=== PATIENT | female | born 1985 | race Caucasian/White ===

== ENCOUNTER 2016-04-04 04:30 | Emergency (ER) | payer OTHER ==
[2016-04-04] MEDS ORDERED: SODIUM CHLORIDE 1,000 ML IV STA (05:35)
[2016-04-04] MEDS ORDERED: ONDANSETRON 4 MG/2 ML VIAL IVPB ONE (05:35)
[2016-04-04 05:55] VITALS: TEMP 98.1; BMI 41.8
[2016-04-04] MEDS ORDERED: ONDANSETRON 4 MG/2 ML VIAL ONE (06:07)
--- NOTE | 2016-04-04 06:12 | PDOC ---
[id number] 4d CHEST PAIN Time Seen by Provider: 04/04/16 04:34 History Source: Patient, Family Exam Limitations: Intoxication - History of Present Illness Initial Comments: 04/04/16 05:37 31yo Female presented to ED via EMS from home for chest pain. According to patients' 13yo daughter patient had been drinking vodka since yesterday night. Unable to get history of present illness from patient due to clinical condition. Patient however, denies drug use. LNMP: Mar 05. She denies any other complaints at this time. Timing/Duration: 4-6 hours Modifying Factors: worse with: cold therapy, eating, immobilization, medication , movement, rest, other Associated Symptoms: denies: denies symptoms, chest pain, cough, diaphoresis, fever/chills, headaches, loss of appetite, malaise, nausea/vomiting, rash, seizure, shortness of breath, syncope, weakness, other Past History - Travel Traveled outside of the country in the last 30 days: No Close contact w/someone who was outside of country & ill: No - Past Medical History Allergies/Adverse Reactions: Allergies Allergy/AdvReac Type Severity Reaction Status Date / Time No Known Allergies Allergy Verified 04/04/16 04:42 Home Medications: Ambulatory Orders Alprazolam [Xanax] 0.25 mg PO BID PRN 10/31/15 Anemia: Yes (b12) Asthma: No Cancer: No Cardiac Disorders: No CVA: No COPD: No CHF: No Dementia: No Diabetes: No GI Disorders: Yes (gallstone) Disorders: No HTN: No Hypercholesterolemia: No Liver Disease: No Psychiatric Problems: Yes (ANXIETY) Seizures: No Thyroid Disease: No - Surgical History Abdominal Surgery: No Appendectomy: No Cardiac Surgery: No Cholecystectomy: Yes Lung Surgery: No Neurologic Surgery: No Orthopedic Surgery: No - Immunization History Immunization Up to Date: Yes - Psycho/Social/Smoking Cessation Hx Anxiety: Yes Suicidal Ideation: No Smoking Status: Yes Smoking History: Never smoked Have you smoked in the past 12 months: No Number of Cigarettes Smoked Daily: 2 Cigars Per Day: 0 Information on smoking cessation initiated: No Hx Alcohol Use: No Drug/Substance Use Hx: No Substance Use Type: None Hx Substance Use Treatment: No Review of Systems - Review of Systems Constitutional: Yes: Other (Intoxication) HEENTM: No: Blurred Vision, Cataracts Respiratory: No: Cough, Orthopnea, Shortness of Breath, Stridor, Wheezing Cardiac (ROS): Yes: Chest Pain. No: Edema, Irregular Heart Rate, Palpitations, Chest Tightness ABD/GI: No: Diarrhea, Nausea, Vomiting : No: Burning, Dysuria, Frequency, Flank Pain, Hematuria Musculoskeletal: No: Back Pain, Muscle Pain Integumentary: No: Bruising, Dryness, Rash Neurological: No: Headache, Numbness, Seizure, Tingling, Tremors, Weakness, Dizziness All Other Systems: Reviewed and Negative *Physical Exam - Vital Signs Last Vital Signs Temp Pulse Resp BP Pulse Ox 98.1 F 79 20 110/63 98 04/04/16 04:42 04/04/16 04:42 04/04/16 04:42 04/04/16 04:42 04/04/16 04:42 - Physical Exam General Appearance: Yes: Intoxicated. No: Mild Distress, Moderate Distress, Severe Distress HEENT: positive: EOMI, ARLETH (Dilated pupils), Normal ENT Inspection Neck: positive: Trachea midline, Supple. negative: Stridor, Lymphadenopathy (R) , Lymphadenopathy (L) Respiratory/Chest: positive: Lungs Clear, Normal Breath Sounds Cardiovascular: positive: Regular Rhythm, Regular Rate Gastrointestinal/Abdominal: positive: Normal Bowel Sounds, Soft, Other (Large Abdomen) Lymphatic: negative: Adenopathy Musculoskeletal: positive: Normal Inspection. negative: CVA Tenderness, CVA Tenderness (R), CVA Tenderness (L), Decreased Range of Motion Extremity: positive: Normal Capillary Refill, Normal Inspection, Normal Range of Motion Integumentary: positive: Normal Color, Dry, Warm. negative: Rash, Swelling Medical Decision Making - Medical Decision Making 04/04/16 06:17 Patient refusing all treatment at this time. Patient is intoxicated. *DC/Admit/Observation/Transfer Diagnosis at time of Disposition: Alcohol intoxication Qualifiers: Complication of substance-induced condition: uncomplicated Qualified Code(s): F10.120 - Alcohol abuse with intoxication, uncomplicated - Discharge Dispostion Disposition: HOME Condition at time of disposition: Improved - Patient Instructions Printed Discharge Instructions: DI for Alcohol Abuse Additional Instructions: Drink plenty of fluids today eating bland food only and advance as tolerated. Avoid alcohol use. Follow-up with the PCP as needed.
--- NOTE | 2016-04-04 07:51 | PDOC ---
*Physical Exam - Vital Signs Last Vital Signs Temp Pulse Resp BP Pulse Ox 98.1 F 79 20 110/63 98 04/04/16 04:42 04/04/16 04:42 04/04/16 04:42 04/04/16 04:42 04/04/16 04:42 ED Treatment Course - Medications Given in the ED: ED Medications Discontinued Medications Generic Name Dose Route Start Last Admin Trade Name Randall PRN Reason Stop Dose Admin Sodium Chloride 1,000 mls @ 1,000 mls/hr 04/04/16 05:35 04/04/16 06:30 Normal Saline - IV 04/04/16 06:34 Not Given ASDIR STA Ondansetron HCl 4 mg 04/04/16 05:35 04/04/16 06:30 Zofran Injection IVPB 04/04/16 05:36 Not Given ONCE ONE Medical Decision Making - Medical Decision Making 04/04/16 07:50 Patient received from nurse practitioner Wilner. Patient here for alcohol intoxication. patient refusing lab work and fluids. Patient is arousable but requesting to sleep and be left alone. Teenage daughter at bedside also sleeping. Will reevaluate shortly 04/04/16 09:34 Patient is ambulatory and using the phone. Patient is requesting to go home. Patient states is waiting for ride from her mother. Patient to be discharged. Revitalize Selected Entries 04/04/16 09:53 Pulse Rate [ 83 Radial] Respiratory 18 Rate Blood Pressure 100/69 [Right Arm] O2 Sat by Pulse 100 Oximetry (%) *DC/Admit/Observation/Transfer Diagnosis at time of Disposition: Alcohol intoxication Qualifiers: Complication of substance-induced condition: uncomplicated Qualified Code(s): F10.120 - Alcohol abuse with intoxication, uncomplicated - Discharge Dispostion Disposition: HOME Condition at time of disposition: Improved - Patient Instructions Printed Discharge Instructions: DI for Alcohol Abuse Additional Instructions: Drink plenty of fluids today eating bland food only and advance as tolerated. Avoid alcohol use. Follow-up with the PCP as needed.
[2016-04-04 09:54] VITALS: BP 100/69; PULSE 83
--- NOTE | 2016-04-04 12:24 | EKG ---
Test Reason : Blood Pressure : / mmHG Vent. Rate : 090 BPM Atrial Rate : 090 BPM P-R Int : 174 ms QRS Dur : 104 ms QT Int : 368 ms P-R-T Axes : 007 074 032 degrees QTc Int : 450 ms NORMAL SINUS RHYTHM NORMAL ECG WHEN COMPARED WITH ECG OF 31-OCT-2015 09:15, NO SIGNIFICANT CHANGE WAS FOUND Confirmed by MER CARMICHAEL MD ([id number]) on 04/04/2016 12:23:52 PM Referred By: Confirmed By:MER CARMICHAEL MD
== END 2016-04-04 09:52 | disposition home or self-care (01) ==
LOC: JER 04:30
DX: F10.120 Alcohol abuse with intoxication, uncomplicated (principal)
CPT/HCPCS: 93005; 93010; 99283-25

== ENCOUNTER → 2016-07-15 | Emergency (ER) | payer OTHER ==
[2016-07-15 17:15] VITALS: TEMP 98; BMI 38.9
--- NOTE | 2016-07-15 17:25 | PDOC ---
History of Present Illness - General History Source: Patient Exam Limitations: No Limitations <Gamal Navarro - Last Filed: 07/15/16 18:49> <Lasha Trevizo - Last Filed: 07/15/16 19:36> - General Chief Complaint: Chest Pain Stated Complaint: LT SIDE FACE PAIN/CHEST PAIN Time Seen by Provider: 07/15/16 17:20 - History of Present Illness Initial Comments: 31 yo F with h/o anxiety, GERD, cholecystectomy and tubal ligation presented to the ED with chest pain and RLQ pain. The chest pain started few days ago in upper chest bilaterally radiates to L jaw and this morning a new chest pain started substernal, 10/10, radiates to her back, associated with nausea, resolved now. Her RLQ pain is dull, non-radiating, 10/10 at worst, associated with yellowish spotting. Her last menstrual period was on 06/27 and her periods have been regular. Denies fever, chills, vomiting, sob, urinary or bowel symptoms. (Gamal Navarro) Past History - Past Medical History Anemia: Yes (b12) Asthma: No Cancer: No Cardiac Disorders: No CVA: No COPD: No CHF: No Dementia: No Diabetes: No GI Disorders: Yes (gallstone) Disorders: No HTN: No Hypercholesterolemia: No Liver Disease: No Psychiatric Problems: Yes (ANXIETY) Seizures: No Thyroid Disease: No - Surgical History Abdominal Surgery: No Appendectomy: No Cardiac Surgery: No Cholecystectomy: Yes Lung Surgery: No Neurologic Surgery: No Orthopedic Surgery: No - Immunization History Immunization Up to Date: Yes - Psycho/Social/Smoking Cessation Hx Anxiety: Yes Suicidal Ideation: No Smoking Status: Yes Smoking History: Never smoked Have you smoked in the past 12 months: No Number of Cigarettes Smoked Daily: 2 Cigars Per Day: 0 Information on smoking cessation initiated: No Hx Alcohol Use: No Drug/Substance Use Hx: No Substance Use Type: None Hx Substance Use Treatment: No <Gamal Navarro - Last Filed: 07/15/16 18:49> <Lasha Trevizo - Last Filed: 07/15/16 19:36> - Past Medical History Allergies/Adverse Reactions: Allergies Allergy/AdvReac Type Severity Reaction Status Date / Time No Known Allergies Allergy Verified 04/04/16 04:42 Home Medications: Ambulatory Orders NK [No Known Home Medication] 07/15/16 Cardiac Specific PMH - Complaint Specific PMHX GERD: Yes Pacemaker: No <RamonGamal - Last Filed: 07/15/16 18:49> Review of Systems - Review of Systems Able to Perform ROS?: Yes Is the patient limited [place] proficient: No Constitutional: No: Chills, Fever Respiratory: No: Cough, Shortness of Breath Cardiac (ROS): Yes: Chest Pain, Lightheadedness ABD/GI: Yes: Other (RLQ pain) : No: Dysuria <Gamal Navarro - Last Filed: 07/15/16 18:49> *Physical Exam - Physical Exam General Appearance: No: Apparent Distress Respiratory/Chest: positive: Lungs Clear, Normal Breath Sounds Cardiovascular: positive: Regular Rhythm, Regular Rate, S1, S2. negative: Murmur Gastrointestinal/Abdominal: positive: Normal Bowel Sounds, Soft, Tenderness (RLQ ). negative: Distended Musculoskeletal: negative: CVA Tenderness (R), CVA Tenderness (L) Neurologic: positive: Fully Oriented, Alert <Gamal Navarro - Last Filed: 07/15/16 18:49> - Vital Signs Last Vital Signs Temp Pulse Resp BP Pulse Ox 98 F 65 16 108/65 100 07/15/16 17:12 07/15/16 18:31 07/15/16 18:31 07/15/16 18:31 07/15/16 18:31 ED Treatment Course - LABORATORY CBC & Chemistry Diagram: 07/15/16 18:25 07/15/16 18:25 <Gamal Navarro - Last Filed: 07/15/16 18:49> - LABORATORY CBC & Chemistry Diagram: 07/15/16 18:25 07/15/16 18:25 <Santhosh,Lasha - Last Filed: 07/15/16 19:36> - ADDITIONAL ORDERS Additional order review: Laboratory Results 07/15/16 18:00 Urine Color Yellow Urine Appearance Clear Urine pH 5.0 Ur Specific [place] 1.029 Urine Protein Negative Urine Glucose (UA) Negative Urine Ketones Trace H Urine Blood Negative Urine Nitrite Negative Urine Bilirubin Negative Urine Urobilinogen Negative Ur Leukocyte Esterase Negative Urine HCG, Qual Negative 07/15/16 18:25 RBC 4.35 MCV 86.6 MCHC 33.5 RDW 13.5 MPV 7.9 Neutrophils % 62.1 Lymphocytes % 27.9 Monocytes % 6.9 Eosinophils % 2.7 Basophils % 0.4 Medical Decision Making <Gamal Navarro - Last Filed: 07/15/16 18:49> <Lasha Trevizo - Last Filed: 07/15/16 19:36> - Medical Decision Making 07/15/16 18:10 ACS unlikely. Will obtain UA and test (Gamal Navarro) *DC/Admit/Observation/Transfer - Discharge Dispostion Admit: No <Gamal Navarro - Last Filed: 07/15/16 18:49> - Discharge Dispostion Admit: No <Lasha Trevizo - Last Filed: 07/15/16 19:36> Diagnosis at time of Disposition: Atypical chest pain - Discharge Dispostion Disposition: HOME Condition at time of disposition: Stable - Referrals Referrals: Allison Gomes MD [Primary Care Provider] - - Patient Instructions Printed Discharge Instructions: DI for Atypical Chest Pain Additional Instructions: You were seen in the ER for pain in the chest and lower abdomen. All lab works are normal and the pains are not likely associated with any life threatening condition. Please follow up with your primary doctor and come back to the ER if the symptoms are getting worse.
[2016-07-15 18:18] LABS: URINE APPEARANCE CLEAR; URINE BILIRUBIN NEGATIVE (NEGATIVE); URINE BLOOD NEGATIVE (NEGATIVE); URINE COLOR YELLOW; URINE GLUCOSE (UA) NEGATIVE (NEGATIVE); URINE KETONE TRACE (NEGATIVE); URINE LEUK ESTERASE NEGATIVE (NEGATIVE); URINE NITRITE NEGATIVE (NEGATIVE); URINE PROTEIN NEGATIVE (NEGATIVE); URINE UROBILINOGEN NEGATIVE E.U./dl (0.2-1.0)
[2016-07-15 18:32] VITALS: BP 108/65; PULSE 65
[2016-07-15 18:34] LABS: BASOPHIL 0.4 % (0-2.0); EOSINOPHIL 2.7 % (0-4.5); MCHC 33.5 g/dl (32.0-36.0); MEAN CELL VOLUME 86.6 fl (80-96); MEAN PLT VOLUME 7.9 fl (7.5-11.1); NEUTROPHILS 62.1 % (42.8-82.8); PLATELET COUNT 297 K/MM3 (134-434); RDW 13.5 % (11.6-15.6); WHITE BLOOD COUNT 9.4 K/mm3 (4.0-10.0)
--- NOTE | 2016-07-15 18:54 | PDOC ---
Attending Attestation - Resident Resident Name: Gamal Navarro - ED Attending Attestation I have performed the following: I have examined & evaluated the patient, The case was reviewed & discussed with the resident, I agree w/resident's findings & plan - HPI HPI: 07/15/16 18:49 31y F hx of anxiety, gerd, s/p cholecystectomy presents with chest pain. Pt states she came to the ED today due to a mid epigastric/substernal pain that started when she sitting on the bus, was squeezing in nature, and radiated to back associated w/ nausea lasting for approx 20-30 min. Pt endorses feeling sypmtoms like this frequently in the past and has been reerred to cardiology - had a holter monitor and stress test in late 2015 that was normal. The pt was also referred to GI in the past. Therew as no associated sob, cough, numbness/ tingling/weakness, fever/chills. Pt also endorsed having a mild rlq pain associated with brownish spotting, no urinary complaints. pt symptoms have resolved and pt states she feels fine currently. her sypmtoms are not associated with exertion. i doubt the pts sypmtoms are cardiac in nature. her ekg is normal here as symptoms resolved, i doubt pancreatitis consider possible esophageal spasm? no tenderness on my exam to her abdomen will ck basic labs, cmp, ua hcg to r/o if neg will dc the pt to fu with pmd - Physicial Exam PE: 07/18/16 10:17 see above - Medical Decision Making 07/18/16 10:17 see [email or web address] Heart Score/ECG Review - ECG Impressions Comment:: 07/15/16 18:49 Twelve-lead EKG was performed and reviewed by me. There is normal sinus rhythm with a normal rate. Rate of 66 The axis is normal. The intervals are normal. There is normal R wave progression There are no ST or T wave abnormalities. Impression: Normal twelve-lead EKG
[2016-07-15 19:16] LABS: ALBUMIN 3.8 g/dl (3.4-5.0); ANION GAP 9 (8-16); BILIRUBIN,TOTAL 0.6 mg/dL (0.2-1.0); CALCIUM 9.1 mg/dL (8.5-10.1); CO2 28 mmol/L (21-32); COCKROFT - GAULT 185.045; CREATININE 0.7 mg/dL (0.55-1.02); GLUCOSE,RANDOM 93 mg/dL (74-106); SGOT/AST 18 U/L (15-37); SGPT/ALT 34 U/L (12-78); TOT PROT 7.3 g/dl (6.4-8.2)
[2016-07-15 19:17] LABS: ALK PHOS 77 U/L (45-117)
--- NOTE | 2016-07-16 09:54 | EKG ---
Test Reason : Blood Pressure : / mmHG Vent. Rate : 066 BPM Atrial Rate : 066 BPM P-R Int : 144 ms QRS Dur : 108 ms QT Int : 410 ms P-R-T Axes : 001 051 041 degrees QTc Int : 429 ms NORMAL SINUS RHYTHM RCVD WHEN COMPARED WITH ECG OF 04-APR-2016 04:42, NO SIGNIFICANT CHANGE WAS FOUND Confirmed by MD SANTAMARIA MARJORY ([id number]) on 07/16/2016 9:54:43 AM Referred By: Confirmed By:LOR SANTAMARIA MD
== END | disposition home or self-care (01) ==
LOC: JER 17:05
DX: R07.89 Other chest pain (principal); K21.9 Gastro-esophageal reflux disease without esophagitis; F41.9 Anxiety disorder, unspecified
CPT/HCPCS: 36415; 80053; 81003; 84703; 85025; 93005; 93010; 99283-25

== ENCOUNTER 2016-08-22 10:37 | Emergency (ER) | payer OTHER ==
[2016-08-22 10:57] VITALS: TEMP 98; BMI 38.0
[2016-08-22] MEDS ORDERED: morphine CARPU-JECT 4 MG/1 ML DISP.SYRIN IVPUSH ONE (11:12)
[2016-08-22] MEDS ORDERED: ONDANSETRON 4 MG/2 ML VIAL IVPUSH ONE (11:12)
[2016-08-22] MEDS ORDERED: SODIUM CHLORIDE 1,000 ML IV STA (11:12)
--- NOTE | 2016-08-22 11:21 | PDOC ---
History of Present Illness - General History Source: Patient Exam Limitations: No Limitations <Sunny Hawk - Last Filed: 08/22/16 13:23> - General History Source: Patient Exam Limitations: No Limitations - History of Present Illness Initial Comments: 08/22/16 11:21 The patient is a 31 year old female with a significant past medical history of anxiety, GERD s/p cholecystectomy, presenting to the Emergency Department with right side flank pain since yesterday. The patient describes the pain as an intermittent sharp and squeezing sensation to her right side, nonradiating. She states that the pain started gradually yesterday afternoon, and admits that she felt fine yesterday morning. She denies exacerbating factors, and reports that pressing on her side or leaning to the right slightly alleviates the pain. She also reports nausea, but denies vomiting. She denies previously experiencing similar pain. The patient denies history of kidney stones. Patient denies vomiting, or diarrhea. Patient denies fever, cough, and chills. Patient denies dysuria, urinary frequency, and urgency. Patient denies headache, dizziness, and visual changes. Surgical Hx: tubal ligation <Angelique Castro - Last Filed: 08/22/16 13:40> - General Chief Complaint: Pain Stated Complaint: ABD/ SIDE PAIN Time Seen by Provider: 08/22/16 11:04 Past History - Past Medical History Anemia: Yes (b12) Asthma: No Cancer: No Cardiac Disorders: No CVA: No COPD: No CHF: No Dementia: No Diabetes: No GI Disorders: Yes (gallstone) Disorders: No HTN: No Hypercholesterolemia: No Liver Disease: No Psychiatric Problems: Yes (ANXIETY) Seizures: No Thyroid Disease: No - Surgical History Abdominal Surgery: No Appendectomy: No Cardiac Surgery: No Cholecystectomy: Yes Lung Surgery: No Neurologic Surgery: No Orthopedic Surgery: No - Reproductive History Cervical CA: No Dysfunctional Uterine Bleeding: No Ectopic : No Endometrial CA: No Therapeutic (s) & number: No Tubal Ligation: Yes - Immunization History Immunization Up to Date: Yes - Psycho/Social/Smoking Cessation Hx Anxiety: Yes Suicidal Ideation: No Smoking Status: Yes Smoking History: Current some day smoker Have you smoked in the past 12 months: No Number of Cigarettes Smoked Daily: 3 Cigars Per Day: 0 Information on smoking cessation initiated: Yes 'Breaking Loose' booklet given: 08/22/16 Hx Alcohol Use: No Drug/Substance Use Hx: Yes (occassionally) Substance Use Type: None Hx Substance Use Treatment: No <Sunny Hawk - Last Filed: 08/22/16 13:23> <Angelique Castro - Last Filed: 08/22/16 13:40> - Past Medical History Allergies/Adverse Reactions: Allergies Allergy/AdvReac Type Severity Reaction Status Date / Time No Known Allergies Allergy Verified 08/22/16 10:57 Home Medications: Ambulatory Orders Naproxen [Naprosyn -] 500 mg PO BID PRN #20 tablet 08/22/16 Ondansetron HCl [Zofran] 4 mg PO Q8H PRN #15 tablet 08/22/16 Oxycodone HCl/Acetaminophen [Percocet 5-325 mg Tablet] 1 tab PO Q6H PRN #15 tablet MDD 4 08/22/16 Tamsulosin HCl [Flomax] 0.4 mg PO DAILY #14 cap.er.24h 08/22/16 Review of Systems - Review of Systems Able to Perform ROS?: Yes Comments:: 08/22/16 11:21 CONSTITUTIONAL: No reported: Fever, Chills, Diaphoresis, Generalized Weakness, Malaise, Loss of Appetite HEENT: No reported: Rhinorrhea, Nasal Congestion, Throat Pain, Throat Swelling, Difficulty Swallowing, Mouth Swelling, Ear Pain, Eye Pain, Visual Changes CARDIOVASCULAR: No reported: Chest Pain, Syncope, Palpitations, Irregular Heart Rate, Lightheadedness, Peripheral Edema RESPIRATORY: No reported: Cough, Shortness of Breath, SOB with Exertion, Orthopnea, Wheezing , Stridor, Hemoptysis GASTROINTESTINAL: Reported: + nausea No reported: Abdominal pain, Abdominal Distension, Vomiting, Diarrhea, Constipation, Melena, Hematochezia GENITOURINARY: Reported: + right side flank pain No reported: Dysuria, Frequency, Urgency, Hesitancy, Genital Pain MUSCULOSKELETAL: No reported: Myalgia, Arthralgia, Joint Swelling, Back pain, Neck Pain SKIN: No reported: Rash, Itching, Pallor HEMATOLOGIC/IMMUNOLOGIC: No reported: Easy Bleeding, Easy Bruising, Lymphadenopathy, Frequent infections ENDOCRINE: No reported: Unexplained Weight Gain, Unexplained Weight Loss, Heat Intolerance , Cold Intolerance NEUROLOGIC: No reported: Headache, Focal Weakness, Paresthesias, Vertigo, Lightheadedness, Unsteady Gait, Seizure, Mental Status Changes, Incontinence PSYCHIATRIC: No reported: Anxiety, Depression <Angelique Castro - Last Filed: 08/22/16 13:40> *Physical Exam - Vital Signs Last Vital Signs Temp Pulse Resp BP Pulse Ox 98 F 98 H 16 104/60 98 08/22/16 10:51 08/22/16 10:51 08/22/16 10:51 08/22/16 10:51 08/22/16 10:51 <Sunny Hawk - Last Filed: 08/22/16 13:23> - Vital Signs Last Vital Signs Temp Pulse Resp BP Pulse Ox 98 F 98 H 16 104/60 98 08/22/16 10:51 08/22/16 10:51 08/22/16 10:51 08/22/16 10:51 08/22/16 10:51 - Physical Exam Comments: 08/22/16 11:21 GENERAL: The patient is awake, alert, and fully oriented, Nontoxic - in no acute distress. HEAD: Normocephalic, atraumatic. EYES: extraocular movements intact, sclera anicteric, conjunctiva clear. ENT: Normal voice, Moist mucous membranes. NECK: Normal range of motion, No JVD LUNGS: Breath sounds equal, clear to auscultation bilaterally. No wheezes, no rhonchi, no rales. HEART: Regular rate and rhythm, normal S1 and S2 without murmur, rub or gallop. ABDOMEN: Right CVA tenderness. Soft, normoactive bowel sounds. No guarding, no rebound. No masses. EXTREMITIES: Normal range of motion, no edema. No clubbing or cyanosis. No cords , erythema, or tenderness. NEUROLOGICAL: No facial asymmetry, Normal speech, normal gait. PSYCH: Normal mood, normal affect. SKIN: Warm, Dry, normal turgor. <Angelique Castro - Last Filed: 08/22/16 13:40> ED Treatment Course - LABORATORY CBC & Chemistry Diagram: 08/22/16 11:22 08/22/16 11:22 - RADIOLOGY Radiology Studies Ordered: Category Date Time Status SPIRAL- RENAL-STONE CT [CT] Stat CT Scan 08/22/16 11:12 Ordered <Sunny Hawk - Last Filed: 08/22/16 13:23> - LABORATORY CBC & Chemistry Diagram: 08/22/16 11:22 08/22/16 11:22 - RADIOLOGY Radiograph Interpretation: 08/22/16 13:[address] As reviewed by Dr. Rich Hannah IMPRESSION: Faint proximal ureteral calculus with mild fullness of the upper collecting system. <Angelique Castro - Last Filed: 08/22/16 13:40> Medical Decision Making - Medical Decision Making 08/22/16 11:18 A portion of this note was documented by scribe services under my direction. I have reviewed the details of the note, within reason, and agree with the documentation with the following case summary and management plan written by me. Patient treated in the ED. Nursing notes are reviewed and incorporated into the medical decision-making. Vital signs reviewed. Peripheral IV access obtained by the nurse, laboratory studies are drawn and sent, reviewed and interpreted by myself. Vital Signs Temp Pulse Resp BP Pulse Ox 98 F 98 H 16 104/60 98 08/22/16 10:51 08/22/16 10:51 08/22/16 10:51 08/22/16 10:51 08/22/16 10:51 31 year old female with PMH of cholecystectomy, obesity p/w R flank pain since yesterday afternoon. Reports intermittent R flank pain that's sharp with no radiation. Has nausea but no vomiting. Denies hematuria, dysuria, fevers, chills , abdominal pain. Differential includes pyelonephritis, renal colic. Need labs, UA, spiral CT, pain control and reassess. 08/22/16 13:17 CT reviewed. Demonstrated and proximal right ureteral calculus with mild fullness of the right collecting system. CBC, BMP 08/22/16 11:22 08/22/16 11:22 CMP Sodium 138 mmol/L (136-145) 08/22/16 11:22 Potassium 4.4 mmol/L (3.5-5.1) 08/22/16 11:22 Chloride 102 mmol/L (98-107) 08/22/16 11:22 Carbon Dioxide 27 mmol/L (21-32) 08/22/16 11:22 Anion Gap 9 (8-16) 08/22/16 11:22 BUN 12 mg/dL (7-18) 08/22/16 11:22 Creatinine 0.7 mg/dL (0.55-1.02) 08/22/16 11:22 Creat Clearance w eGFR > 60 (>60) 08/22/16 11:22 Random Glucose 94 mg/dL (74-106) 08/22/16 11:22 Calcium 9.2 mg/dL (8.5-10.1) 08/22/16 11:22 Total Bilirubin 0.6 mg/dL (0.2-1.0) 08/22/16 11:22 AST 11 U/L (15-37) L D 08/22/16 11:22 ALT 22 U/L (12-78) D 08/22/16 11:22 Alkaline Phosphatase 79 U/L (45-117) 08/22/16 11:22 Total Protein 7.0 g/dl (6.4-8.2) 08/22/16 11:22 Albumin 3.7 g/dl (3.4-5.0) 08/22/16 11:22 Lipase 117 U/L (73-393) 08/22/16 11:22 Urine Test Results Urine Color Straw 08/22/16 11:20 Urine Appearance Clear 08/22/16 11:20 Urine pH 7.0 (5.0-8.0) D 08/22/16 11:20 Urine Protein Negative (NEGATIVE) 08/22/16 11:20 Urine Glucose (UA) Negative (NEGATIVE) 08/22/16 11:20 Urine Ketones Negative (NEGATIVE) 08/22/16 11:20 Urine Blood Negative (NEGATIVE) 08/22/16 11:20 Urine Nitrite Negative (NEGATIVE) 08/22/16 11:20 Urine Bilirubin Negative (NEGATIVE) 08/22/16 11:20 Ur Leukocyte Esterase Negative (NEGATIVE) 08/22/16 11:20 Labs reviewed and imaging reviewed. Patient's pain is likely secondary to renal colic. Patient's pain improved with medications. Pain instructions were given. Patient's tolerating by mouth. Return precautions given. We'll refer to urologist. Discharge diagnosis: Renal colic I discussed the physical exam findings, ancillary test results and final diagnoses with the patient. I answered all of the patient's questions. The patient was satisfied with the care received and felt comfortable with the discharge plan and treatment plan. The patient will call their primary care physician within 24 hours to arrange follow-up and will return to the Emergency Department with any new, persistant or worsening symptoms. <Sunny Hawk - Last Filed: 08/22/16 13:23> *DC/Admit/Observation/Transfer - Discharge Dispostion Admit: No <Sunny Hawk - Last Filed: 08/22/16 13:23> - Attestations Scribe Attestion: 08/22/16 11:22 Documentation prepared by Angelique Castro, acting as medical underwriter for Sunny Hawk MD. <Angelique Castro - Last Filed: 08/22/16 13:40> Diagnosis at time of Disposition: Renal colic - Discharge Dispostion Disposition: HOME Condition at time of disposition: Improved - Prescriptions Prescriptions: Tamsulosin HCl [Flomax] 0.4 mg PO DAILY #14 cap.er.24h Naproxen [Naprosyn -] 500 mg PO BID PRN #20 tablet PRN Reason: Pain Oxycodone HCl/Acetaminophen [Percocet 5-325 mg Tablet] 1 tab PO Q6H PRN #15 tablet MDD 4 PRN Reason: Pain Level 6-10 Ondansetron HCl [Zofran] 4 mg PO Q8H PRN #15 tablet PRN Reason: Nausea - Referrals Referrals: Jean Clayton MD [Staff Physician] - - Patient Instructions Printed Discharge Instructions: DI for Kidney Stones Additional Instructions: Take 500 mg of naproxen every 12 hours needed for pain. For additional relief, take one tablet Percocet every 6 hours needed. Do not drink or drive on this medication as this will cause dizziness. Please take Flomax daily as prescribed to help assist with your kidney stones. For nausea, take a tablet of Zofran every 8 hours as needed. Please make an appointment with urologist. It may take several days to potentially 2 weeks to pediatric kidney stone. - Post Discharge Activity Work/School Note: Back to Work
[2016-08-22] MEDS ORDERED: ONDANSETRON 4 MG/2 ML VIAL ONE (11:28)
[2016-08-22] MEDS ORDERED: morphine CARPU-JECT 4 MG/1 ML DISP.SYRIN ONE (11:28)
[2016-08-22 11:30] LABS: BASOPHIL 0.8 % (0-2.0); EOSINOPHIL 2.7 % (0-4.5); MCH 29.1 pg (25.7-33.7); MCHC 33.7 g/dl (32.0-36.0); MEAN CELL VOLUME 86.5 fl (80-96); MEAN PLT VOLUME 7.9 fl (7.5-11.1); NEUTROPHILS 59.8 % (42.8-82.8); PLATELET COUNT 273 K/MM3 (134-434); RDW 13.7 % (11.6-15.6); WHITE BLOOD COUNT 8.5 K/mm3 (4.0-10.0)
[2016-08-22 11:38] LABS: URINE APPEARANCE CLEAR; URINE BILIRUBIN NEGATIVE (NEGATIVE); URINE BLOOD NEGATIVE (NEGATIVE); URINE COLOR STRAW; URINE GLUCOSE (UA) NEGATIVE (NEGATIVE); URINE KETONE NEGATIVE (NEGATIVE); URINE LEUK ESTERASE NEGATIVE (NEGATIVE); URINE NITRITE NEGATIVE (NEGATIVE); URINE PROTEIN NEGATIVE (NEGATIVE); URINE UROBILINOGEN NEGATIVE E.U./dl (0.2-1.0)
[2016-08-22 12:01] LABS: ALBUMIN 3.7 g/dl (3.4-5.0); ALK PHOS 79 U/L (45-117); ANION GAP 9 (8-16); BILIRUBIN,TOTAL 0.6 mg/dL (0.2-1.0); CALCIUM 9.2 mg/dL (8.5-10.1); CO2 27 mmol/L (21-32); COCKROFT - GAULT 186.8045; CREATININE 0.7 mg/dL (0.55-1.02); GLUCOSE,RANDOM 94 mg/dL (74-106); SGOT/AST 11 U/L (15-37); SGPT/ALT 22 U/L (12-78)
[2016-08-22] MEDS ORDERED: KETOROLAC TROMETHAMINE 30 MG/1 ML VIAL IVPUSH ONE (13:10)
[2016-08-22] MEDS ORDERED: TAMSULOSIN HCL 0.4 MG CAP.ER.24H (FP) PO ONE (13:16)
[2016-08-22] MEDS ORDERED: KETOROLAC TROMETHAMINE 30 MG/1 ML VIAL ONE (13:21)
[2016-08-22] MEDS ORDERED: TAMSULOSIN HCL 0.4 MG CAP.ER.24H (FP) ONE (13:21)
[2016-08-22 13:39] VITALS: BP 98/63; PULSE 68
== END 2016-08-22 13:37 | disposition home or self-care (01) ==
LOC: JER 10:37
PROC: 3E0337Z Introduction of Electrolytic and Water Balance Substance into Peripheral Vein, Percutaneous Approach (ICD-10-PCS; principal; 2016-08-22)
PROC: 3E033NZ Introduction of Analgesics, Hypnotics, Sedatives into Peripheral Vein, Percutaneous Approach (ICD-10-PCS; 2016-08-22)
PROC: 3E0333Z Introduction of Anti-inflammatory into Peripheral Vein, Percutaneous Approach (ICD-10-PCS; 2016-08-22)
PROC: 3E033GC Introduction of Other Therapeutic Substance into Peripheral Vein, Percutaneous Approach (ICD-10-PCS; 2016-08-22)
DX: N23 Unspecified renal colic (principal)
CPT/HCPCS: 36415; 74176; 80053; 81003; 83690; 84703; 85025; 87086; 96361; 96374; 96375; 99283-25

== ENCOUNTER 2016-11-23 00:30 | Emergency (ER) | payer SELFPAY ==
[2016-11-23 00:39] VITALS: BP 142/72; PULSE 68; TEMP 98.4; BMI 39.1
--- NOTE | 2016-11-23 03:20 | PDOC ---
History of Present Illness - General Chief Complaint: Rectal Bleed Stated Complaint: RECTAL BLEEDING,ABD PAIN Time Seen by Provider: 11/23/16 02:48 History Source: Patient Exam Limitations: No Limitations - History of Present Illness Travel History: No Initial Comments: 11/23/16 03:15 31yo Female patient w/ PmHx: GERD, Renal colic, , Cholecystecomy presents to ED c/o rectal bleeding, right flank pain, which began around 11pm tonight. Patient denies n/v, CP, Diff breathing, rash, fever, or any other complaints at this time. Associated diarrhea. LNMP: Tubal Ligation (2009). Timing/Duration: reports: intermittent Quality: reports: moderate, sharpness Abdominal Pain Onset Location: reports: periumbilical Pain Radiation: reports: no radiation Activities at Onset: reports: no specific activity Treatment Prior to Arrive: worse with: analgesics, antacids, cold pack, heat, laxative, enema, other Aggravating Factors: worse with: None, Defecation, Eating, Emotional upset, Exertion, [place], Movement, Voiding, Change in position Alleviating Factors: worse with: None, Belching, Shallow Breathing, Defecation, Eating, Holding Breath, Passing Gas, Change in Position, Rest, Voiding, Vomiting Past History - Travel Traveled outside of the country in the last 30 days: No Close contact w/someone who was outside of country & ill: No - Past Medical History Allergies/Adverse Reactions: Allergies Allergy/AdvReac Type Severity Reaction Status Date / Time No Known Allergies Allergy Verified 11/23/16 00:39 Home Medications: Ambulatory Orders Naproxen [Naprosyn -] 500 mg PO BID PRN #20 tablet 08/22/16 Ondansetron HCl [Zofran] 4 mg PO Q8H PRN #15 tablet 08/22/16 Oxycodone HCl/Acetaminophen [Percocet 5-325 mg Tablet] 1 tab PO Q6H PRN #15 tablet MDD 4 08/22/16 Tamsulosin HCl [Flomax] 0.4 mg PO DAILY #14 cap.er.24h 08/22/16 Anemia: Yes (b12) Asthma: No Cancer: No Cardiac Disorders: No CVA: No COPD: No CHF: No Dementia: No Diabetes: No GI Disorders: Yes (gallstone) Disorders: No HTN: No Hypercholesterolemia: No Liver Disease: No Psychiatric Problems: Yes (ANXIETY) Seizures: No Thyroid Disease: No - Surgical History Abdominal Surgery: No Appendectomy: No Cardiac Surgery: No Cholecystectomy: Yes Lung Surgery: No Neurologic Surgery: No Orthopedic Surgery: No - Reproductive History Cervical CA: No Dysfunctional Uterine Bleeding: No Ectopic : No Endometrial CA: No Therapeutic (s) & number: No Tubal Ligation: Yes - Immunization History Immunization Up to Date: Yes - Psycho/Social/Smoking Cessation Hx Anxiety: Yes Suicidal Ideation: No Smoking Status: Yes Smoking History: Current some day smoker Have you smoked in the past 12 months: No Number of Cigarettes Smoked Daily: 3 Cigars Per Day: 0 Information on smoking cessation initiated: No 'Breaking Loose' booklet given: 08/22/16 Hx Alcohol Use: No Drug/Substance Use Hx: Yes (occassionally) Substance Use Type: None Hx Substance Use Treatment: No Abd/GI Specific PMHX - Complaint Specific PMHX Colitis: No Diverticulitis: No Gall Bladder Disease: No GERD: Yes Hepatitis: No Irritable Bowel Synd (IBS): No Pancreatitis: No GI Ulcer Disease: No Review of Systems - Review of Systems Able to Perform ROS?: Yes Is the patient limited Kazakh proficient: No ABD/GI: Yes: Diarrhea, Rectal Bleeding, Abdominal cramping. No: Blood Streaked Bowels, Constipated, Nausea, Poor Appetite, Poor Fluid Intake, Vomiting, Indigestion, Tarry Stools : Yes: Flank Pain. No: Burning, Dysuria, Hematuria Musculoskeletal: No: Back Pain Neurological: No: Headache All Other Systems: Reviewed and Negative *Physical Exam - Vital Signs Last Vital Signs Temp Pulse Resp BP Pulse Ox 98.4 F 68 18 142/72 100 11/23/16 00:36 11/23/16 00:36 11/23/16 00:36 11/23/16 00:36 11/23/16 00:36 - Physical Exam General Appearance: Yes: Nourished, Appropriately Dressed. No: Apparent Distress, Mild Distress, Moderate Distress, Severe Distress Neck: positive: Trachea midline, Normal Thyroid, Supple. negative: Decreased range of motion, Stridor, Lymphadenopathy (R), Lymphadenopathy (L), Tender lateral, Tender midline Respiratory/Chest: positive: Lungs Clear, Normal Breath Sounds. negative: Chest Tender, Respiratory Distress, Accessory Muscle Use, Labored Respiration, Rapid RR Cardiovascular: positive: Regular Rhythm, Regular Rate Gastrointestinal/Abdominal: positive: Soft, Increased Bowel Sounds. negative: Tender, Protuberent, Distended, Guarding, Rebound, Tenderness Musculoskeletal: positive: Normal Inspection. negative: CVA Tenderness, CVA Tenderness (R), CVA Tenderness (L), Decreased Range of Motion, Vertebral Tenderness Extremity: positive: Normal Capillary Refill, Normal Inspection, Normal Range of Motion. negative: Pedal Edema, Swelling, Calf Tenderness, Erythema, Inflammation Integumentary: positive: Normal Color, Dry, Warm Neurologic: positive: actuarial intern II-XII NML intact, Fully Oriented, Alert, Normal Mood/ Affect, Normal Response, Motor Strength 07/26 ED Treatment Course - LABORATORY CBC & Chemistry Diagram: 11/23/16 03:55 11/23/16 03:55 *DC/Admit/Observation/Transfer Diagnosis at time of Disposition: Bleeding hemorrhoids Abdominal pain Qualifiers: Abdominal location: periumbilical Qualified Code(s): R10.33 - Periumbilical pain - Discharge Dispostion Disposition: HOME Condition at time of disposition: Stable Admit: No - Patient Instructions Printed Discharge Instructions: DI for Rectal Bleeding, DI for Hemorrhoids Additional Instructions: FOLLOW UP WITH DR. SANDRA THIS WEEK. CALL TO SCHEDULE APPOINTMENT. INCREASE FIBER, TRY OVER THE COUNTER MIRALEX AND COLACE. DRINK PLENTY FLUIDS. Print Language: ROMANSH - Post Discharge Activity Work/School Note: Back to Work
[2016-11-23 04:06] LABS: BASOPHIL 0.3 % (0-2.0); EOSINOPHIL 3.3 % (0-4.5); MCH 29.1 pg (25.7-33.7); MCHC 33.3 g/dl (32.0-36.0); MEAN CELL VOLUME 87.4 fl (80-96); MEAN PLT VOLUME 7.8 fl (7.5-11.1); PLATELET COUNT 287 K/MM3 (134-434); RDW 14.6 % (11.6-15.6); WHITE BLOOD COUNT 10.3 K/mm3 (4.0-10.0)
[2016-11-23 04:07] LABS: STOOL FOR OCCULT BLOOD NEGATIVE (NEGATIVE)
[2016-11-23] MEDS ORDERED: morphine CARPU-JECT 2 MG/1 ML DISP.SYRIN IM ONE (04:26)
[2016-11-23 04:29] LABS: ALBUMIN 3.5 g/dl (3.4-5.0); ALK PHOS 79 U/L (45-117); AMYLASE 42 U/L (25-115); ANION GAP 8 (8-16); BILIRUBIN,TOTAL 0.5 mg/dL (0.2-1.0); CALCIUM 8.8 mg/dL (8.5-10.1); CO2 26 mmol/L (21-32); CREATININE 0.6 mg/dL (0.55-1.02); GLUCOSE,RANDOM 94 mg/dL (74-106); SGOT/AST 15 U/L (15-37); SGPT/ALT 28 U/L (12-78); TOT PROT 6.9 g/dl (6.4-8.2)
[2016-11-23 04:42] LABS: URINE APPEARANCE CLEAR; URINE BILIRUBIN NEGATIVE (NEGATIVE); URINE BLOOD TRACE-INTA (NEGATIVE); URINE COLOR LT. YELLOW; URINE GLUCOSE (UA) NEGATIVE (NEGATIVE); URINE KETONE NEGATIVE (NEGATIVE); URINE LEUK ESTERASE NEGATIVE (NEGATIVE); URINE NITRITE NEGATIVE (NEGATIVE); URINE PROTEIN NEGATIVE (NEGATIVE); URINE UROBILINOGEN 0.2 mg/dL (0.2-1.0)
== END 2016-11-23 06:44 | disposition home or self-care (01) ==
LOC: JER 00:30
PROC: 3E023NZ Introduction of Analgesics, Hypnotics, Sedatives into Muscle, Percutaneous Approach (ICD-10-PCS; principal; 2016-11-23)
DX: K64.8 Other hemorrhoids (principal); D64.9 Anemia, unspecified
CPT/HCPCS: 36415; 74176-TC; 80053; 81003; 82150; 82272; 83690; 84703; 85025; 99282-25

== ENCOUNTER 2017-04-18 14:16 | Emergency (ER) | payer OTHER ==
[2017-04-18 14:36] VITALS: BP 162/82; PULSE 82; TEMP 98.3; BMI 45.1
--- NOTE | 2017-04-18 15:32 | PDOC ---
History of Present Illness - General Chief Complaint: Cold Symptoms Stated Complaint: COLD Time Seen by Provider: 04/18/17 15:13 History Source: Patient Exam Limitations: No Limitations - History of Present Illness Initial Comments: CHIEF COMPLAINT: 32 y/o afebrile female with no significant PMH c/o dry cough, body aches, fever, chills and runny nose x 3 days. HISTORY OF PRESENT ILLNESS: The patient has been taking tylenol and motrin for her symptoms. She did not get the flu shot this year. Vital signs on arrival are within normal limits. REVIEW OF SYSTEMS: GENERAL/CONSTITUTIONAL: + fever/chills. +body aches No weakness. No weight change. HEAD, EYES, EARS, NOSE AND THROAT: +runny nose. No ear pain or discharge. No sore throat. CARDIOVASCULAR: No chest pain or shortness of breath. RESPIRATORY: +dry cough. No wheezing or hemoptysis. GASTROINTESTINAL: +abdominal discomfort. No nausea, vomiting,diarrhea. GENITOURINARY: No dysuria, frequency, or change in urination. MUSCULOSKELETAL: No joint or muscle swelling or pain. No neck or back pain. SKIN: No rash or easy bruising. NEUROLOGIC: No headache, vertigo, loss of consciousness, or loss of sensation. PHYSICAL EXAM: GENERAL: The patient is awake, alert, and fully oriented, in no acute distress. SHe is non toxic but ill appearing. HEAD: Normal with no signs of trauma. ENT: Pupils equal, round and reactive to light, extraocular movements intact, sclera anicteric, conjunctiva clear. Nasal congestion. Runny nose. LUNGS: Clear to auscultation bilaterally. Normal excursion. No respiratory distress or use of accessory muscles. CV: RRR, S1/S2, no MRG. Cap refill < 2 sec. ABDOMEN: Soft, non-distended, non-tender even to deep palpation, no hepatomegaly or splenomegaly, no masses. EXTREMITIES: Normal range of motion, no edema. NEUROLOGICAL: Normal speech, normal gait. CN II-XII grossly intact. PSYCH: Normal mood, normal affect. SKIN: Warm, dry, normal turgor, no rashes or lesions noted. Past History - Past Medical History Allergies/Adverse Reactions: Allergies Allergy/AdvReac Type Severity Reaction Status Date / Time No Known Allergies Allergy Verified 11/23/16 00:39 Home Medications: Ambulatory Orders Acetaminophen [Tylenol] 650 mg PO ASDIR 04/18/17 Ibuprofen [Motrin -] 400 mg PO QID 04/18/17 Anemia: Yes (b12) Asthma: No Cancer: No Cardiac Disorders: No CVA: No COPD: No CHF: No Dementia: No Diabetes: No GI Disorders: Yes (gallstone) Disorders: No HTN: No Hypercholesterolemia: No Liver Disease: No Psychiatric Problems: Yes (ANXIETY) Seizures: No Thyroid Disease: No - Surgical History Abdominal Surgery: No Appendectomy: No Cardiac Surgery: No Cholecystectomy: Yes Lung Surgery: No Neurologic Surgery: No Orthopedic Surgery: No - Reproductive History Cervical CA: No Dysfunctional Uterine Bleeding: No Ectopic : No Endometrial CA: No Therapeutic (s) & number: No Tubal Ligation: Yes - Immunization History Immunization Up to Date: Yes - Suicide/Smoking/Psychosocial Hx Smoking Status: Yes Smoking History: Current some day smoker Have you smoked in the past 12 months: No Number of Cigarettes Smoked Daily: 3 Cigars Per Day: 0 Information on smoking cessation initiated: Yes 'Breaking Loose' booklet given: 08/22/16 Hx Alcohol Use: No Drug/Substance Use Hx: Yes (occassionally) Substance Use Type: None Hx Substance Use Treatment: No *Physical Exam - Vital Signs Last Vital Signs Temp Pulse Resp BP Pulse Ox 98.3 F 82 16 162/82 99 04/18/17 14:32 04/18/17 14:32 04/18/17 14:32 04/18/17 14:32 04/18/17 14:32 Medical Decision Making - Medical Decision Making A/P: 32 y/o female who most likely has the flu. Outside window for tamiflu. Encouraged her to continue with tylenol and motrin as she is doing, plenty of fluids and rest. She is also using albuterol inhaler every 4 hours which I suggested she continue if needed. Pt instructed to return to the ER with any worsening or concerning symptoms. The patient verbalizes understanding of all instructions, has no further questions and is awaiting discharge. *DC/Admit/Observation/Transfer Diagnosis at time of Disposition: Influenza - Discharge Dispostion Disposition: HOME Condition at time of disposition: Good - Referrals - Patient Instructions Printed Discharge Instructions: DI for Influenza -- Adult Additional Instructions: Discharge Instructions: -You have the flu -Continue taking tylenol and motrin for fever -Drink plenty of fluids -Get lots of rest -Return to the ER with any worsening or concerning symptoms - Post Discharge Activity
== END 2017-04-18 15:44 | disposition home or self-care (01) ==
LOC: JERFT 14:16
DX: J11.1 Influenza due to unidentified influenza virus with other respiratory manifestations (principal); F41.9 Anxiety disorder, unspecified
CPT/HCPCS: 99281-25

== ENCOUNTER 2017-07-02 08:44 | Emergency (ER) | payer OTHER ==
[2017-07-02 09:00] VITALS: BP 125/73; PULSE 71; TEMP 98; BMI 45.7
[2017-07-02] MEDS ORDERED: PANTOPRAZOLE 40 MG TABLET (FP) PO ONE (10:01)
[2017-07-02] MEDS ORDERED: KETOROLAC TROMETHAMINE 60 MG/2 ML VIAL IM ONE (10:01)
[2017-07-02] MEDS ORDERED: KETOROLAC TROMETHAMINE 60 MG/2 ML VIAL ONE (10:13)
[2017-07-02] MEDS ORDERED: PANTOPRAZOLE 40 MG TABLET (FP) ONE (10:17)
[2017-07-02 10:39] LABS: URINE APPEARANCE CLEAR; URINE BILIRUBIN NEGATIVE (<2.0 mg/dL); URINE BLOOD NEGATIVE (NEGATIVE); URINE COLOR STRAW; URINE GLUCOSE (UA) NEGATIVE (NEGATIVE); URINE KETONE NEGATIVE (NEGATIVE); URINE LEUK ESTERASE NEGATIVE (NEGATIVE); URINE NITRITE NEGATIVE (NEGATIVE); URINE PROTEIN NEGATIVE (NEGATIVE); URINE UROBILINOGEN NEGATIVE mg/dL (0.2-1.0)
--- NOTE | 2017-07-02 11:27 | PDOC ---
History of Present Illness - General Chief Complaint: Chest Pain Stated Complaint: CHEST PRESSURE Time Seen by Provider: 07/02/17 09:38 History Source: Patient Exam Limitations: No Limitations - History of Present Illness Initial Comments: 07/02/17 11:25 Patient is a 32-year-old female with history of gallbladder removal and reflux esophagitis. Patient presents today with midsternal reproducible chest pain. Patient reports history of the same was seen by GI started on medication (Name unknown) reports she felt better and stopped the medication. Has an appointment on July [address] Ruiz and could not obtain an earlier appointment. Pain to chest wall when palpating worse when she lays down and after eating has been monitoring her diet. Has not attempted to take any medication at this time describes pain as burning and intermittent stabbing nonradiating. No fever, no nausea vomiting or diarrhea. Past Medical History: Denies. Allergies: No known allergies Medications: None Family History: Non-contributory Social History: Denies smoking, alcohol use, or IVDU Review of Systems GENERAL/CONSTITUTIONAL: No fever or chills. No weakness. No weight change. HEAD, EYES, EARS, NOSE AND THROAT: No change in vision. No ear pain or discharge. No sore throat. CARDIOVASCULAR: No chest pain or shortness of breath. Midsternal chest pain RESPIRATORY: No cough, wheezing, or hemoptysis. GASTROINTESTINAL: No nausea, vomiting, diarrhea or constipation. No rectal bleeding. + Reflux GENITOURINARY: No dysuria, frequency, or change in urination. MUSCULOSKELETAL: No joint or muscle swelling or pain. No neck or back pain. SKIN : No rash or easy bruising. NEUROLOGIC: No headache, vertigo, loss of consciousness, or loss of sensation. PSYCHIATRIC: No depression or anxiety. ENDOCRINE: No increased thirst. No abnormal weight change. HEMATOLOGIC/LYMPHATIC: No anemia, easy bleeding, or history of blood clots. ALLERGIC/IMMUNOLOGIC: No hives or skin allergy. No latex allergy. Physical Exam: GENERAL: The patient is awake, alert, and fully oriented, in no acute distress. HEAD: Normal with no signs of trauma. EYES: Pupils equal, round and reactive to light, extraocular movements intact, sclera anicteric, conjunctiva clear. ENT: Ears normal, nares patent, oropharynx clear without exudates. Moist mucous membranes. No uvula deviation NECK: Normal range of motion, supple without lymphadenopathy, JVD, or masses. LUNGS: Breath sounds equal, clear to auscultation bilaterally. No wheezes, and no crackles. Chest pain on palpation to the sternal area. HEART: Regular rate and rhythm, normal S1 and S2 without murmur, rub or gallop. ABDOMEN: Soft, nontender, normoactive bowel sounds. No guarding, no rebound. No masses. No bruising or abrasions RECTAL : Guaiac negative, normal rectal tone. MUSCULOSKELETAL: Normal range of motion, no edema. No clubbing or cyanosis. No cords, erythema, or tenderness. No CVA Tenderness with fist. NEUROLOGICAL: Cranial nerves II through XII grossly intact. Normal speech, normal gait. PSYCH: Normal mood, normal affect. SKIN: Warm, Dry, normal turgor, no rashes or lesions noted. 07/02/17 11:39 Past History - Past Medical History Allergies/Adverse Reactions: Allergies Allergy/AdvReac Type Severity Reaction Status Date / Time No Known Allergies Allergy Verified 07/02/17 08:56 Home Medications: Ambulatory Orders Pantoprazole Sodium [Protonix -] 40 mg PO DAILY #14 tablet.ec 07/02/17 Anemia: Yes (b12) Asthma: No Cancer: No Cardiac Disorders: No CVA: No COPD: No CHF: No DVT: No Dementia: No Diabetes: No GI Disorders: Yes (gallstone) Disorders: No HTN: No Hypercholesterolemia: No Liver Disease: No Psychiatric Problems: Yes (ANXIETY) Seizures: No Thyroid Disease: No - Surgical History Abdominal Surgery: No Appendectomy: No Cardiac Surgery: No Cholecystectomy: Yes Lung Surgery: No Neurologic Surgery: No Orthopedic Surgery: No - Reproductive History Cervical CA: No Dysfunctional Uterine Bleeding: No Ectopic : No Endometrial CA: No Therapeutic (s) & number: No Tubal Ligation: Yes - Immunization History Immunization Up to Date: Yes - Suicide/Smoking/Psychosocial Hx Smoking Status: Yes Smoking History: Current some day smoker Have you smoked in the past 12 months: No Number of Cigarettes Smoked Daily: 3 Cigars Per Day: 0 Information on smoking cessation initiated: No 'Breaking Loose' booklet given: 08/22/16 Hx Alcohol Use: No Drug/Substance Use Hx: Yes (occassionally) Substance Use Type: None Hx Substance Use Treatment: No Abd/GI Specific PMHX - Complaint Specific PMHX Colitis: No Diverticulitis: No Gall Bladder Disease: No GERD: Yes Hepatitis: No Irritable Bowel Synd (IBS): No Pancreatitis: No GI Ulcer Disease: No *Physical Exam - Vital Signs Last Vital Signs Temp Pulse Resp BP Pulse Ox 98.0 F 71 18 125/73 100 07/02/17 08:56 07/02/17 08:56 07/02/17 08:56 07/02/17 08:56 07/02/17 08:56 ED Treatment Course - ADDITIONAL ORDERS Additional order review: Laboratory Results 07/02/17 10:19 Urine Color Straw Urine Appearance Clear Urine pH 5.0 Ur Specific [place] 1.013 Urine Protein Negative Urine Glucose (UA) Negative Urine Ketones Negative Urine Blood Negative Urine Nitrite Negative Urine Bilirubin Negative Urine Urobilinogen Negative Ur Leukocyte Esterase Negative - Medications Given in the ED: ED Medications Discontinued Medications Generic Name Dose Route Start Last Admin Trade Name Freq PRN Reason Stop Dose Admin Ketorolac Tromethamine 60 mg 07/02/17 10:01 07/02/17 10:19 Toradol Injection - IM 07/02/17 10:02 60 mg ONCE ONE Administration Pantoprazole Sodium 40 mg 07/02/17 10:01 07/02/17 10:19 Protonix - PO 07/02/17 10:02 40 mg ONCE ONE Administration Medical Decision Making - Medical Decision Making 07/02/17 11:43 A/P: Patient here for reproducible chest pain, EKG was performed in triage normal sinus rhythm with sinus arrhythmia otherwise unremarkable. Ventricular rate is 69. Within R axis of 55. During examination patient reports pain worsen when she lays down I will give Protonix for reflux and Toradol for musculoskeletal pain. Because patient is feeling internal pain she has been rubbing her chest over the area of the sternum which may be causing the musculoskeletal pain. After Protonix and Toradol patient reports relief of symptoms. I have called Dr. Moss and have obtained an appointment on the . We'll discharge patient on a 14 day course of Protonix, strict follow-up with gastroenterology *DC/Admit/Observation/Transfer Diagnosis at time of Disposition: GERD with esophagitis - Discharge Dispostion Disposition: HOME Condition at time of disposition: Stable Admit: No - Prescriptions Prescriptions: Pantoprazole Sodium [Protonix -] 40 mg PO DAILY #14 tablet.ec - Referrals Referrals: Din,Bridgett, MD [Primary Care Provider] - Chuy Ruiz MD [Staff Physician] - (07/04/17 at 11:45 am. ) - Patient Instructions Additional Instructions: No peppermint, no mint, no caffeine, no chocolate. Follow-up with Dr. Ruiz as indicated Increase fluid intake No fried foods, no cystic foods, no acidic foods No milk Take medication as prescribed for 14 days - Post Discharge Activity Forms/Work/School Notes: Back to Work
--- NOTE | 2017-07-02 23:41 | EKG ---
Test Reason : Blood Pressure : / mmHG Vent. Rate : 069 BPM Atrial Rate : 069 BPM P-R Int : 166 ms QRS Dur : 096 ms QT Int : 386 ms P-R-T Axes : 044 055 043 degrees QTc Int : 413 ms NORMAL SINUS RHYTHM WITH SINUS ARRHYTHMIA CANNOT RULE OUT ANTERIOR INFARCT , AGE UNDETERMINED ABNORMAL ECG WHEN COMPARED WITH ECG OF 15-JUL-2016 17:22, NO SIGNIFICANT CHANGE WAS FOUND Confirmed by NERI THOMAS, ANDIE ([id number]) on 07/02/2017 11:41:24 PM Referred By: Confirmed By:ANDIE HE MD
== END 2017-07-02 11:38 | disposition home or self-care (01) ==
LOC: JERFT 08:44 → JER 08:44 → JERFT 11:38
PROC: 3E0233Z Introduction of Anti-inflammatory into Muscle, Percutaneous Approach (ICD-10-PCS; principal; 2017-07-02)
DX: K21.0 Gastro-esophageal reflux disease with esophagitis (principal); F17.210 Nicotine dependence, cigarettes, uncomplicated; F41.9 Anxiety disorder, unspecified
CPT/HCPCS: 81003; 87086; 93005; 93010; 96372; 99281-25

== ENCOUNTER 2017-10-20 12:46 | Emergency (ER) | payer OTHER ==
[2017-10-20 12:56] VITALS: BP 129/74; PULSE 80; TEMP 98.1; BMI 46.0
--- NOTE | 2017-10-20 13:10 | PDOC ---
History of Present Illness - General Chief Complaint: Pain Stated Complaint: NECK/BACK PAIN - History of Present Illness Initial Comments: 32-year-old female presents for evaluation of left-sided neck pain with radicular symptoms down the left arm for the last 2 days. Without precipitating traumatic event. No loss of bowel or bladder function 10/20/17 13:08 Past History - Past Medical History Allergies/Adverse Reactions: Allergies Allergy/AdvReac Type Severity Reaction Status Date / Time No Known Allergies Allergy Verified 07/02/17 08:56 Home Medications: Ambulatory Orders Pantoprazole Sodium [Protonix -] 40 mg PO DAILY #14 tablet.ec 07/02/17 Cyclobenzaprine HCl [Flexeril 10 mg] 10 mg PO HS PRN #10 tablet 10/20/17 Methylprednisolone [Medrol Dose Rajan] 4 mg PO ASDIR #21 tablet 10/20/17 Anemia: Yes (b12) Asthma: No Cancer: No Cardiac Disorders: No CVA: No COPD: No CHF: No DVT: No Dementia: No Diabetes: No GI Disorders: Yes (gallstone) Disorders: No HTN: No Hypercholesterolemia: No Liver Disease: No Psychiatric Problems: Yes (ANXIETY) Seizures: No Thyroid Disease: No - Surgical History Abdominal Surgery: No Appendectomy: No Cardiac Surgery: No Cholecystectomy: Yes GI Surgery: Yes (Cholecystectomy,) Lung Surgery: No Neurologic Surgery: No Orthopedic Surgery: No - Reproductive History Cervical CA: No Dysfunctional Uterine Bleeding: No Ectopic : No Endometrial CA: No Therapeutic (s) & number: No Tubal Ligation: Yes - Immunization History Immunization Up to Date: Yes - Suicide/Smoking/Psychosocial Hx Smoking Status: Yes Smoking History: Former smoker Have you smoked in the past 12 months: No Number of Cigarettes Smoked Daily: 0 Cigars Per Day: 0 Information on smoking cessation initiated: No 'Breaking Loose' booklet given: 08/22/16 Hx Alcohol Use: No Drug/Substance Use Hx: No Substance Use Type: Alcohol Hx Substance Use Treatment: No Review of Systems - Review of Systems Musculoskeletal: Yes: Neck Pain All Other Systems: Reviewed and Negative *Physical Exam - Vital Signs Last Vital Signs Temp Pulse Resp BP Pulse Ox 98.1 F 80 20 129/74 97 10/20/17 12:51 10/20/17 12:51 10/20/17 12:51 10/20/17 12:51 10/20/17 12:51 - Physical Exam Comments: Cervical spine skin color and temperature are normal range of motion is decreased. She has mild to moderate left-sided trapezium spasm along with mild paracervical musculature spasm on the left. Mildly positive Spurling maneuver. She has 5 out of 5 strength in bilateral upper extremities. There are no gross sensorimotor deficits. She's neurovascularly intact. 10/20/17 13:08 Medical Decision Making - Medical Decision Making Cervical radiculopathy I will treat her with a Medrol Dosepak and a muscle relaxer. Her past surgical history is significant for bilateral tubal ligation no chance of . I will have her follow-up with spine surgery. 10/20/17 13:09 *DC/Admit/Observation/Transfer Diagnosis at time of Disposition: Cervical radicular pain - Discharge Dispostion Disposition: HOME Condition at time of disposition: Stable Decision to Admit order: No - Prescriptions Prescriptions: Cyclobenzaprine HCl [Flexeril 10 mg] 10 mg PO HS PRN #10 tablet PRN Reason: Muscle Spasms Methylprednisolone [Medrol Dose Rajan] 4 mg PO ASDIR #21 tablet - Referrals Referrals: Nolberto Welch MD [Staff Physician] - - Patient Instructions Printed Discharge Instructions: DI for Cervical Radiculopathy Additional Instructions: Return to the emergency room should symptoms worsen or go unresolved. Please take the steroid pack as directed. The muscle relaxer will make you sleepy would be one tablet before bedtime. Follow-up with spine surgery in 1-2 days for further evaluation and treatment options. Again return to the emergency room should symptoms worsen or go unresolved. - Post Discharge Activity
== END 2017-10-20 14:01 | disposition home or self-care (01) ==
LOC: JERFT 12:46
DX: M54.12 Radiculopathy, cervical region (principal); D51.9 Vitamin B12 deficiency anemia, unspecified; F41.9 Anxiety disorder, unspecified
CPT/HCPCS: 99281-25

== ENCOUNTER 2018-05-07 08:47 | Emergency (ER) | payer OTHER ==
[2018-05-07 09:09] VITALS: PULSE 68; TEMP 98.2; BMI 45.7
--- NOTE | 2018-05-07 09:33 | PDOC ---
History of Present Illness - General Chief Complaint: Pain Stated Complaint: LOW ABD PAIN Time Seen by Provider: 05/07/18 09:11 History Source: Patient Exam Limitations: No Limitations - History of Present Illness Travel History: No Initial Comments: 05/07/18 09:31 33y F , hx of kidney stones, gall stnoes sp cholecystecomty, ovarian cysts presents with complaint presents with 2 days of pain in the LLQ radiating down to the groin that is 8/10 and has been getting worse. Pain is a dull squeezing pain, that originaly was intermittent, lasting for minutes, associated with nausea without vomiting, constipation,d iarrhea, hematuria, dysuria. She does endorse some vaginal spotting. LMP approx 2 weeks ago, but has been intermittently spotting since. Taking tylenol without significant improvement. Endorses subjective fever at night. Family hx: noncontributory Soc: does not smoke PMD Dr. Valencia Past History - Past Medical History Allergies/Adverse Reactions: Allergies Allergy/AdvReac Type Severity Reaction Status Date / Time No Known Allergies Allergy Verified 05/07/18 09:06 Home Medications: Ambulatory Orders NK [No Known Home Medication] 05/07/18 Anemia: Yes (b12) Asthma: No Cancer: No Cardiac Disorders: No CVA: No COPD: No CHF: No DVT: No Dementia: No Diabetes: No GI Disorders: Yes (gallstone) Disorders: No HTN: No Hypercholesterolemia: No Liver Disease: No Psychiatric Problems: Yes (ANXIETY) Seizures: No Thyroid Disease: No - Surgical History Abdominal Surgery: No Appendectomy: No Cardiac Surgery: No Cholecystectomy: Yes GI Surgery: Yes (Cholecystectomy,) Lung Surgery: No Neurologic Surgery: No Orthopedic Surgery: No - Reproductive History Is Patient Now?: No Cervical CA: No Dysfunctional Uterine Bleeding: No Ectopic : No Endometrial CA: No Therapeutic (s) & number: No Tubal Ligation: Yes - Immunization History Immunization Up to Date: Yes - Suicide/Smoking/Psychosocial Hx Smoking Status: Yes Smoking History: Never smoked Have you smoked in the past 12 months: No Number of Cigarettes Smoked Daily: 0 Cigars Per Day: 0 Information on smoking cessation initiated: No 'Breaking Loose' booklet given: 08/22/16 Hx Alcohol Use: No Drug/Substance Use Hx: No Substance Use Type: Alcohol Hx Substance Use Treatment: No Abd/GI Specific PMHX - Complaint Specific PMHX Colitis: No Diverticulitis: No Gall Bladder Disease: No GERD: Yes Hepatitis: No Irritable Bowel Synd (IBS): No Pancreatitis: No GI Ulcer Disease: No Review of Systems - Review of Systems Able to Perform ROS?: Yes Comments:: 05/07/18 09:58 Constitutional - no reported Fever, Chills, HEENT: no reported vision changes, sore throat Respiratory: no reported cough, sob, hemoptysis Cardiac: no reported chest pain, palpitations, light headedness, leg swelling Abd/GI: + abd pain, nausea, no reported vomiting, blood per rectum, melena, diarrhea : +vag spotting no reported dysuria, frequency, discharge Musculskelatal - no reported back pain, joint swelling skin - no reported bruising, erythema, rash neurological: no reported headache, numbness, focal weakness, tingling, ataxia, hematologic: no reported easy bruising, easy bleeding *Physical Exam - Vital Signs Last Vital Signs Temp Pulse Resp BP Pulse Ox 98.2 F 68 16 130/67 100 05/07/18 09:06 05/07/18 09:06 05/07/18 09:06 05/07/18 09:06 05/07/18 09:06 - Physical Exam Comments: 05/07/18 10:00 GENERAL: The patient is awake, alert, and fully oriented, Nontoxic - in no acute distress. HEAD: Normocephalic, atraumatic. EYES: extraocular movements intact, sclera anicteric, conjunctiva clear. ENT: Normal voice, Moist mucous membranes. NECK: Normal range of motion, supple LUNGS: Breath sounds equal, clear to auscultation bilaterally. No wheezes, no rhonchi, no rales. HEART: Regular rate and rhythm, normal S1 and S2 without murmur, rub or gallop. ABDOMEN: Soft,mild RLQ ttp EXTREMITIES: Normal range of motion, no edema. No clubbing or cyanosis. No cords, erythema, or tenderness. NEUROLOGICAL: No facial assymetry, Normal speech, PSYCH: Normal mood, normal affect. SKIN: Warm, Dry, normal turgor, PELVIC: vag spotting from cervix, no lesions, rashes, no other dicharge Moderate Sedation - Procedure Monitoring Vital Signs: Procedure Monitoring Vital Signs Temperature 98.2 F 05/07/18 09:06 Pulse Rate 68 05/07/18 09:06 Respiratory Rate 16 05/07/18 09:06 Blood Pressure 130/67 05/07/18 09:06 O2 Sat by Pulse Oximetry (%) 100 05/07/18 09:06 ED Treatment Course - LABORATORY CBC & Chemistry Diagram: 05/07/18 09:50 05/07/18 09:50 Medical Decision Making - Medical Decision Making 05/07/18 10:00 ddx includes: kidney stones, uti, ovarian cysts, torsion, appendicitis will start off with cbc, cmp, ua tylenol, zofran for symptomatic releif will screen for GC will likely obtain 05/07/18 12:26 labs negative will obtain US 05/07/18 15:54 The patient's ultrasound was negative the patient still having moderate right lower quadrant pain such CT was obtained. CT is negative for acute pathology with a normal appendix. We'll discharge the patient with outpatient management Return precautions were discussed I discussed the physical exam findings, ancillary test results and final diagnoses with the patient. I answered all of the patient's questions. The patient was satisfied with the care received and felt comfortable with the discharge plan and treatment plan. The patient will call their primary care physician within 24 hours to arrange follow-up and will return to the Emergency Department with any new, persistent or worsening symptoms. *DC/Admit/Observation/Transfer Diagnosis at time of Disposition: Abdominal pain Qualifiers: Abdominal location: right lower quadrant Qualified Code(s): R10.31 - Right lower quadrant pain - Discharge Dispostion Disposition: HOME Condition at time of disposition: Improved Decision to Admit order: No - Referrals Referrals: Hope Quispe NP [Primary Care Provider] - - Patient Instructions Printed Discharge Instructions: DI for Abdominal Pain-Adult Additional Instructions: Return to the emergency department immediately with ANY new, persistent or worsening symptoms including worsening abdominal pain, fevers, inability to tolerate oral intake, chest pain, shortness of breath or any other concerns. Stay well hydrated. Your CAT scan and ultrasounds are included, please review thiese with your doctor. You MUST call and follow up with your doctor in 3-4 days. Your emergency department visit is not complete without a followup with your doctor for reevaluation. Please make sure your doctor reviews the results of your emergency evaluation. Print Language: DANISH - Post Discharge Activity
[2018-05-07] MEDS ORDERED: ACETAMINOPHEN 325 MG TABLET (FP) PO ONE (09:49)
[2018-05-07] MEDS ORDERED: ONDANSETRON 4 MG/2 ML VIAL IVPB ONE (09:49)
[2018-05-07 09:50] LABS: URINE APPEARANCE CLEAR; URINE BILIRUBIN NEGATIVE (<2.0 mg/dL); URINE COLOR YELLOW; URINE GLUCOSE (UA) NEGATIVE (NEGATIVE); URINE KETONE NEGATIVE (NEGATIVE); URINE LEUK ESTERASE NEGATIVE (NEGATIVE); URINE NITRITE NEGATIVE (NEGATIVE); URINE PROTEIN NEGATIVE (NEGATIVE); URINE UROBILINOGEN NEGATIVE mg/dL (0.2-1.0)
[2018-05-07] MEDS ORDERED: ONDANSETRON 4 MG/2 ML VIAL ONE (09:55)
[2018-05-07] MEDS ORDERED: ACETAMINOPHEN 325 MG TABLET (FP) ONE (09:55)
[2018-05-07 10:04] LABS: BASO % 0.7 % (0-2.0); EOS % 2.9 % (0-4.5); HEMATOCRIT 34.3 % (32.4-45.2); HEMOGLOBIN 11.6 GM/dL (10.7-15.3); LYMPH % 22.3 % (8-40); MCH 28.6 pg (25.7-33.7); MCHC 33.8 g/dl (32.0-36.0); MEAN CELL VOLUME 84.5 fl (80-96); MEAN PLT VOLUME 7.7 fl (7.5-11.1); MONO % 7.6 % (3.8-10.2); NEUT % 66.5 % (42.8-82.8); PLATELET COUNT 286 K/MM3 (134-434); RBC 4.05 M/mm3 (3.60-5.2); RDW 13.9 % (11.6-15.6); WHITE BLOOD COUNT 8.3 K/mm3 (4.0-10.0)
[2018-05-07 10:48] LABS: ALBUMIN 3.4 g/dl (3.4-5.0); ALK PHOS 85 U/L (45-117); ANION GAP 5 MMOL/L (8-16); BILIRUBIN,TOTAL 0.6 mg/dL (0.2-1); BLOOD UREA NITROGEN 8 mg/dL (7-18); CALCIUM 8.4 mg/dL (8.5-10.1); CHLORIDE 107 mmol/L (98-107); CO2 28 mmol/L (21-32); CREATININE 0.6 mg/dL (0.55-1.3); GLUCOSE,RANDOM 92 mg/dL (74-106); POTASSIUM 4.9 mmol/L (3.5-5.1); SGOT/AST 28 U/L (15-37); SGPT/ALT 28 U/L (13-61); SODIUM 140 mmol/L (136-145); TOT PROT 6.7 g/dl (6.4-8.2)
[2018-05-07] MEDS ORDERED: morphine CARPU-JECT 4 MG/1 ML DISP.SYRIN IVPUSH ONE (12:26)
[2018-05-07] MEDS ORDERED: MORPHINE SULFATE 2 MG/ML VIAL ONE (12:44)
[2018-05-07] MEDS ORDERED: morphine CARPU-JECT 2 MG/1 ML DISP.SYRIN IVPUSH ONE (12:44)
[2018-05-07 13:07] VITALS: BP 111/69
[2018-05-07] MEDS ORDERED: SODIUM CHLORIDE 1,000 ML IV ONE (15:12)
== END 2018-05-07 16:22 | disposition home or self-care (01) ==
LOC: JER 08:47
PROC: 3E033NZ Introduction of Analgesics, Hypnotics, Sedatives into Peripheral Vein, Percutaneous Approach (ICD-10-PCS; principal; 2018-05-07)
PROC: 3E033GC Introduction of Other Therapeutic Substance into Peripheral Vein, Percutaneous Approach (ICD-10-PCS; 2018-05-07)
PROC: 3E033GC Introduction of Other Therapeutic Substance into Peripheral Vein, Percutaneous Approach (ICD-10-PCS; 2018-05-07)
DX: R10.31 Right lower quadrant pain (principal); D50.9 Iron deficiency anemia, unspecified; Z87.442 Personal history of urinary calculi; Z90.49 Acquired absence of other specified parts of digestive tract; N83.201 Unspecified ovarian cyst, right side; N83.202 Unspecified ovarian cyst, left side
CPT/HCPCS: 36415; 74177-TC; 76830-TC; 80053; 81003; 84703; 85025; 87491; 87591; 99283-25; J7030

== ENCOUNTER 2018-10-09 16:40 | Emergency (ER) | payer OTHER ==
--- NOTE | 2018-10-09 16:54 | PDOC ---
Rapid Medical Evaluation Time Seen by Provider: 10/09/18 16:51 Medical Evaluation: Allergies Allergy/AdvReac Type Severity Reaction Status Date / Time No Known Allergies Allergy Verified 05/07/18 09:06 10/09/18 16:52 I have performed a brief in-person evaluation of this patient. The patient presents with a chief complaint of: CP since last night, worse today and worsens w/ movement. Now feels dizzy. S/p cholecystectomy remotely, "occasionally smokes" cigarettes Pertinent physical exam findings:Well nohelia and stable w/ clear chest/lungs I have ordered the following:labs The patient will proceed to the ED for further evaluation. Discharge Disposition - Diagnosis Epigastric abdominal pain - Referrals - Patient Instructions - Post Discharge Activity
[2018-10-09 16:55] VITALS: BP 144/67; PULSE 76; TEMP 98.1; BMI 42.5
--- NOTE | 2018-10-09 18:08 | PDOC ---
History of Present Illness - General Chief Complaint: Chest Pain Stated Complaint: CHEST PAIN/NAUSEA Time Seen by Provider: 10/09/18 16:51 - History of Present Illness Initial Comments: 10/09/18 18:05 CHIEF COMPLAINT: Chest pain HISTORY OF PRESENT ILLNESS: 33 y F with hx of acid reflux presents to ED with chest pain since last night. Patient reports that she felt like couldn't breathe last night when she was lying down, and that she feels weak today. Patient describes the pain as a "pinch that comes and goes." Patient states she came to the ED today because she "got weak and dizzy" and "movement makes it irritate me more." Patient states that she normally eats rice, beans, meat, avocado, coffee. Coffee in the morning. Patient states this pain is worse than her acid reflux pain. No recent travel or sick contacts. PAST MEDICAL HISTORY: acid reflux FAMILY HISTORY: Denies SOCIAL HISTORY: Denies tobacco, alcohol, illicit drug use. SURGICAL HISTORY: cholecystectomy, ALLERGIES: No known drug allergies REVIEW OF SYSTEMS General/Constitutional: Weakness x 1 day. Denies fever or chills. HEENT: Denies change in vision. Denies ear pain or discharge. Denies sore throat. Cardiovascular: Chest x 1 day. Respiratory: Denies cough, wheezing, or hemoptysis. Gastrointestinal: Denies nausea, vomiting, diarrhea or constipation. Denies rectal bleeding. Genitourinary: Denies dysuria, frequency, or change in urination. Musculoskeletal: Denies joint or muscle swelling or pain. Denies neck or back pain. Skin and breasts: Denies rash or easy bruising. Neurologic: Denies headache, vertigo, loss of consciousness, or loss of sensation. PHYSICAL EXAM General Appearance: Well-appearing, appropriately dressed. No apparent distress , no intoxication. HEENT: EOMI, PERRLA, normal ENT inspection, normal voice, TMs normal, pharynx normal. No conjunctival pallor. No photophobia, scleral icterus. Neck: Supple. Trachea midline. No tenderness, rigidity, carotid bruit, stridor , lymphadenopathy, or thyromegaly. Respiratory/Chest: Lungs CTAB. No shortness of breath, chest tenderness, respiratory distress, accessory muscle use. No crackles, rales, rhonchi, stridor , wheezing, dullness Cardiovascular: RRR. S1, S2. No JVD, murmur, bradycardia, tachycardia. Vascular Pulses: Dorsalis-Pedis (R): 2+, Dorsalis-Pedis (L): 2+ Gastrointestinal/Abdominal: Normal bowel sounds. Abdomen soft, non-distended. No tenderness or rebound tenderness. No organomegaly, pulsatile mass, guarding , hernia, hepatomegaly, splenomegaly. Lymphatic: No adenopathy, tenderness. Musculoskeletal/Extremities: Normal inspection. FROM of all extremities, normal capillary refill. Pelvis Stable. No CVA tenderness. No tenderness to extremities, pedal edema, swelling, erythema or deformity. Integumentary: Appropriate color, dry, warm. 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 Fully oriented, alert. Appropriate mood/affect. Motor strength 5/5. No appreciable EOM palsy, facial droop or sensory deficit. Past History - Past Medical History Allergies/Adverse Reactions: Allergies Allergy/AdvReac Type Severity Reaction Status Date / Time No Known Allergies Allergy Verified 05/07/18 09:06 Home Medications: Ambulatory Orders NK [No Known Home Medication] 05/07/18 Anemia: Yes (b12) Asthma: No Cancer: No Cardiac Disorders: No CVA: No COPD: No CHF: No DVT: No Dementia: No Diabetes: No GI Disorders: Yes (gallstone) Disorders: No HTN: No Hypercholesterolemia: No Liver Disease: No Psychiatric Problems: Yes (ANXIETY) Seizures: No Thyroid Disease: No - Surgical History Abdominal Surgery: No Appendectomy: No Cardiac Surgery: No Cholecystectomy: Yes GI Surgery: Yes (Cholecystectomy,) Lung Surgery: No Neurologic Surgery: No Orthopedic Surgery: No - Reproductive History Cervical CA: No Dysfunctional Uterine Bleeding: No Ectopic : No Endometrial CA: No Therapeutic (s) & number: No Tubal Ligation: Yes - Immunization History Immunization Up to Date: Yes - Suicide/Smoking/Psychosocial Hx Smoking Status: Yes Smoking History: Current some day smoker Have you smoked in the past 12 months: No Number of Cigarettes Smoked Daily: 0 Cigars Per Day: 0 Information on smoking cessation initiated: No 'Breaking Loose' booklet given: 08/22/16 Hx Alcohol Use: No Drug/Substance Use Hx: No Substance Use Type: Alcohol Hx Substance Use Treatment: No Cardiac Specific PMH - Complaint Specific PMHX GERD: Yes Pacemaker: No *Physical Exam - Vital Signs Last Vital Signs Temp Pulse Resp BP Pulse Ox 98.1 F 76 18 144/67 100 10/09/18 16:52 10/09/18 16:52 10/09/18 16:52 10/09/18 16:52 10/09/18 16:52 ED Treatment Course - RADIOLOGY Radiology Studies Ordered: Category Date Time Status CHEST PA & LAT [RAD] Stat Radiology 10/09/18 19:21 Ordered Medical Decision Making - Medical Decision Making 10/09/18 21:49 33 y F with hx of acid reflux presents to ED with chest pain since last night. -ekg -labs -urine ekg done in triage, unremarkable. paitent called multiple times for lab draw and unable to be found. *DC/Admit/Observation/Transfer Diagnosis at time of Disposition: Epigastric abdominal pain - Referrals Referrals: Bridgett Valencia MD [Primary Care Provider] - - Patient Instructions - Post Discharge Activity
--- NOTE | 2018-10-09 19:31 | PDOC ---
*Physical Exam - Vital Signs Last Vital Signs Temp Pulse Resp BP Pulse Ox 98.1 F 76 18 144/67 100 10/09/18 16:52 10/09/18 16:52 10/09/18 16:52 10/09/18 16:52 10/09/18 16:52 Medical Decision Making - Medical Decision Making 10/09/18 19:31 Pt seen by the Advanced Practice Provider under my direct supervision Ancillary studies reviewed I agree with plan as outlined by the Advanced Practice Provider ZORAIDA Martinez *DC/Admit/Observation/Transfer Diagnosis at time of Disposition: Epigastric abdominal pain - Referrals Referrals: Bridgett Valencia MD [Primary Care Provider] - - Patient Instructions - Post Discharge Activity
--- NOTE | 2018-10-11 00:08 | EKG ---
Test Reason : Blood Pressure : / mmHG Vent. Rate : 073 BPM Atrial Rate : 073 BPM P-R Int : 152 ms QRS Dur : 106 ms QT Int : 406 ms P-R-T Axes : 035 065 051 degrees QTc Int : 447 ms NORMAL SINUS RHYTHM INCOMPLETE RIGHT BUNDLE BRANCH BLOCK BORDERLINE ECG WHEN COMPARED WITH ECG OF 02-JUL-2017 08:45, NO SIGNIFICANT CHANGE WAS FOUND Confirmed by AHSAN MYERS MD ([id number]) on 10/11/2018 12:08:14 AM Referred By: Confirmed By:AHSAN MYERS MD
== END 2018-10-09 21:30 | disposition left against medical advice (07) ==
LOC: JER 16:40
DX: R10.13 Epigastric pain (principal)
CPT/HCPCS: 93005; 93010; 99282-25

== ENCOUNTER 2018-10-12 02:16 | Emergency (ER) | payer OTHER ==
[2018-10-12 02:36] VITALS: PULSE 76; TEMP 98.8; BMI 42.5
[2018-10-12] MEDS ORDERED: ONDANSETRON 4 MG/2 ML VIAL IVPUSH ONE (03:35)
[2018-10-12] MEDS ORDERED: ACETAMINOPHEN 1000 MG/100 ML VIAL (NON FORMULARY) IVPB ONE (03:38)
--- NOTE | 2018-10-12 03:41 | PDOC ---
History of Present Illness <Deirdre Torrez - Last Filed: 10/12/18 05:14> - General History Source: Patient Exam Limitations: No Limitations - History of Present Illness Initial Comments: 33 yo F PMH cholecystectomy 2-3 years ago, p/w sunburn, muscle pain and weakness. Said she was by the pool for about 4 hours yesterday, and applied sunscreen. However, she noticed the sunburns as soon as she got home, also developed the muscle pain, 10/10, "feels like it hurts inside me", subjective weakness, chills, and nausea without vomiting. Tried Tylenol and aloe at home, but did not help. Says she has not had symptoms like this before. Denies CP, SOB, constipation/diarrhea, fevers, ESTRELLA, dizziness, lightheadedness. 10/12/18 03:36 <Rachel Tidwell - Last Filed: 10/12/18 05:16> - General Chief Complaint: Sunburn Stated Complaint: SUNBURN Time Seen by Provider: 10/12/18 03:15 Past History <Deirdre Torrez - Last Filed: 10/12/18 05:14> - Past Medical History Anemia: Yes (b12) Asthma: No Cancer: No Cardiac Disorders: No CVA: No COPD: No CHF: No DVT: No Dementia: No Diabetes: No GI Disorders: Yes (gallstone) Disorders: No HTN: No Hypercholesterolemia: No Liver Disease: No Psychiatric Problems: Yes (ANXIETY) Seizures: No Thyroid Disease: No - Surgical History Abdominal Surgery: No Appendectomy: No Cardiac Surgery: No Cholecystectomy: Yes GI Surgery: Yes (Cholecystectomy,) Lung Surgery: No Neurologic Surgery: No Orthopedic Surgery: No - Reproductive History Cervical CA: No Dysfunctional Uterine Bleeding: No Ectopic : No Endometrial CA: No Therapeutic (s) & number: No Tubal Ligation: Yes - Immunization History Immunization Up to Date: Yes - Suicide/Smoking/Psychosocial Hx Smoking Status: Yes Smoking History: Never smoked Have you smoked in the past 12 months: No Number of Cigarettes Smoked Daily: 0 Cigars Per Day: 0 Information on smoking cessation initiated: No 'Breaking Loose' booklet given: 08/22/16 Hx Alcohol Use: No Drug/Substance Use Hx: No Substance Use Type: Alcohol Hx Substance Use Treatment: No <Rachel Tidwell - Last Filed: 10/12/18 05:16> - Past Medical History Allergies/Adverse Reactions: Allergies Allergy/AdvReac Type Severity Reaction Status Date / Time No Known Allergies Allergy Verified 10/12/18 02:37 Home Medications: Ambulatory Orders NK [No Known Home Medication] 05/07/18 Review of Systems - Review of Systems Constitutional: Yes: Chills. No: Fever HEENTM: No: Eye Pain, Blurred Vision, Double Vision, Nose Pain, Tinnitus, Hearing Loss, Difficulty Swallowing Respiratory: No: Cough, Orthopnea, Shortness of Breath Cardiac (ROS): No: Chest Pain, Edema, Irregular Heart Rate, Lightheadedness, Palpitations ABD/GI: Yes: Nausea. No: Constipated, Diarrhea, Vomiting Musculoskeletal: Yes: Muscle Pain, Muscle Weakness Neurological: No: Headache, Numbness, Paresthesia, Pre-Existing Deficit, Seizure , Tingling <Rachel Tidwell - Last Filed: 10/12/18 05:16> *Physical Exam - Vital Signs Last Vital Signs Temp Pulse Resp BP Pulse Ox 98.8 F 76 18 159/89 100 10/12/18 02:16 10/12/18 02:16 10/12/18 02:16 10/12/18 02:16 10/12/18 02:16 <Deirdre Torrez - Last Filed: 10/12/18 05:14> - Vital Signs Last Vital Signs Temp Pulse Resp BP Pulse Ox 98.8 F 76 18 159/89 100 10/12/18 02:16 10/12/18 02:16 10/12/18 02:16 10/12/18 02:16 10/12/18 02:16 - Physical Exam General Appearance: Yes: Nourished, Appropriately Dressed, Moderate Distress HEENT: positive: EOMI, ARLETH, Normal ENT Inspection, Normal Voice, Symmetrical, Pharynx Normal Neck: positive: Trachea midline, Normal Thyroid, Supple. negative: Tender Respiratory/Chest: positive: Lungs Clear, Normal Breath Sounds, Respiratory Distress. negative: Accessory Muscle Use Cardiovascular: positive: Regular Rhythm, Regular Rate Gastrointestinal/Abdominal: positive: Normal Bowel Sounds, Flat, Soft Musculoskeletal: negative: Normal Inspection (pain on movement of extremities), CVA Tenderness Extremity: positive: Normal Capillary Refill, Normal Inspection, Normal Range of Motion Integumentary: positive: Erythema (both shoulders, both scapular skin regions, chest. Mild ttp) Neurologic: positive: cruise staff member II-XII NML intact, Fully Oriented, Alert, Normal Mood/ Affect, Normal Response, Motor Strength 5/5 (limited by effort and pain, but 5/5 ). negative: Sensory Deficit <Rachel Tidwell - Last Filed: 10/12/18 05:16> ED Treatment Course - LABORATORY CBC & Chemistry Diagram: 10/12/18 04:13 10/12/18 04:13 - ADDITIONAL ORDERS Additional order review: Laboratory Results 10/12/18 10/12/18 04:13 04:13 Sodium 140 Potassium 4.5 Chloride 106 Carbon Dioxide 29 Anion Gap 6 L BUN 9.0 Creatinine 0.7 Est GFR (CKD-EPI)AfAm 132.87 Est GFR (CKD-EPI)NonAf 114.64 Random Glucose 109 H Calcium 8.9 Total Bilirubin 0.5 AST 20 ALT 23 Alkaline Phosphatase 87 Creatine Kinase 113 Total Protein 7.1 Albumin 3.7 10/12/18 04:13 RBC 4.26 MCV 84.7 MCHC 33.1 RDW 14.7 MPV 8.3 Neutrophils % 62.5 Lymphocytes % 27.5 D Monocytes % 6.5 Eosinophils % 2.5 Basophils % 1.0 - Medications Given in the ED: ED Medications Discontinued Medications Generic Name Dose Route Start Last Admin Trade Name Randall PRN Reason Stop Dose Admin Acetaminophen 1,000 mg 10/12/18 03:38 10/12/18 04:15 Ofirmev Injection - IVPB 10/12/18 03:39 1,000 mg ONCE ONE Administration Ketorolac Tromethamine 30 mg 10/12/18 04:35 10/12/18 04:51 Toradol Injection - IVPUSH 10/12/18 04:36 30 mg ONCE ONE Administration Ondansetron HCl 4 mg 10/12/18 03:35 10/12/18 04:15 Zofran Injection IVPUSH 10/12/18 03:36 4 mg NOW ONE Administration Silver Sulfadiazine 1 applic 10/12/18 03:45 10/12/18 04:23 Silvadene - TP 10/12/18 03:46 1 applic ONCE ONE Administration <Deirdre Torrez - Last Filed: 10/12/18 05:14> - LABORATORY CBC & Chemistry Diagram: 10/12/18 04:13 10/12/18 04:13 <Rachel Tidwell - Last Filed: 10/12/18 05:16> Medical Decision Making - Medical Decision Making Will get CPK, CBC, CMP. Give IV Ofirmev, Zofran, 1L LR to rehydrate. Also get silvedine for topical pain management. 10/12/18 03:43 WBC 10.7 10/12/18 04:27 Nausea resolved. Patient still in pain. Giving Toradol, applying silvadine. 10/12/18 04:40 CK 113, wnl. Pain improved. 10/12/18 05:15 <Rachel Tidwell - Last Filed: 10/12/18 05:16> *DC/Admit/Observation/Transfer - Discharge Dispostion Decision to Admit order: No <Deirdre Torrez - Last Filed: 10/12/18 05:14> <Rachel Tidwell - Last Filed: 10/12/18 05:16> Diagnosis at time of Disposition: Sunburn - Discharge Dispostion Disposition: HOME Condition at time of disposition: Improved - Referrals Referrals: Bridgett Valencia MD [Primary Care Provider] - - Patient Instructions Printed Discharge Instructions: How to Avoid Sunburn, DI for Sunburn - Post Discharge Activity Forms/Work/School Notes: Back to Work
[2018-10-12] MEDS ORDERED: SILVER SULFADIAZINE 1% TOP CREAM 50 GM JAR TP ONE ×2 (03:45→04:18)
[2018-10-12] MEDS ORDERED: LACTATED RINGERS SOLUTION 1,000 ML/1,000 ML INFUS.BAG IV SCH (03:45)
[2018-10-12] MEDS ORDERED: ACETAMINOPHEN INJECTION 100 ML IVPB ONE (03:48)
[2018-10-12] MEDS ORDERED: ONDANSETRON 4 MG/2 ML VIAL ONE (03:48)
--- NOTE | 2018-10-12 03:48 | PDOC ---
Attending Attestation - Resident Resident Name: Rachel Tidwell - ED Attending Attestation I have performed the following: I have examined & evaluated the patient, The case was reviewed & discussed with the resident, I agree w/resident's findings & plan - HPI HPI: 10/12/18 03:46 Pt comes with sunburn to her shoulders and her chest and anterior thighs. She was at the pool today. Now with muscle pain and pain of the skin. She is well hydrated and able to eat. - Physicial Exam PE: 10/12/18 03:47 Agree with resident exam. Pt has nava/red skin on her shoulders and her neck area; no blisters. - Medical Decision Making 10/12/18 03:47 Silvadene cream to the sunburned skin. Basic labs and IVF hydration 10/12/18 05:15 Labs normal; pt hydrated and she is stable to go home. Analgesics OTC for sunburn
[2018-10-12 04:21] LABS: MEAN CELL VOLUME 84.7 fl (80-96); MEAN PLT VOLUME 8.3 fl (7.5-11.1); MONO % 6.5 % (3.8-10.2); RDW 14.7 % (11.6-15.6)
[2018-10-12 04:25] LABS: EOS % 2.5 % (0-4.5); HEMATOCRIT 36.1 % (32.4-45.2); LYMPH % 27.5 % (8-40); MCH 28.1 pg (25.7-33.7); MCHC 33.1 g/dl (32.0-36.0); NEUT % 62.5 % (42.8-82.8); PLATELET COUNT 313 K/MM3 (134-434); RBC 4.26 M/mm3 (3.60-5.2); WHITE BLOOD COUNT 10.7 K/mm3 (4.0-10.0)
[2018-10-12] MEDS ORDERED: KETOROLAC TROMETHAMINE 30 MG/1 ML VIAL IVPUSH ONE (04:35)
[2018-10-12] MEDS ORDERED: KETOROLAC TROMETHAMINE 30 MG/1 ML VIAL ONE (04:47)
[2018-10-12 04:55] LABS: ALBUMIN 3.7 g/dl (3.4-5.0); BILIRUBIN,TOTAL 0.5 mg/dL (0.2-1); CALCIUM 8.9 mg/dL (8.5-10.1); CREATININE 0.7 mg/dL (0.55-1.3); POTASSIUM 4.5 mmol/L (3.5-5.1); TOT PROT 7.1 g/dl (6.4-8.2)
[2018-10-12 05:40] VITALS: BP 116/65
== END 2018-10-12 05:41 | disposition home or self-care (01) ==
LOC: JER 02:16
PROC: 3E033NZ Introduction of Analgesics, Hypnotics, Sedatives into Peripheral Vein, Percutaneous Approach (ICD-10-PCS; principal; 2018-10-12)
PROC: 3E0333Z Introduction of Anti-inflammatory into Peripheral Vein, Percutaneous Approach (ICD-10-PCS; 2018-10-12)
PROC: 3E0337Z Introduction of Electrolytic and Water Balance Substance into Peripheral Vein, Percutaneous Approach (ICD-10-PCS; 2018-10-12)
PROC: 3E033GC Introduction of Other Therapeutic Substance into Peripheral Vein, Percutaneous Approach (ICD-10-PCS; 2018-10-12)
DX: L55.9 Sunburn, unspecified (principal); F41.9 Anxiety disorder, unspecified
CPT/HCPCS: 36415; 80053; 82550; 85025; 96361; 96365; 96375; 99282-25; J0131

== ENCOUNTER 2019-03-07 18:06 | Emergency (ER) | payer OTHER ==
[2019-03-07 18:12] VITALS: BP 171/74; PULSE 76; TEMP 98; BMI 43.5
--- NOTE | 2019-03-07 20:50 | PDOC ---
Attending Attestation - Resident Resident Name: Karena Marie - ED Attending Attestation I have performed the following: I have examined & evaluated the patient, The case was reviewed & discussed with the resident, I agree w/resident's findings & plan - HPI HPI: 03/07/19 21:12 Pt comes with mid sternal chest pain that came on while she was at home eating rice and beans. She states that immediately afterward she had nape of neck pain that radiated up her head. She got nervous and came in. States that she took nothing for the pain and that she is feeling better at this time. BP was elevated on arrival. Currently with an appropriate sized cuff, she has a BP of 129/79. Pt feels much better at this time. - Physicial Exam PE: 03/07/19 21:22 Agree with resident exam. Pt has normal vitals afebrile She has no abd pain at this time No flank pain Pt has normal heart and lungs. Extremities no edema - Medical Decision Making 03/07/19 21:25 Pt will have basic labs and she will be treated with pepcid and zofran Awaiting EKG and CXR 03/07/19 22:41 All labs are normal Pt awaiting CXR 03/07/19 23:14 CXR normal; pt will be discharged home. She is feeling better Heart Score/ECG Review - ECG Intrepretation Rhythm: Regular Rhythm - [place]: Normal - P and [place] Wave(s) Present: No WPW: No - QRS Poor R Wave Progression: No Q Wave Present: No - ST and T Early Repolarization: No Non Specific ST-T Wave changes: No Flattened T Waves: No Prolonged Q-T Interval: No - ECG Impressions Normal ECG: Yes Non-specific ST Elevation: No Ischemic Changes: No Bradycardia: No Torsades norm Pointes: No
--- NOTE | 2019-03-07 21:07 | PDOC ---
History of Present Illness - General Chief Complaint: Pain Stated Complaint: CHEST PAIN & HEADACHE Time Seen by Provider: 03/07/19 20:32 - History of Present Illness Initial Comments: Bethel Rae is a 34yo woman with no reported medical problems who presents to the ED with one day of epigastric/chest discomfort and now with headache. She reports that yesterday evening, she started to feel that she had food "stuck " in the epigastrium along with the sensation of food coming back up. She started to have a temporal headache as well. Ms Rae took 650mg acetaminophen and was able to go to sleep, but she woke up overnight with pain in the mid chest behind her sternum. The pain continued when she woke up today. She also started to have a worsening headache, that has since spread around to the back of her head and upper neck. Ms Rae denies any difficulty breathing, sweating, vomiting, lightheadedness , fever/chills, weakness, numbness, photophobia, phonophobia, changes in vision or hearing, neck stiffness, recent fall/trauma, personal or family cardiac history, personal or family h/o DM, recent cough/URI or any other recent symptoms. She endorses a previous cholecystectomy. Past History - Past Medical History Allergies/Adverse Reactions: Allergies Allergy/AdvReac Type Severity Reaction Status Date / Time No Known Allergies Allergy Verified 03/07/19 18:12 Home Medications: Ambulatory Orders Silver Sulfadiazine [Ssd] 1 applic TP DAILY #505 cream..g. 10/12/18 Anemia: Yes (b12) Asthma: No Cancer: No Cardiac Disorders: No CVA: No COPD: No CHF: No DVT: No Dementia: No Diabetes: No GI Disorders: Yes (gallstone) Disorders: No HTN: No Hypercholesterolemia: No Liver Disease: No Psychiatric Problems: Yes (ANXIETY) Seizures: No Thyroid Disease: No - Surgical History Abdominal Surgery: No Appendectomy: No Cardiac Surgery: No Cholecystectomy: Yes GI Surgery: Yes (Cholecystectomy,) Lung Surgery: No Neurologic Surgery: No Orthopedic Surgery: No - Reproductive History Cervical CA: No Dysfunctional Uterine Bleeding: No Ectopic : No Endometrial CA: No Therapeutic (s) & number: No Tubal Ligation: Yes - Immunization History Immunization Up to Date: Yes - Psycho Social/Smoking Cessation Hx Smoking Status: Yes Smoking History: Current some day smoker Have you smoked in the past 12 months: No Number of Cigarettes Smoked Daily: 0 Cigars Per Day: 0 Information on smoking cessation initiated: No 'Breaking Loose' booklet given: 08/22/16 Hx Alcohol Use: No Drug/Substance Use Hx: No Substance Use Type: Alcohol Hx Substance Use Treatment: No Review of Systems - Review of Systems Comments:: General: No fevers, no chills, no weight or appetite change, no malaise HEENT: No changes in vision, no changes in hearing, no congestion, no sore throat CV: + chest pain, no palpitations, no LE edema Pulm: No SOB, no cough, no wheezing GI: No nausea or vomiting, no change in bowel habits, no melena. +Epigastric pain : No frequency, no urgency, no dysuria Musc: No back pain, no joint swelling, no recent injury Skin: No rash, no lesions, no erythema Endo: No excessive thirst, no heat/cold intolerance Heme: No unusual bruising or bleeding, no swollen glands Neuro: No syncope, no numbness/tingling, no focal weakness Vasc: No claudication Psych: No recent change in mood, no SI or HI *Physical Exam - Vital Signs Last Vital Signs Temp Pulse Resp BP Pulse Ox 98 F 76 18 171/74 H 98 03/07/19 18:10 03/07/19 18:10 03/07/19 18:10 03/07/19 18:10 03/07/19 18:10 - Physical Exam General: Comfortable, obese woman, appears stated age, no acute distress HEENT: PERRL, EOMI, MMM, voice normal, normal neck ROM. No midline neck tenderness Cards: RRR, no murmur appreciated. Low sternal discomfort with palpation Pulm: Comfortable on room air, clear to auscultation bilaterally Abd: Soft, nondistended. Epigastric TTP. Ext: Atraumatic. No LE edema. ROM intact. WWP Skin: Normal color, no rashes or lesions Neuro: A&Ox3, CN grossly intact, normal speech, motor/sensory grossly intact and symmetric Psych: Mood appropriate to situation ED Treatment Course - LABORATORY CBC & Chemistry Diagram: 03/07/19 21:40 03/07/19 21:40 Medical Decision Making - Medical Decision Making 03/07/19 21:00 Bethel Rae is a 34yo woman with no reported medical problems who presents to the ED with one day of epigastric/chest discomfort, worsened with laying flat , and now with headache. She denies any associated fever, lightheadedness, difficulty breathing, or neurological symptoms. - Most likely GERD/gastritis but HTN on arrival, obese. Will send one trop to evaluate for ACS. No red flag symptoms w/ ESTRELLA including fever, neck stiffness, or neurological changes - Pt reported feeling food was stuck but has been eating/drinking today without difficulty, no vomiting reported - CBC, CMP, trop, EKG, CXR - IVF, acetaminophen, reglan, benadryl, maalox - Reassess 03/07/19 22:16 - Pt feeling improved, ESTRELLA resolved but epigastric discomfort still present though decreased - CBC and chemistry unremarkable. - Trop pending, will follow 03/07/19 22:53 - Trop negative - EKG w/ NSR, HR 67, normal axis, normal intervals, no ST or t-wave changes. - Taken for CXR - Pt requesting to be discharged, now feels better. Given negative workup, will most likely D/C home with GI follow up if no abnormalities are seen on xray. 03/07/19 23:08 - CXR reviewed. No focal abnormalities appreciated. Unchanged from prior - D/c home Discussed with Dr Shan Marie PGY2 Discharge - Discharge Information Problems reviewed: Yes Clinical Impression/Diagnosis: Epigastric abdominal pain GERD (gastroesophageal reflux disease) Qualifiers: Esophagitis presence: esophagitis presence not specified Qualified Code(s): K21.9 - Gastro-esophageal reflux disease without esophagitis Condition: Stable Disposition: HOME - Admission No - Follow up/Referral Referrals: Felix Kumar MD [Staff Physician] - - Patient Discharge Instructions Patient Printed Discharge Instructions: DI for Gastroesophageal Reflux Disease (GERD) Additional Instructions: Discharge Instructions: You were seen in the emergency department for upper abdominal/chest pain and headache. Your blood tests, chest xray and EKG did not show any concerning findings. Your pain is most likely due to acid reflux (heartburn) and your headache is most likely a tension headache. Home Care: - Make sure you are drinking plenty of fluids. Stay well hydrated - Take an acid medication such as Pepcid or Xantac every day. It may help if you take this 30 minutes before dinner every day. - You may take Maalox or Mylanta as needed for continued stomach pain or heartburn - Avoid spicy foods, greasy foods, caffeine, alcohol, or anything that seems to irritate your stomach - Sleep with your head slightly elevated - Take acetaminophen (Tylenol) 650-1000mg every 6-8 hours as needed for headaches. - Avoid medications such as ibuprofen (Advil, Motrin) or naproxen (Aleve) as these can irritate your stomach. - Follow up with a GI specialist as you may need additional testing to see if you have chronic acid reflux. You have been given contact information for Dr Kuamr. Call to schedule an appointment within the next 1-2 weeks. - Seek immediate care for any worsening symptoms, persistent vomiting, inability to eat, difficulty breathing, chest pain with exercise, or any other medical emergency. - Post Discharge Activity
[2019-03-07] MEDS ORDERED: METOCLOPRAMIDE HCL INJECTION 10 MG/2 ML VIAL IVPUSH ONE (21:08)
[2019-03-07] MEDS ORDERED: MAG HYDROX/AL HYDROX/SIMETH -MYLANTA- ORAL SUSPENSION PO ONE (21:08)
[2019-03-07] MEDS ORDERED: ACETAMINOPHEN 1000 MG/100 ML VIAL (NON FORMULARY) IVPB ONE (21:08)
[2019-03-07] MEDS ORDERED: SODIUM CHLORIDE 0.9% 500 ML INFUS.BAG IV ONE (21:08)
[2019-03-07] MEDS ORDERED: METOCLOPRAMIDE HCL INJECTION 10 MG/2 ML VIAL ONE (21:28)
[2019-03-07] MEDS ORDERED: ACETAMINOPHEN INJECTION 100 ML IVPB ONE (21:28)
[2019-03-07 21:46] LABS: BASO % 0.9 % (0-2.0); EOS % 1.8 % (0-4.5); HEMATOCRIT 35.6 % (32.4-45.2); HEMOGLOBIN 11.7 GM/dL (10.7-15.3); LYMPH % 27.8 % (8-40); MCH 28.1 pg (25.7-33.7); MEAN CELL VOLUME 85.2 fl (80-96); MEAN PLT VOLUME 7.8 fl (7.5-11.1); MONO % 6.2 % (3.8-10.2); NEUT % 63.3 % (42.8-82.8); PLATELET COUNT 321 K/MM3 (134-434); RBC 4.18 M/mm3 (3.60-5.2); RDW 14.2 % (11.6-15.6); WHITE BLOOD COUNT 10.8 K/mm3 (4.0-10.0)
[2019-03-07] MEDS ORDERED: MAG HYDROX/AL HYDROX/SIMETH 30 ML UNIT-DOSE CUP ONE (22:02)
[2019-03-07 22:14] LABS: ALBUMIN 3.3 g/dl (3.4-5.0); BILIRUBIN,TOTAL 0.3 mg/dL (0.2-1); BLOOD UREA NITROGEN 12.1 mg/dL (7-18); CALCIUM 8.8 mg/dL (8.5-10.1); CREATININE 0.9 mg/dL (0.55-1.3); POTASSIUM 4.2 mmol/L (3.5-5.1); TOT PROT 6.6 g/dl (6.4-8.2)
--- NOTE | 2019-03-09 09:48 | EKG ---
Test Reason : Blood Pressure : / mmHG Vent. Rate : 067 BPM Atrial Rate : 067 BPM P-R Int : 166 ms QRS Dur : 092 ms QT Int : 398 ms P-R-T Axes : 036 059 044 degrees QTc Int : 420 ms NORMAL SINUS RHYTHM NORMAL ECG WHEN COMPARED WITH ECG OF 09-OCT-2018 16:37, NO SIGNIFICANT CHANGE WAS FOUND Confirmed by MD Silver Daniel ([id number]) on 03/09/2019 9:48:09 AM Referred By: Confirmed By:Dawood Sivler MD
== END 2019-03-07 23:29 | disposition home or self-care (01) ==
LOC: JER 18:06
DX: K21.9 Gastro-esophageal reflux disease without esophagitis (principal); R10.13 Epigastric pain; F17.210 Nicotine dependence, cigarettes, uncomplicated
CPT/HCPCS: 36415; 71046-TC-FY; 80053; 82550; 84484; 85025; 93005; 93010; 99283-25; J0131

== ENCOUNTER 2019-03-24 14:46 | Emergency (ER) | payer OTHER ==
[2019-03-24 15:02] VITALS: BMI 47.0
--- NOTE | 2019-03-24 15:03 | PDOC ---
Rapid Medical Evaluation Time Seen by Provider: 03/24/19 14:50 Medical Evaluation: Allergies Allergy/AdvReac Type Severity Reaction Status Date / Time No Known Allergies Allergy Verified 03/07/19 18:12 03/24/19 15:02 Pt c/o: shakiness since awakening this am, states was out on DARBY but drank plenty of water, no other complaints Pt on brief exam: nsr, vss Plan: ekg
--- NOTE | 2019-03-24 16:20 | PDOC ---
History of Present Illness - General History Source: Patient Exam Limitations: No Limitations <Sagrario Walker - Last Filed: 03/25/19 19:41> <Kwan Loyola - Last Filed: 03/27/19 17:37> - General Chief Complaint: Chest Pain Stated Complaint: CHEST PAIN Time Seen by Provider: 03/24/19 14:50 Past History - Travel Traveled outside of the country in the last 30 days: No Close contact w/someone who was outside of country & ill: No - Past Medical History Anemia: Yes (b12) Asthma: No Cancer: No Cardiac Disorders: No CVA: No COPD: No CHF: No DVT: No Dementia: No Diabetes: No GI Disorders: Yes (gallstone) Disorders: No HTN: No Hypercholesterolemia: No Liver Disease: No Psychiatric Problems: Yes (ANXIETY) Seizures: No Thyroid Disease: No - Surgical History Abdominal Surgery: No Appendectomy: No Cardiac Surgery: No Cholecystectomy: Yes GI Surgery: Yes (Cholecystectomy,) Lung Surgery: No Neurologic Surgery: No Orthopedic Surgery: No - Reproductive History Cervical CA: No Dysfunctional Uterine Bleeding: No Ectopic : No Endometrial CA: No Therapeutic (s) & number: No Tubal Ligation: Yes - Immunization History Immunization Up to Date: Yes - Psycho Social/Smoking Cessation Hx Smoking Status: Yes Smoking History: Current some day smoker Have you smoked in the past 12 months: Yes Number of Cigarettes Smoked Daily: 0 Cigars Per Day: 0 Information on smoking cessation initiated: No 'Breaking Loose' booklet given: 08/22/16 Hx Alcohol Use: No Drug/Substance Use Hx: No Substance Use Type: Alcohol Hx Substance Use Treatment: No <Sagrario Walker - Last Filed: 03/25/19 19:41> <Kwan Loyola - Last Filed: 03/27/19 17:37> - Past Medical History Allergies/Adverse Reactions: Allergies Allergy/AdvReac Type Severity Reaction Status Date / Time No Known Allergies Allergy Verified 03/07/19 18:12 Home Medications: Ambulatory Orders Silver Sulfadiazine [Ssd] 1 applic TP DAILY #505 cream..g. 10/12/18 Famotidine [Pepcid -] 20 mg PO BID #14 tablet 03/24/19 Pantoprazole Sodium [Protonix -] 20 mg PO BID #14 tablet.ec 03/24/19 Sucralfate Oral Suspension [Carafate *Oral Susp*] 1 gm PO QID #200 ml 03/24/19 Review of Systems - Review of Systems Able to Perform ROS?: Yes Comments:: 03/24/19 19:42 CONSTITUTIONAL: Absent: fever, chills, diaphoresis, generalized weakness, malaise, loss of appetite HEENT: Absent: rhinorrhea, nasal congestion, throat pain, throat swelling, difficulty swallowing, mouth swelling, ear pain, eye pain, visual Changes CARDIOVASCULAR: Present: Chest pain. Absent: loss of consciousness, palpitations, irregular heart rate, peripheral edema RESPIRATORY: Absent: cough, shortness of breath, dyspnea with exertion, orthopnea, wheezing, stridor, hemoptysis GASTROINTESTINAL: Present: Abdominal pain. Absent: abdominal distension, nausea, vomiting, diarrhea, constipation, melena, hematochezia GENITOURINARY: Absent: dysuria, frequency, urgency, hesitancy, hematuria, flank pain, genital pain MUSCULOSKELETAL: Absent: myalgia, arthralgia, joint swelling SKIN: Absent: rash, itching, pallor NEUROLOGIC: Absent: headache, focal weakness or paresthesias, dizziness, unsteady gait, seizure, mental status changes, bladder or bowel incontinence PSYCHIATRIC: Absent: anxiety, depression, suicidal or homicidal ideation, hallucinations. Is the patient limited [place] proficient: No <Sagrario Walker - Last Filed: 03/25/19 19:41> *Physical Exam - Vital Signs Last Vital Signs Temp Pulse Resp BP Pulse Ox 98.4 F 94 H 18 134/85 99 03/24/19 14:59 03/24/19 14:59 03/24/19 14:59 03/24/19 14:59 03/24/19 14:59 - Physical Exam 03/24/19 19:55 GENERAL: Well developed, well nourished. Awake and alert. No acute distress. HEENT: Normocephalic, atraumatic. PERRLA, EOMI. No conjunctival pallor. Sclera are non- icteric. Moist mucous membranes. Oropharynx is clear. NECK: Supple. Full ROM. CARDIOVASCULAR: Regular rate and rhythm. No murmurs, rubs, or gallops. Distal pulses are 2+ and symmetric. PULMONARY: No evidence of respiratory distress. Lungs clear to auscultation bilaterally. No wheezing, rales or rhonchi. ABDOMINAL: TTP of the epigastric region and LUQ. Soft. Non-distended. No rebound or guarding. No organomegaly. Normoactive bowel sounds. MUSCULOSKELETAL Normal range of motion at all joints. No bony deformities or tenderness. No CVA tenderness. EXTREMITIES: No cyanosis. No clubbing. No edema. No calf tenderness. SKIN: Warm and dry. Normal capillary refill. No rashes. No jaundice. NEUROLOGICAL: Alert, awake, appropriate. Cranial nerves 2-12 intact. No deficits to light touch and temperature in face, upper extremities and lower extremities. No motor deficits in the in face, upper extremities and lower extremities. Normoreflexic in the upper and lower extremities. Normal speech. Toes are down- going bilaterally. Gait is normal without ataxia. PSYCHIATRIC: Cooperative. Good eye contact. Appropriate mood and affect. <Sagrario Walker - Last Filed: 03/25/19 19:41> - Vital Signs Last Vital Signs Temp Pulse Resp BP Pulse Ox 97.9 F 75 16 134/80 99 03/24/19 22:47 03/24/19 22:47 03/24/19 22:47 03/24/19 22:47 03/24/19 15:30 <Kwan Loyola - Last Filed: 03/27/19 17:37> ED Treatment Course - LABORATORY CBC & Chemistry Diagram: 03/24/19 17:09 03/24/19 17:09 <Sagrario Walker - Last Filed: 03/25/19 19:41> - LABORATORY CBC & Chemistry Diagram: 03/24/19 17:09 03/24/19 17:09 - ADDITIONAL ORDERS Additional order review: 03/24/19 17:09 Urine Culture - Final Urine - Urine Clean Catch Strep Agalactiae Group B 03/24/19 17:09 RBC 4.37 MCV 85.5 MCHC 32.3 RDW 14.9 MPV 7.8 Neutrophils % 71.8 Lymphocytes % 21.3 D Monocytes % 5.4 Eosinophils % 0.9 Basophils % 0.6 - Medications Given in the ED: ED Medications Discontinued Medications Generic Name Dose Route Start Last Admin Trade Name Freq PRN Reason Stop Dose Admin Acetaminophen 1,000 mg 03/24/19 18:29 03/24/19 19:26 Ofirmev Injection - IVPB 03/24/19 18:30 1,000 mg ONCE ONE Administration Al Hydroxide/Mg Hydroxide 30 ml 03/24/19 16:29 03/24/19 16:33 Mylanta Oral Suspension - PO 03/24/19 16:30 30 ml ONCE ONE Administration Famotidine/Sodium Chloride 20 mg in 50 mls @ 100 mls/hr 03/24/19 16:29 16:34 Pepcid 20 Mg Premixed Ivpb - IVPB 03/24/19 16:58 100 mls/hr ONCE ONE Administration Sodium Chloride 1,000 mls @ 1,000 mls/hr 03/24/19 16:29 03/24/19 16:33 Normal Saline - IV 03/24/19 17:28 1,000 mls/hr ASDIR STA Administration Lidocaine HCl 20 ml 03/24/19 20:44 03/24/19 21:14 Xylocaine 2% Viscous Oral - MM 03/24/19 20:45 20 ml ONCE ONE Administration Ondansetron HCl 4 mg 03/24/19 16:29 03/24/19 16:34 Zofran Injection IVPUSH 03/24/19 16:30 4 mg ONCE ONE Administration Pantoprazole Sodium 40 mg 03/24/19 20:44 03/24/19 21:14 Protonix - PO 03/24/19 20:45 40 mg ONCE ONE Administration <Kwan Loyola - Last Filed: 03/27/19 17:37> Medical Decision Making - Medical Decision Making 03/24/19 23:02 Patient is 34-year-old female with past medical history of gastritis, GERD, cholecystectomy, presents to the ER today for chest pain and stomach pain. She states that she has had this pain on and off for about 2 weeks. She states that it got worse after she drank last night. She states she drank a large quantity of alcohol, and cannot say exactly how much alcohol she drank last night. She states when she woke up this morning the pain was excruciating so she came to the ER for evaluation. She states that the pain is coming up to her chest and she is concerned about her heart. She states that it hurts more to eat or drink water. She does see a GI specialist for her reflux. Denies fevers, chills, vomiting, nausea, urinary symptoms, constipation and diarrhea. A/P: Alcoholic gastritis On exam patient with exquisite tenderness to the epigastric region. Patient with history of cholecystectomy. Given degree of pain, CT AP was ordered. Basic labs are unremarkable. No evidence of pancreatitis or elevated bilirubin on exam. GI cocktail given with relief of symptoms. No vomiting in the ER. CT is negative for acute pathology Likely worsening of her gastritis due to alcohol intake Discharge home with GI follow-up I discussed the physical exam findings, ancillary test results and final diagnoses with the patient. I answered all of the patient's questions. The patient was satisfied with the care received and felt comfortable with the discharge plan and treatment plan. The Patient agrees to follow up with the primary care physician/specialist within 24-72 hours. Return precautions were given. <Sagrario Walker - Last Filed: 03/25/19 19:41> - Medical Decision Making 03/27/19 17:34 I reviewed the case of the mid-level practitioner and was available for consultation while in the emergency department <Kwan Loyola - Last Filed: 03/27/19 17:37> Discharge - Discharge Information Problems reviewed: Yes - Admission No <Sagrario Walker - Last Filed: 03/25/19 19:41> <Kwan Loyola - Last Filed: 03/27/19 17:37> - Discharge Information Clinical Impression/Diagnosis: Gastritis Qualifiers: Gastritis type: unspecified gastritis Chronicity: acute Gastritis bleeding: without bleeding Qualified Code(s): K29.00 - Acute gastritis without bleeding Condition: Stable Disposition: HOME - Additional Discharge Information Prescriptions: Famotidine [Pepcid -] 20 mg PO BID #14 tablet Pantoprazole Sodium [Protonix -] 20 mg PO BID #14 tablet.ec Sucralfate Oral Suspension [Carafate *Oral Susp*] 1 gm PO QID #200 ml - Follow up/Referral Referrals: Bridgett Valencia MD [Primary Care Provider] - - Patient Discharge Instructions Patient Printed Discharge Instructions: DI for Gastritis Additional Instructions: You were evaluated for your chest pain today. It is most likely due to your reflux. Please take the Pepcid and the pantoprazole twice a day for 1 week Take the carofate as directed. Please follow-up with your GI doctor tomorrow Eat a bland diet including plain rice, applesauce, toast and chicken noodle soup. Avoid spicy and fatty foods. Return to ER for worsening pain, vomiting, lightheadedness or if you have any changes in your symptoms. - Post Discharge Activity Work/Back to School Note: Back to Work
[2019-03-24] MEDS ORDERED: FAMOTIDINE 20 MG/50 ML IVPB 20 MG/50 ML MG IVPB ONE ×2 (16:29→16:35)
[2019-03-24] MEDS ORDERED: MAG HYDROX/AL HYDROX/SIMETH 30 ML UNIT-DOSE CUP PO ONE (16:29)
[2019-03-24] MEDS ORDERED: SODIUM CHLORIDE 1,000 ML IV STA (16:29)
[2019-03-24] MEDS ORDERED: ONDANSETRON 4 MG/2 ML VIAL IVPUSH ONE (16:29)
[2019-03-24] MEDS ORDERED: ONDANSETRON 4 MG/2 ML VIAL ONE (16:35)
[2019-03-24] MEDS ORDERED: MAG HYDROX/AL HYDROX/SIMETH 30 ML UNIT-DOSE CUP ONE (16:35)
[2019-03-24 17:30] LABS: BASO % 0.6 % (0-2.0); EOS % 0.9 % (0-4.5); HEMATOCRIT 37.4 % (32.4-45.2); HEMOGLOBIN 12.1 GM/dL (10.7-15.3); LYMPH % 21.3 % (8-40); MCH 27.6 pg (25.7-33.7); MCHC 32.3 g/dl (32.0-36.0); MEAN CELL VOLUME 85.5 fl (80-96); MEAN PLT VOLUME 7.8 fl (7.5-11.1); MONO % 5.4 % (3.8-10.2); NEUT % 71.8 % (42.8-82.8); PLATELET COUNT 377 K/MM3 (134-434); RBC 4.37 M/mm3 (3.60-5.2); RDW 14.9 % (11.6-15.6)
[2019-03-24 17:34] LABS: EPI CELLS 1.2 /HPF (0-5/HPF); HYALINE CASTS 1 /lpf (0-8); URINE APPEARANCE CLEAR; URINE BACTERIA 33.4 /hpf (NEGATIVE); URINE BILIRUBIN NEGATIVE (NEGATIVE); URINE COLOR YELLOW; URINE GLUCOSE (UA) NEGATIVE (NEGATIVE); URINE KETONE 2+ (NEGATIVE); URINE LEUK ESTERASE NEGATIVE (NEGATIVE); URINE NITRITE NEGATIVE (NEGATIVE); URINE PROTEIN NEGATIVE (NEGATIVE); URINE RBC 31 /hpf (0-4); URINE UROBILINOGEN 0.2 mg/dL (0.2-1.0); URINE WBC 1 /hpf (0-5)
[2019-03-24 18:00] LABS: ALBUMIN 3.9 g/dl (3.4-5.0); ALK PHOS 92 U/L (45-117); ANION GAP 8 MMOL/L (8-16); BILIRUBIN,TOTAL 0.6 mg/dL (0.2-1); CALCIUM 9.1 mg/dL (8.5-10.1); CHLORIDE 108 mmol/L (98-107); CO2 25 mmol/L (21-32); CREATININE 0.7 mg/dL (0.55-1.3); GLUCOSE,RANDOM 75 mg/dL (74-106); POTASSIUM 4.3 mmol/L (3.5-5.1); SGOT/AST 22 U/L (15-37); SGPT/ALT 28 U/L (13-61); SODIUM 141 mmol/L (136-145); TOT PROT 7.6 g/dl (6.4-8.2)
[2019-03-24] MEDS ORDERED: ACETAMINOPHEN 1000 MG/100 ML VIAL (NON FORMULARY) IVPB ONE (18:29)
[2019-03-24] MEDS ORDERED: ACETAMINOPHEN INJECTION 100 ML IVPB ONE (19:31)
[2019-03-24] MEDS ORDERED: LIDOCAINE VISCOUS 2% ORAL/TOP 20 ML UNIT-DOSE CUP MM ONE (20:44)
[2019-03-24] MEDS ORDERED: PANTOPRAZOLE 40 MG TABLET (FP) PO ONE (20:44)
[2019-03-24] MEDS ORDERED: PANTOPRAZOLE 40 MG TABLET (FP) ONE (21:40)
[2019-03-24] MEDS ORDERED: LIDOCAINE VISCOUS 2% ORAL/TOP 20 ML UNIT-DOSE CUP ONE (21:40)
[2019-03-24 22:48] VITALS: BP 134/80; PULSE 75; TEMP 97.9
--- NOTE | 2019-03-25 11:52 | EKG ---
Test Reason : Blood Pressure : / mmHG Vent. Rate : 090 BPM Atrial Rate : 090 BPM P-R Int : 140 ms QRS Dur : 098 ms QT Int : 376 ms P-R-T Axes : 047 051 045 degrees QTc Int : 459 ms NORMAL SINUS RHYTHM CANNOT RULE OUT ANTERIOR INFARCT , AGE UNDETERMINED ABNORMAL ECG WHEN COMPARED WITH ECG OF 07-MAR-2019 21:48, NO SIGNIFICANT CHANGE WAS FOUND Confirmed by AMOL THOMAS, MER ([id number]) on 03/25/2019 11:52:28 AM Referred By: Confirmed By:MER CARMICHAEL MD
== END 2019-03-24 22:48 | disposition home or self-care (01) ==
LOC: JER 14:46
PROC: 3E033NZ Introduction of Analgesics, Hypnotics, Sedatives into Peripheral Vein, Percutaneous Approach (ICD-10-PCS; principal; 2019-03-24)
PROC: 3E033GC Introduction of Other Therapeutic Substance into Peripheral Vein, Percutaneous Approach (ICD-10-PCS; 2019-03-24)
DX: K29.00 Acute gastritis without bleeding (principal); F17.210 Nicotine dependence, cigarettes, uncomplicated; F41.9 Anxiety disorder, unspecified
CPT/HCPCS: 36415; 74176-TC; 80053; 81003; 82550; 82553; 83690; 84484; 85025; 87077; 87086; 93005; 93010; 99282-25; J0131; J7030

== ENCOUNTER 2019-05-22 19:21 | Emergency (ER) | payer OTHER ==
[2019-05-22 19:33] VITALS: BP 130/87; PULSE 87; TEMP 98.2; BMI 45.6
[2019-05-22] MEDS ORDERED: SODIUM CHLORIDE 1,000 ML IV ONE (19:57)
[2019-05-22] MEDS ORDERED: FAMOTIDINE 20 MG/50 ML IVPB 20 MG/50 ML MG IVPB ONE ×2 (19:57→19:59)
[2019-05-22 20:33] LABS: BASO % 0.1 % (0-2.0); EOS % 1.6 % (0-4.5); HEMATOCRIT 38.9 % (32.4-45.2); HEMOGLOBIN 12.7 GM/dl (10.7-15.3); MCHC 32.7 g/dl (32.0-36.0); MEAN CELL VOLUME 85.7 fl (80-96); MEAN PLT VOLUME 7.9 fl (7.5-11.1); MONO % 3.3 % (3.8-10.2); PLATELET COUNT 375 K/MM3 (134-434); RBC 4.54 M/mm3 (3.60-5.2); RDW 13.4 % (11.6-15.6)
[2019-05-22 20:52] LABS: ALBUMIN 3.9 g/dl (3.4-5.0); BILIRUBIN,TOTAL 0.9 mg/dl (0.2-1); CALCIUM 8.7 mg/dl (8.5-10); CREATININE 0.7 mg/dl (0.55-1.3); TOT PROT 7.5 g/dl (6.4-8.2)
--- NOTE | 2019-05-22 20:57 | PDOC ---
Documentation entered by Tian Brooks SCRIBE, acting as scribe for Leesa Michael MD. Leesa Michael MD: This documentation has been prepared by the Cecilia parikh Angel, SCRIBE, under my direction and personally reviewed by me in its entirety. I confirm that the documentation accurately reflects all work, treatment, procedures, and medical decision making performed by me. History of Present Illness - General Chief Complaint: Nausea/Vomiting Stated Complaint: ABD PAIN/N/V/D Time Seen by Provider: 05/22/19 19:23 History Source: Patient Exam Limitations: No Limitations - History of Present Illness Travel History: No Initial Comments: 05/22/19 20:03 The patient is a 34 year old female with no significant past medical history who presents to the ED with mild epigastric abdominal pain, nausea and diarrhea since earlier today. Patient reports three episodes of diarrhea today with the last episode occurring an hour ago. Patient states she has chills but no fever. Patient states she has not taken any medication for her symptoms. Patient denies any fever, chest pain or SOB. 05/22/19 20:06 Assessment and plan: This is a 34-year-old female with multiple ED visits approximately 5-6 times a year for similar type complaints. Patient comes in today for epigastric pain nausea and diarrhea. On my exam patient had a normal of the exam with the exception of some mild tenderness in the epigastric area. Patient otherwise appears well-hydrated and in no acute distress. Work-up initiated including CBC, comp and lipase of note patient has had her gallbladder removed Patient given Pepcid and IV fluids. 05/22/19 20:08 05/22/19 21:32 Reevaluation. Patient sleeping comfortably patient still complaining of some mild epigastric discomfort otherwise feels better. Patient has had no vomiting or diarrhea here in the emergency room is able to tolerate p.o.'s Patient's blood work was unremarkable including a normal CBC and chemistries Patient discharged we will follow-up with her primary care doctor Past History - Past Medical History Allergies/Adverse Reactions: Allergies Allergy/AdvReac Type Severity Reaction Status Date / Time No Known Allergies Allergy Verified 03/07/19 18:12 Home Medications: Ambulatory Orders NK [No Known Home Medication] 05/22/19 Anemia: Yes (b12) Asthma: No Cancer: No Cardiac Disorders: No CVA: No COPD: No CHF: No DVT: No Dementia: No Diabetes: No GI Disorders: Yes (GERD) Disorders: No HTN: No Hypercholesterolemia: No Liver Disease: No Psychiatric Problems: Yes (ANXIETY) Seizures: No Thyroid Disease: No - Surgical History Abdominal Surgery: No Appendectomy: No Cardiac Surgery: No Cholecystectomy: Yes GI Surgery: Yes (Cholecystectomy,) Lung Surgery: No Neurologic Surgery: No Orthopedic Surgery: No - Reproductive History Cervical CA: No Dysfunctional Uterine Bleeding: No Ectopic : No Endometrial CA: No Therapeutic (s) & number: No Tubal Ligation: Yes - Immunization History Immunization Up to Date: Yes - Psycho Social/Smoking Cessation Hx Smoking Status: Yes Smoking History: Never smoked Have you smoked in the past 12 months: Yes Number of Cigarettes Smoked Daily: 0 Cigars Per Day: 0 'Breaking Loose' booklet given: 08/22/16 Hx Alcohol Use: No Drug/Substance Use Hx: No Substance Use Type: Alcohol Hx Substance Use Treatment: No Abd/GI Specific PMHX - Complaint Specific PMHX Colitis: No Diverticulitis: No Gall Bladder Disease: No GERD: Yes Hepatitis: No Irritable Bowel Synd (IBS): No Pancreatitis: No GI Ulcer Disease: No Review of Systems - Review of Systems Able to Perform ROS?: Yes Comments:: 05/22/19 20:04 GENERAL/CONSTITUTIONAL: + Chills. No fever. No weakness. HEAD, EYES, EARS, NOSE AND THROAT: No change in vision. No ear pain or discharge. No sore throat. CARDIOVASCULAR: No chest pain or shortness of breath. RESPIRATORY: No cough, wheezing, or hemoptysis. GASTROINTESTINAL: + Diarrhea. No nausea, vomiting, constipation. GENITOURINARY: No dysuria, frequency, or change in urination. MUSCULOSKELETAL: No joint or muscle swelling or pain. No neck or back pain. SKIN: No rash NEUROLOGIC: No headache, vertigo, loss of consciousness, or change in strength/ sensation. ENDOCRINE: No increased thirst. No abnormal weight change. HEMATOLOGIC/LYMPHATIC: No anemia, easy bleeding, or history of blood clots. ALLERGIC/IMMUNOLOGIC: No hives or skin allergy. *Physical Exam - Vital Signs Last Vital Signs Temp Pulse Resp BP Pulse Ox 98.2 F 87 16 130/87 100 05/22/19 19:26 05/22/19 19:26 05/22/19 19:26 05/22/19 19:26 05/22/19 19:26 - Physical Exam 05/22/19 20:04 GENERAL: Awake, alert, and fully oriented, in no acute distress HEAD: No signs of trauma EYES: PERRLA, EOMI, sclera anicteric, conjunctiva clear ENT: Auricles normal inspection, hearing grossly normal, nares patent, oropharynx clear without exudates. Moist mucosa NECK: Normal ROM, supple, no lymphadenopathy, JVD, or masses LUNGS: Breath sounds equal, clear to auscultation bilaterally. No wheezes, and no crackles HEART: Regular rate and rhythm, normal S1 and S2, no murmurs, rubs or gallops ABDOMEN: +Mild epigastric tenderness. Soft, nontender, normoactive bowel sounds. No guarding, no rebound. No masses EXTREMITIES: Normal range of motion, no edema. No clubbing or cyanosis. No cords, erythema, or tenderness NEUROLOGICAL: Cranial nerves II through XII grossly intact. Normal speech, normal gait SKIN: Warm, Dry, normal turgor, no rashes or lesions noted. ED Treatment Course - LABORATORY CBC & Chemistry Diagram: 05/22/19 20:19 05/22/19 19:58 Discharge - Discharge Information Problems reviewed: Yes Clinical Impression/Diagnosis: GERD (gastroesophageal reflux disease) Qualifiers: Esophagitis presence: esophagitis presence not specified Qualified Code(s): K21.9 - Gastro-esophageal reflux disease without esophagitis Gastritis Qualifiers: Gastritis type: unspecified gastritis Chronicity: unspecified Gastritis bleeding: without bleeding Qualified Code(s): K29.70 - Gastritis, unspecified, without bleeding Condition: Stable Disposition: HOME - Admission No - Follow up/Referral Referrals: Bridgett Valencia MD [Primary Care Provider] - - Patient Discharge Instructions Additional Instructions: Purchase some [id number] antacid such as Pepcid or Zantac and take as directed on the box as needed for discomfort. Avoid spicy and acidic foods. Tylenol as needed for body aches Return to the emergency department immediately with ANY new, persistent or worsening symptoms. Continue any medications as previously prescribed by your physician. You should follow up with your primary doctor as soon as possible regarding today's emergency department visit. . Please make sure your doctor reviews the results of your emergency evaluation. Thank you for coming to the Emergency Department today for your care. It was a pleasure to see you today. Please note that your evaluation is INCOMPLETE until you follow-up with your doctor. - Post Discharge Activity
== END 2019-05-22 21:37 | disposition home or self-care (01) ==
LOC: FER 19:21
PROC: 3E033GC Introduction of Other Therapeutic Substance into Peripheral Vein, Percutaneous Approach (ICD-10-PCS; principal; 2019-05-22)
DX: R11.2 Nausea with vomiting, unspecified (principal); F41.9 Anxiety disorder, unspecified; K21.9 Gastro-esophageal reflux disease without esophagitis
CPT/HCPCS: 36415; 80053; 83690; 85025; 99284-25; J7030

== ENCOUNTER 2019-12-12 19:56 | Emergency (ER) | payer OTHER ==
[2019-12-12 20:06] VITALS: BP 134/99; PULSE 104; TEMP 98.4; BMI 40.2
--- OUTSIDE RECORDS SUMMARY | 2019-12-12 20:09 | XMS ---
:1985 Author Organization [facility] Care Team Providers Name Role Phone ED STAFF PHYSICIAN Unavailable Unavailable ED STAFF PHYSICIANZAYRA Unavailable Unavailable ED STAFF PHYSICIAN, STAFF Unavailable Unavailable ED STAFF PHYSICIAN, LESLI Unavailable Unavailable ED STAFF PHYSICIAN Unavailable Unavailable Re-disclosure Warning The records that you are about to access may contain information from federally- assisted alcohol or drug abuse programs. If such information is present, then the following federally mandated warning applies: This information has been disclosed to you from records protected by federal confidentiality rules (42 CFR part 2). The federal rules prohibit you from making any further disclosure of this information unless further disclosure is expressly permitted by the written consent of the person to whom it pertains or as otherwise permitted by 42 CFR part 2. A general authorization for the release of medical or other information is NOT sufficient for this purpose. The Federal rules restrict any use of the information to criminally investigate or prosecute any alcohol or drug abuse patient.The records that you are about to access may contain highly sensitive health information, the redisclosure of which is protected by Article 27-F of the [facility] Public Health law. If you continue you may haveaccess to information: Regarding HIV / AIDS; Provided by facilities licensed or operated by the [facility] Office of Mental Health; or Provided by the [facility] Office for People With Developmental Disabilities. If such information is present, then the following [facility] mandated warning applies: This information has been disclosed to you from confidential records which are protected by state law. State law prohibits you from making any further disclosure of this information without the specific written consent of the person to whom it pertains, or as otherwise permitted by law. Any unauthorized further disclosure in violation of state law may result in a fine or residential sentence or both. A general authorization for the release of medical or other information is NOT sufficient authorization for further disclosure. Encounters Encounter Providers Location Date Indications Data Source(s ) Emergency Attender: ED STAFF H 04/22/2019 [facility] PHYSICIANAttender: 09:55:00 PM EST edical Center STAFF ED STAFF - 04/23/2019 PHYSICIANAdmitter: 03:14:00 AM EST ED STAFF PHYSICIAN Patient discharged. Emergency Attender: LESLI ED STAFF H 02/23/2019 09:55:00 AM [facility] PHYSICIANAttender: ZAYRA ED EST - 02/23/2019 [facility] [place] STAFF PHYSICIANAttender: STAFF 11:32:00 AM EST ED STAFF PHYSICIANAdmitter: [facility] ED STAFF PHYSICIAN Patient discharged. Emergency Admitter: ED STAFF H 01/10/2019 06:38:00 AM [facility] Medical PHYSICIAN EDT - 01/10/2019 12:47:00 Center PM EDT Patient discharged. Emergency H 01/01/2019 12:05:00 PM EDT - [address] [place] [address] 02:10:00 PM EDT Patient discharged. Emergency H 11/08/2018 03:23:00 AM EDT - [address] [place] [address] 06:44:00 AM EDT Patient discharged. Medications Medication Brand Start Product Dose Route Administrative Pharmacy [facility] Indications Reaction Description Data Name Date Form Instructions Instructions Source(s) Ibuprofen ibupro 1 complet [facility] 400 MG Oral fen ed [facility] Tablet 400 mg Medical ibuprofen Tablet [place] 400 mg , Tablet, Ordere Ordered By: d By: Emilia Rodrigez MDDirection , s: 1 tablet MDDire oral every ctions six hours : 1 PRN pain tablet oral every six hours PRN pain Naproxen naprox 1 complet [facility] 500 MG Oral en 500 ed Karthik s Tablet mg Medical naproxen Tablet Center 500 mg , Tablet, Ordere Ordered By: d By: gaurav Paul MDDirection Benjam s: 1 tablet in, oral twice MDDire a day ctions : 1 tablet oral twice a day Acetaminoph acetam 2 complet Chris nt en 325 MG inophe ed Reynaldo Oral Tablet n 325 Medical acetaminoph mg Center en 325 mg Tablet Tablet, , Ordered By: Kellie hicks By: Roscoe Song pelon s: 2 tablet Bhargav oral every a, six hours PADire PRN pain ctions : 2 tablet oral every six hours PRN pain 12 HR dextro 1 complet Mucus DM Saint Dextrometho methor ed Karthik s rphan burks-g Medical Hydrobromid uaifen Center e 30 MG / esin Guaifenesin (Mucus 600 MG DM) Extended 600 Release mg-30 Oral Tablet mg dextrometho Tablet rphan-guaif Extend enesin ed (Mucus DM) Releas 600 mg-30 e 12 mg Tablet hr, Extended Ordere Release 12 d By: hr, Ordered Margar By: pelon Song, yolanda, PADirection PADire s: 1 tablet ctions oral twice : 1 a day PRN tablet cough oral twice a day PRN cough Betamethaso clotri 1 complet Chris nt ne 0.5 mazole ed Reynaldo MG/ML / -betam Medical Clotrimazol ethaso Center e 10 MG/ML ne 1 Topical %-0.05 Cream % clotrimazol Cream, e-betametha Kellie sone 1 d By: %-0.05 % Samant Cream, jose Ordered By: Agatha Brary FNPDir Penethan la FNPDreynaio s: 1 ns: 1 applic application ation topical topica twice a day l twice a day Azithromyci AZITHr 1 complet Chris nt n 500 MG omycin ed Reynaldo Oral Tablet 500 mg Medica l AZITHromyci Tablet Center n 500 mg , Tablet, Ordere Ordered By: d By: pelon Marin Bhargav s: 1 tablet a, oral daily PADire ctions : 1 tablet oral daily Clindamycin clinda 1 complet Chris nt 300 MG Oral mycin ed Reynaldo Capsule HCl Medical clindamycin 300 mg Center HCl 300 mg Capsul Capsule, e, Ordered By: Kellie hicks By: AshaJohnlaisha FNPDirectio jose ns: 1 Penar, capsule FNPDir oral three ection times a day s: 1 capsul e oral three times a day Insurance Providers Payer name Policy type Policy ID Covered Covered constitution party's Policy P marleni / Coverage constitution party ID relationship to [facility] ormation type thompson MICHEAL [id number] SP [id number] 300 HEALTH NON CAP MICHEAL [id number] SP [id number] 300 HEALTH NON CAP MICHEAL CARE W [id number] 01 [id number] [place] [id number] SP [id number] MVP/HHP O [id number] 01 [id number] MVP/HHP O [id number] 01 [id number] 800 [facility] [place] [id number] [place] [id number] O Problems, Conditions, and Diagnoses Code Display Name Description Problem Type Effective Data Sour ce(s) Dates Z53.21 Procedure and PROC/TRTMT NOT CRD Diagnosis 04/22/2019 [facility] treatment not OUT D/T PT LV BEF 09:55:00 PM Med ical Center carried out due to SEEN BY [facility] EST patient leaving PROV prior to being seen by health care provider R10.9 Unspecified UNSPECIFIED Diagnosis 04/22/2019 [facility] abdominal pain ABDOMINAL PAIN 09:55:00 PM Medic al Center EST L02.411 Cutaneous abscess CUTANEOUS ABSCESS Diagnosis 02/23/2019 [facility] of right axilla OF RIGHT AXILLA 09:55:00 AM Med ical Center EST R21 Rash and other RASH AND OTHER Diagnosis 02/23/2019 [facility] nonspecific skin NONSPECIFIC SKIN 09:55:00 AM edical Center eruption ERUPTION EST N64.52 Nipple discharge NIPPLE DISCHARGE Diagnosis 02/23/2019 [facility] 09:55:00 AM Medical Cente r EST F17.210 Nicotine NICOTINE Diagnosis 01/10/2019 [facility] dependence, DEPENDENCE, 06:38:[address] cigarettes, CIGARETTES, EDT uncomplicated UNCOMPLICATED R52 Pain, unspecified PAIN, UNSPECIFIED Diagnosis 01/10/2019 [facility] 06:38:00 AM Medical Cente r EDT M79.18 MYALGIA, OTHER MYALGIA, OTHER Diagnosis 01/10/2019 [facility] SITE SITE 06:38:00 AM Medical Cente r EDT M54.2 Cervicalgia CERVICALGIA Diagnosis 01/10/2019 [facility] 06:38:00 AM Medical Cente r EDT Z72.0 Tobacco use TOBACCO USE Diagnosis 01/01/2019 [facility] 12:05:00 PM Medical Cente r EDT J20.9 Acute bronchitis, ACUTE BRONCHITIS, Diagnosis 01/01/2019 [facility] unspecified UNSPECIFIED 12:05:[address] EDT R05 Cough COUGH Diagnosis 01/01/2019 [facility] 12:05:00 PM Medical Cente r EDT M79.601 Pain in right arm PAIN IN RIGHT ARM Diagnosis 11/08/2018 [facility] 03:23:00 AM Medical Cente r EDT M79.602 Pain in left arm PAIN IN LEFT ARM Diagnosis 11/08/2018 [facility] 03:23:00 AM Medical [place] [facility] EDT Z00.00 Encounter for ENCNTR FOR GENERAL Diagnosis 11/08/2018 [facility] general adult ADULT MEDICAL EXAM 03:23:00 AM [facility] medical W/O ABNORMAL EDT examination FINDINGS without abnormal findings Results ID Date Data Source [id number] 08/05/2019 12:00:00 AM EDT [facility] Name Value Range Interpretation Code Description Data Keara rce(s) Supporting Document(s ) 2019-nCoV [facility] RNA XXX CHERY+probe- Imp This lab was [facility] and reported by [employer] ID Date Data Source HematologySpeci.[id number] 01/10/2019 08:45:00 AM EDT [facility] 0-0400 Name Value Range Interpretation Description Data Sup porting Code Source(s) Document(s ) C reactive < 3.0 Above high normal <content Saint protein styleCode="Bold" [facility] [Mass/volume] in >C-Reactive [facility] Serum or Plasma Protein Center </content>7.59 MG/L H<content styleCode="Itali cs"> (< 3.0 MG/L)</content> Erythrocyte < 20 Above high normal <content Saint sedimentation styleCode="Bold" [facility] rate by >Erythrocyte [facility] method Rate (ESR) </content>35 MM/hr H<content styleCode="Itali cs"> (< 20 MM/hr)</content> ID Date Data Source Urinalysis.[id number] 01/10/2019 08:30:00 AM EDT [facility] 0 Name Value Range Interpretation Description Data Sup porting Code Source(s) Document(s ) UNK CLEAR <content Saint styleCode="Epifanio Reynaldo d">Urine Medical Clarity Center </content>SHANNON R <content styleCode="Pelon lics"> (CLEAR )</content> Color of Urine YELLOW <content Saint styleCode="Epifanio Reynaldo d">Color, Medical Urine Center </content>YELL OW <content styleCode="Pelon lics"> (YELLOW )</content> Glucose NEGATIVE <content Saint [Mass/volume] styleCode="Epifanio Angeless in Urine by d">Urine Medical Test strip Glucose Center </content>NEGA TIVE MG/DL<content styleCode="Pelon lics"> (NEGATIVE MG/DL)</conten t> Specific 1.015-1.02 <content Saint gravity of 5 styleCode="Epifanio Jacobs Urine by Test d">Urine Medical strip Specific Center [place] </content>1.01 5 <content styleCode="Pelon lics"> (1.015-1.025 )</content> Ketones NEGATIVE <content Saint [Mass/volume] styleCode="Epifanio Angeless in Urine by d">Urine Medical Test strip Ketone Center </content>NEGA TIVE MG/DL<content styleCode="Pelon lics"> (NEGATIVE MG/DL)</conten t> Hemoglobin NEGATIVE <content Saint [Presence] in styleCode="Epifanio Angeless Urine by Test d">Urine Blood Medical strip </content>NEGA Center TIVE <content styleCode="Pelon lics"> (NEGATIVE )</content> UNK NEGATIVE <content Saint styleCode="Epifanio Angeless d">Urine Medical Bilirubin Center </content>NEGA TIVE <content styleCode="Pelon lics"> (NEGATIVE )</content> Urobilinogen 0.2-1.0 <content Saint [Units/volume] styleCode="Epifanio Angeless in Urine by d">Urine Medical Test strip Urobilinogen Center </content>0.2 MG/DL<content styleCode="Pelon lics"> (0.2-1.0 MG/DL)</conten t> pH of Urine by 4.5-8.0 <content Saint Test strip styleCode="Epifanio Angeless d">Urine pH Medical </content>7.0 Center <content styleCode="Pelon lics"> (4.5-8.0 )</content> Nitrite NEGATIVE <content Saint [Presence] in styleCode="Epifanio Jacobs Urine by Test d">Urine Medical strip Nitrite Center </content>NEGA TIVE <content styleCode="Pelon lics"> (NEGATIVE )</content> Protein NEGATIVE <content Saint [Mass/volume] styleCode="Epifanio Jacobs in Urine by d">Urine Medical Test strip Protein Center </content>NEGA TIVE MG/DL<content styleCode="Pelon lics"> (NEGATIVE MG/DL)</conten t> Leukocyte NEGATIVE <content Saint esterase styleCode="Epifanio Jacobs [Presence] in d">Urine Medical Urine by Test Leukocyte Center strip </content>NEGA TIVE <content styleCode="Pelon lics"> (NEGATIVE )</content> ID Date Data Source Liver 01/10/2019 08:30:00 AM EDT [facility] Profile.[id number] Name Value Range Interpretation Description Data Sup porting Code Source(s) Document(s ) Aspartate 14-36 <content Saint aminotransferase styleCode="Bold"> [facility] [Enzymatic Aspartate Medical activity/volume] Aminotransferase Center in Serum or Plasma (AST) </content>22 IU/L<content styleCode="Italic s"> (14-36 IU/L)</content> Alanine 7-30 <content [facility] aminotransferase styleCode="Bold"> [facility]y hs [Enzymatic Alanine Medical activity/volume] Aminotransferase Center in Serum or Plasma (ALT) </content>21 IU/L<content styleCode="Italic s"> (7-30 IU/L)</content> Bilirubin.total 0.2-1.3 <content Saint [Mass/volume] in styleCode="Bold"> [facility] hs Serum or Plasma Bilirubin Total Medical </content>0.4 Center MG/DL<content styleCode="Italic s"> (0.2-1.3 MG/DL)</content> Alkaline 38-126 <content [facility] phosphatase styleCode="Bold"> Reynaldo [Enzymatic Alkaline Medical activity/volume] Phosphatase (ALP) Cente r in Serum or Plasma </content>75 IU/L<content styleCode="Italic s"> (38-126 IU/L)</content> UNK 0.0-0.3 <content Saint styleCode="Bold"> Reynaldo Bilirubin, Direct Medical </content>< 0.2 Center MG/DL<content styleCode="Italic s"> (0.0-0.3 MG/DL)</content> Albumin 3.5-5.0 <content Saint [Mass/volume] in styleCode="Bold"> [facility] hs Serum or Plasma Albumin Medical </content>4.2 Center G/DL<content styleCode="Italic s"> (3.5-5.0 G/DL)</content> ID Date Data Source HematologyRou.[id number] 01/10/2019 08:30:00 AM EDT [facility] 0400 Name Value Range Interpretation Description Data Sup porting Code Source(s) Document(s ) Leukocytes 4.4-11.0 <content Saint [#/volume] in styleCode="Bold Reynaldo Blood by ">White Blood Medical Automated count Cell Count Center </content>10.94 KCUMM<content styleCode="Ital ics"> (4.4-11.0 KCUMM)</content > Erythrocyte mean 80.0-100 <content Saint corpuscular .0 styleCode="Bold Reynaldo volume [Entitic ">Mean Medical volume] by Corpuscular Center Automated count Volume </content>86.6 FL<content styleCode="Ital ics"> (80.0-100.0 FL)</content> Erythrocyte mean 26.0-34. <content Saint corpuscular 0 styleCode="Bold Reynaldo hemoglobin ">Mean Medical [Entitic mass] Corposcular Center by Automated Hemoglobin count </content>27.8 PG<content styleCode="Ital ics"> (26.0-34.0 PG)</content> Erythrocytes 4.0-5.1 <content Saint [#/volume] in styleCode="Bold Reynaldo Blood by ">Red Blood Medical Automated count Cell Count Center </content>4.25 MCUMM<content styleCode="Ital ics"> (4.0-5.1 MCUMM)</content > Hemoglobin 12.3-16. Below low normal <content Saint [Mass/volume] in 0 styleCode="Bold Reynaldo Blood ">Hemoglobin Medical </content>11.8 Center G/DL L<content styleCode="Ital ics"> (12.3-16.0 G/DL)</content> Hematocrit 36.0-46. <content Saint [Volume 0 styleCode="Bold Reynaldo Fraction] of ">Hematocrit Medical Blood by </content>36.8 Center Automated count %<content styleCode="Ital ics"> (36.0-46.0 %)</content> Platelet mean 8.0-11.0 <content Saint volume [Entitic styleCode="Bold Reynaldo volume] in Blood ">Mean Platelet Medical by Automated Volume Center count </content>9.8 FL<content styleCode="Ital ics"> (8.0-11.0 FL)</content> Erythrocyte mean 32.0-37. <content Saint corpuscular 0 styleCode="Bold Reynaldo hemoglobin ">Mean Corpus. Medical concentration Hgb Center [Mass/volume] by Concentration Automated count (MCHC) </content>32.1 G/DL<content styleCode="Ital ics"> (32.0-37.0 G/DL)</content> Erythrocyte 11.5-14. <content Saint distribution 5 styleCode="Bold Reynaldo width [Ratio] by ">Red Cell Medical Automated count Distribution Center Width </content>13.6 %<content styleCode="Ital ics"> (11.5-14.5 %)</content> Platelets 130-400 <content Saint [#/volume] in styleCode="Bold Reynaldo Blood by ">Platelet Medical Automated count Count Center </content>340 KCUMM<content styleCode="Ital ics"> (130-400 KCUMM)</content > UNK 0.0 <content Saint styleCode="Bold Reynaldo ">Nucleated Red Medical Blood Cell Center Count </content>0.00 KCUMM<content styleCode="Ital ics"> (0.0 KCUMM)</content > UNK 0 <content Saint styleCode="Bold Reynaldo ">Nucleated Red Medical Blood Cell Center </content>0.0 /100<content styleCode="Ital ics"> (0 /100)</content> ID Date Data Source GFR(Creatinine).[id number] 01/10/2019 08:30:00 AM EDT [facility] 0-0400 Name Value Range Interpretation Code Description Data Keara rce(s) Supporting Document(s ) UNK > 60 <content Reynaldo styleCode="Bold"> Medical Cent er EGFR </content>123 GFR<content styleCode="Italic s"> (> 60 GFR)</content> ID Date Data Source CHMROUTINECCDA.[id number] 01/10/2019 08:30:00 AM EDT [facility] -0400 Name Value Range Interpretation Description Data Sup porting Code Source(s) Document(s ) Cannabinoids <content Saint [Presence] in styleCode="Epifanio Angeless Urine by Screen d">Cannabinoid Medical method >50 s Center ng/mL </content>NEGA TIVE NG/ML (Reference Range: not available)<br/ > Lipase 23-300 <content Saint [Enzymatic styleCode="Epifanio Reynaldo activity/volume d">Lipase Medical ] in Serum or </content>53 Center Plasma IU/L<content styleCode="Pelon lics"> (23-300 IU/L)</content > ID Date Data Source CardiacMarkers.[id number] 01/10/2019 08:30:00 AM EDT [facility] -0400 Name Value Range Interpretation Description Data Sup porting Code Source(s) Document(s ) Creatine 30-135 <content Saint kinase styleCode="Bold Reynaldo [Enzymatic ">CK Medical activity/vol </content>96 Center ume] in IU/L<content Serum or styleCode="Ital Plasma ics"> (30-135 IU/L)</content> Troponin < 0.034 <content Saint I.cardiac styleCode="Bold Reynaldo [Mass/volume ">Troponin I Medical ] in Serum </content>< Center or Plasma 0.012 NG/ML<content styleCode="Ital ics"> (< 0.034 NG/ML)</content > ID Date Data Source [facility].[id number] 01/10/2019 08:30:00 AM EDT [facility] Center Name Value Range Interpretation Description Data Sup porting Code Source(s) Document(s ) Sodium 137-145 <content Saint [Moles/volume] in styleCode="Bold"> [facility] Serum or Plasma Sodium Medical </content>141 Center MEQ/L<content styleCode="Italic s"> (137-145 MEQ/L)</content> Carbon dioxide, 22-30 <content Saint total styleCode="Bold"> Reynaldo [Moles/volume] in Carbon Dioxide Medical Serum or Plasma </content>25 Center MEQ/L<content styleCode="Italic s"> (22-30 MEQ/L)</content> Chloride 98-107 Above high <content Saint [Moles/volume] in normal styleCode="Bold"> [facility] Serum or Plasma Chloride Medical </content>108 Center MEQ/L H<content styleCode="Italic s"> (98-107 MEQ/L)</content> Potassium 3.5-5.3 <content Saint [Moles/volume] in styleCode="Bold"> [facility] Serum or Plasma Potassium Medical </content>4.4 Center MEQ/L<content styleCode="Italic s"> (3.5-5.3 MEQ/L)</content> UNK 7-17 <content Saint styleCode="Bold"> Reynaldo BUN </content>7 Medical MG/DL<content Center styleCode="Italic s"> (7-17 MG/DL)</content> Calcium 8.4-10. <content Saint [Mass/volume] in 2 styleCode="Bold"> [facility] hs Serum or Plasma Calcium Medical </content>9.5 Center MG/DL<content styleCode="Italic s"> (8.4-10.2 MG/DL)</content> UNK > 60 <content Saint styleCode="Bold"> Reynaldo EGFR Medical </content>123 Center GFR<content styleCode="Italic s"> (> 60 GFR)</content> Creatinine 0.5-1.3 <content Saint [Mass/volume] in styleCode="Bold"> [facility] hs Serum or Plasma Creatinine Medical </content>0.6 Center MG/DL<content styleCode="Italic s"> (0.5-1.3 MG/DL)</content> Glucose 74-106 Above high <content Saint [Mass/volume] in normal styleCode="Bold"> [facility] hs Serum or Plasma Glucose Medical </content>114 Center MG/DL H<content styleCode="Italic s"> (74-106 MG/DL)</content> Aspartate 14-36 <content Saint aminotransferase styleCode="Bold"> Jeffy hs [Enzymatic Aspartate Medical activity/volume] Aminotransferase Center in Serum or Plasma (AST) </content>22 IU/L<content styleCode="Italic s"> (14-36 IU/L)</content> Albumin 3.5-5.0 <content Saint [Mass/volume] in styleCode="Bold"> [facility]y hs Serum or Plasma Albumin Medical </content>4.2 Center G/DL<content styleCode="Italic s"> (3.5-5.0 G/DL)</content> Alanine 7-30 <content Saint aminotransferase styleCode="Bold"> [facility]y hs [Enzymatic Alanine Medical activity/volume] Aminotransferase Center in Serum or Plasma (ALT) </content>21 IU/L<content styleCode="Italic s"> (7-30 IU/L)</content> Alkaline 38-126 <content Saint phosphatase styleCode="Bold"> Reynaldo [Enzymatic Alkaline Medical activity/volume] Phosphatase (ALP) Cente r in Serum or Plasma </content>75 IU/L<content styleCode="Italic s"> (38-126 IU/L)</content> Bilirubin.total 0.2-1.3 <content Saint [Mass/volume] in styleCode="Bold"> [facility] hs Serum or Plasma Bilirubin Total Medical </content>0.4 Center MG/DL<content styleCode="Italic s"> (0.2-1.3 MG/DL)</content> ID Date Data Source Urinalysis.[id number] 11/08/2018 04:16:00 AM EDT [facility] 0 Name Value Range Interpretation Description Data Sup porting Code Source(s) Document(s ) Color of Urine YELLOW <content Saint styleCode="Epifanio Reynaldo d">Color, Medical Urine Center </content>YELL OW <content styleCode="Pelon lics"> (YELLOW )</content> UNK CLEAR <content Saint styleCode="[facility] d">Urine Medical Clarity Center </content>SHANNON R <content styleCode="Pelon lics"> (CLEAR )</content> Specific 1.015-1.02 Below low normal <content Saint gravity of 5 styleCode="Epifanio [facility] Urine by Test d">Urine Medical strip Specific Center [place] </content>1.01 0 L<content styleCode="Pelon lics"> (1.015-1.025 )</content> Glucose NEGATIVE <content Saint [Mass/volume] styleCode="Epifanio Angeless in Urine by d">Urine Medical Test strip Glucose Center </content>NEGA TIVE MG/DL<content styleCode="Pelon lics"> (NEGATIVE MG/DL)</conten t> Ketones NEGATIVE <content Saint [Mass/volume] styleCode="Epifanio Reynaldo in Urine by d">Urine Medical Test strip Ketone Center </content>NEGA TIVE MG/DL<content styleCode="Pelon lics"> (NEGATIVE MG/DL)</conten t> UNK NEGATIVE <content Saint styleCode="Epifanio Reynaldo d">Urine Medical Bilirubin Center </content>NEGA TIVE <content styleCode="Pelon lics"> (NEGATIVE )</content> pH of Urine by 4.5-8.0 <content Saint Test strip styleCode="Epifanio Angeless d">Urine pH Medical </content>7.0 Center <content styleCode="Pelon lics"> (4.5-8.0 )</content> Protein NEGATIVE <content Saint [Mass/volume] styleCode="Epifanio Angeless in Urine by d">Urine Medical Test strip Protein Center </content>NEGA TIVE MG/DL<content styleCode="Pelon lics"> (NEGATIVE MG/DL)</conten t> Urobilinogen 0.2-1.0 <content Saint [Units/volume] styleCode="Epifanio Angeless in Urine by d">Urine Medical Test strip Urobilinogen Center </content>0.2 MG/DL<content styleCode="Pelon lics"> (0.2-1.0 MG/DL)</conten t> Hemoglobin NEGATIVE <content Saint [Presence] in styleCode="Epifanio Jacobs Urine by Test d">Urine Blood Medical strip </content>NEGA Center TIVE <content styleCode="Pelon lics"> (NEGATIVE )</content> Nitrite NEGATIVE <content Saint [Presence] in styleCode="Epifanio Jacobs Urine by Test d">Urine Medical strip Nitrite Center </content>NEGA TIVE <content styleCode="Pelon lics"> (NEGATIVE )</content> Leukocyte NEGATIVE <content Saint esterase styleCode="Epifanio Jacobs [Presence] in d">Urine Medical Urine by Test Leukocyte Center strip </content>NEGA TIVE <content styleCode="Pelon lics"> (NEGATIVE )</content> ID Date Data Source HematologyRou.[id number] 11/08/2018 03:59:00 AM EDT [facility] 0400 Name Value Range Interpretation Description Data Sup porting Code Source(s) Document(s ) Hemoglobin 12.3-16. Below low normal <content Saint [Mass/volume] in 0 styleCode="Bold [facility] Blood ">Hemoglobin Medical </content>11.4 Center G/DL L<content styleCode="Ital ics"> (12.3-16.0 G/DL)</content> Erythrocytes 4.0-5.1 <content [facility] [#/volume] in styleCode="Bold Reynaldo Blood by ">Red Blood Medical Automated count Cell Count Center </content>4.11 MCUMM<content styleCode="Ital ics"> (4.0-5.1 MCUMM)</content > Leukocytes 4.4-11.0 <content Saint [#/volume] in styleCode="Bold Reynaldo Blood by ">White Blood Medical Automated count Cell Count Center </content>9.81 KCUMM<content styleCode="Ital ics"> (4.4-11.0 KCUMM)</content > Hematocrit 36.0-46. Below low normal <content Saint [Volume 0 styleCode="Bold Reynaldo Fraction] of ">Hematocrit Medical Blood by </content>35.2 Center Automated count % L<content styleCode="Ital ics"> (36.0-46.0 %)</content> Erythrocyte mean 26.0-34. <content [facility] corpuscular 0 styleCode="Bold Reynaldo hemoglobin ">Mean Medical [Entitic mass] Corposcular Center by Automated Hemoglobin count </content>27.7 PG<content styleCode="Ital ics"> (26.0-34.0 PG)</content> Erythrocyte mean 80.0-100 <content [facility] corpuscular .0 styleCode="Bold Reynaldo volume [Entitic ">Mean Medical volume] by Corpuscular Center Automated count Volume </content>85.6 FL<content styleCode="Ital ics"> (80.0-100.0 FL)</content> Erythrocyte 11.5-14. <content [facility] distribution 5 styleCode="Bold Reynaldo width [Ratio] by ">Red Cell Medical Automated count Distribution Center Width </content>13.9 %<content styleCode="Ital ics"> (11.5-14.5 %)</content> Erythrocyte mean 32.0-37. <content [facility] corpuscular 0 styleCode="Bold Reynaldo hemoglobin ">Mean Corpus. Medical concentration Hgb Center [Mass/volume] by Concentration Automated count (MCHC) </content>32.4 G/DL<content styleCode="Ital ics"> (32.0-37.0 G/DL)</content> Platelets 130-400 <content Saint [#/volume] in styleCode="Bold Reynaldo Blood by ">Platelet Medical Automated count Count Center </content>330 KCUMM<content styleCode="Ital ics"> (130-400 KCUMM)</content > UNK 0.0 <content Saint styleCode="Bold Reynaldo ">Nucleated Red Medical Blood Cell Center Count </content>0.00 KCUMM<content styleCode="Ital ics"> (0.0 KCUMM)</content > UNK 0 <content Saint styleCode="Bold Reynaldo ">Nucleated Red Medical Blood Cell Center </content>0.0 /100<content styleCode="Ital ics"> (0 /100)</content> Platelet mean 8.0-11.0 <content Saint volume [Entitic styleCode="Bold [facility] volume] in Blood ">Mean Platelet Medical by Automated Volume Center count </content>9.1 FL<content styleCode="Ital ics"> (8.0-11.0 FL)</content> ID Date Data Source GFR(Creatinine).[id number] 11/08/2018 03:59:00 AM EDT [facility] 0-0400 Name Value Range Interpretation Code Description Data Keara rce(s) Supporting Document(s ) UNK > 60 <content [facility] styleCode="Bold"> Medical Cent er EGFR </content>103 GFR<content styleCode="Italic s"> (> 60 GFR)</content> ID Date Data Source Coagulation 11/08/2018 03:59:00 AM [facility] ical Center Rout.[id number] EDT Name Value Range Interpretation Code Description Data Keara rce(s) Supporting Document(s ) UNK < 500 <content [facility] styleCode="Bold"> Medical Cent er D-Dimer </content>207 ngFEU<content styleCode="Italic s"> (< 500 ngFEU)</content> ID Date Data Source CardiacMarkers.[id number] 11/08/2018 03:59:00 AM EDT [facility] -0400 Name Value Range Interpretation Description Data Sup porting Code Source(s) Document(s ) Troponin < 0.034 <content [facility] I.cardiac styleCode="Shelby Reynaldo [Mass/volume ">Troponin I Medical ] in Serum </content>< Center or Plasma 0.012 NG/ML<content styleCode="Ital ics"> (< 0.034 NG/ML)</content > ID Date Data Source BMP.[id number] 11/08/2018 03:59:00 AM EDT [facility] Name Value Range Interpretation Description Data Sup porting Code Source(s) Document(s ) Sodium 137-145 <content [facility] [Moles/volume] styleCode="Epifanio Reynaldo in Serum or d">Sodium Medical Plasma </content>139 Center MEQ/L<content styleCode="Pelon lics"> (137-145 MEQ/L)</conten t> Potassium 3.5-5.3 <content [facility] [Moles/volume] styleCode="Epifanio Reynaldo in Serum or d">Potassium Medical Plasma </content>4.0 Center MEQ/L<content styleCode="Pelon lics"> (3.5-5.3 MEQ/L)</conten t> Chloride 98-107 <content [facility] [Moles/volume] styleCode="Epifanio Reynaldo in Serum or d">Chloride Medical Plasma </content>106 Center MEQ/L<content styleCode="Pelon lics"> (98-107 MEQ/L)</conten t> Creatinine 0.5-1.3 <content [facility] [Mass/volume] styleCode="Epifanio Reynaldo in Serum or d">Creatinine Medical Plasma </content>0.7 Center MG/DL<content styleCode="Pelon lics"> (0.5-1.3 MG/DL)</conten t> Glucose 74-106 Above high normal <content [facility] [Mass/volume] styleCode="Epifanio Reynaldo in Serum or d">Glucose Medical Plasma </content>110 Center MG/DL H<content styleCode="Pelon lics"> (74-106 MG/DL)</conten t> Calcium 8.4-10.2 <content [facility] [Mass/volume] styleCode="Epifanio Angeless in Serum or d">Calcium Medical Plasma </content>9.2 Center MG/DL<content styleCode="Pelon lics"> (8.4-10.2 MG/DL)</conten t> Carbon 22-30 <content [facility] dioxide, total styleCode="Epifanio Reynaldo [Moles/volume] d">Carbon Medical in Serum or Dioxide Center Plasma </content>26 MEQ/L<content styleCode="Pelon lics"> (22-30 MEQ/L)</conten t> UNK 7-17 <content Saint styleCode="Epifanio Angeless d">BUN Medical </content>9 Center MG/DL<content styleCode="Pelon lics"> (7-17 MG/DL)</conten t> UNK > 60 <content Saint styleCode="Epifanio Angeless d">EGFR Medical </content>103 Center GFR<content styleCode="Pelon lics"> (> 60 GFR)</content> Procedure Social History Code Duration Value Status Description Data Source(s ) Smoking 04/22/2019 Occasional Smoker completed Occasional Smoker [facility] 10:11:00 PM EST Medical C enter Smoking 02/23/2019 Occasional Smoker completed Occasional Smoker [facility] 10:28:00 AM EST Medical C enter Smoking 02/23/2019 Occasional Smoker completed Occasional Smoker [facility] 10:05:00 AM EST Medical C enter Smoking 01/10/2019 Daily Smoker completed Daily Smoker [facility] 08:12:00 AM EDT Medical C enter Smoking 01/10/2019 Daily Smoker completed Daily Smoker [facility] 06:48:00 AM EDT Medical C enter Smoking 01/10/2019 Daily Smoker completed Daily Smoker [facility] 06:44:00 AM EDT Medical C enter Smoking 01/01/2019 Daily Smoker completed Daily Smoker [facility] 12:31:00 PM EDT Medical C enter Smoking 01/01/2019 Daily Smoker completed Daily Smoker [facility] 12:24:00 PM EDT Medical C enter Smoking 01/01/2019 Daily Smoker completed Daily Smoker [facility] 12:12:00 PM EDT Medical C enter Smoking 11/08/2018 Daily Smoker completed Daily Smoker [facility] 03:45:00 AM EDT Medical C enter Smoking 11/08/2018 Daily Smoker completed Daily Smoker [facility] 03:45:00 AM EDT Medical C enter Vital Signs ID Date Data Source UNK Name Value Range Interpretation Code Description Data Source(s) Body temperature 36.915884 36.902427 [facility] Respiratory rate 16 /min 16 /min [facility] Oxygen saturation 98 % 98 % [facility] Arterial blood [facility] by Pulse oximetry Heart rate 61 /min 61 /min [facility] Diastolic blood 78 mm[Hg] 78 mm[Hg] [facility] pressure [facility] Systolic blood 135 mm[Hg] 135 mm[Hg] [facility] Body weight 108.505699 108.211811 kg [facility] Measured kg Medical Center Body temperature 36.317367 36.973348 [facility] Respiratory rate 16 /min 16 /min [facility] Oxygen saturation 98 % 98 % [facility] blood [facility] by Pulse oximetry Heart rate 63 /min 63 /min [facility] Body height 157.125559 157.135217 cm [facility] Diastolic blood 77 mm[Hg] 77 mm[Hg] [facility] pressure Medical Center Systolic blood 140 mm[Hg] 140 mm[Hg] Psychiatric Center Body mass index 43.8 kg/m2 43.8 kg/m2 [facility] (BMI) [Ratio] Medical [facility] ter Body temperature 36.020084 36.430696 [facility] Respiratory rate 16 /min 16 /min [facility] Oxygen saturation 98 % 98 % [facility] by Pulse oximetry Heart rate 74 /min 74 /min [facility] Diastolic blood 74 mm[Hg] 74 mm[Hg] [facility] pressure [facility] Systolic blood 113 mm[Hg] 113 mm[Hg] Psychiatric Center Body temperature 36.647332 36.560651 [facility] Respiratory rate 18 /min 18 /min [facility] Oxygen saturation 98 % 98 % [facility] by Pulse oximetry Heart rate 76 /min 76 /min [facility] Diastolic blood 78 mm[Hg] 78 mm[Hg] [facility] Systolic blood 122 mm[Hg] 122 mm[Hg] [facility] Body temperature 37.578204 37.868747 [facility] Respiratory rate 18 /min 18 /min [facility] Oxygen saturation 97 % 97 % [facility] Arterial blood Medical Center by Pulse oximetry Heart rate 88 /min 88 /min [facility] Diastolic blood 68 mm[Hg] 68 mm[Hg] [facility] Systolic blood 118 mm[Hg] 118 mm[Hg] [facility] Body temperature 36.133198 36.587486 [facility] Respiratory rate 17 /min 17 /min [facility] Oxygen saturation 98 % 98 % [facility] Arterial blood [facility] by Pulse oximetry Heart rate 89 /min 89 /min [facility] Diastolic blood 104 mm[Hg] 104 mm[Hg] [facility] Systolic blood 149 mm[Hg] 149 mm[Hg] [facility] Respiratory rate 16 /min 16 /min [facility] Body weight 110.653500 110.929924 kg [facility] kg [facility] Body temperature 36.412087 36.884090 [facility] Respiratory rate 19 /min 19 /min [facility] Oxygen saturation 100 % 100 % [facility] Arterial blood [facility] Center by Pulse oximetry Heart rate 69 /min 69 /min [facility] Diastolic blood 84 mm[Hg] 84 mm[Hg] [facility] Systolic blood 144 mm[Hg] 144 mm[Hg] [facility] Body temperature 36.485747 36.766200 [facility] Respiratory rate 18 /min 18 /min [facility] Oxygen saturation 98 % 98 % [facility] blood [facility] by Pulse oximetry Heart rate 85 /min 85 /min [facility] Diastolic blood 97 mm[Hg] 97 mm[Hg] [facility] Systolic blood 150 mm[Hg] 150 mm[Hg] [facility] Patient Treatment Plan of Care Planned Activity Planned Date Details Description Data Source (s) Clindamycin 300 MG Oral [facility] Betamethasone 0.5 MG/ML / [facility] Clotrimazole 10 MG/ML Topical Center Cream Naproxen 500 MG Oral Tablet [facility] Acetaminophen 325 MG Oral [facility] 12 HR Dextromethorphan [facility] Hydrobromide 30 MG / Center Guaifenesin 600 MG Extended Release Oral Tablet Azithromycin 500 MG Oral [facility] Ibuprofen 400 MG Oral Tablet [facility]
--- NOTE | 2019-12-12 20:24 | PDOC ---
History of Present Illness - General Chief Complaint: Pain Stated Complaint: ABD PAIN Time Seen by Provider: 12/12/19 20:23 - History of Present Illness Initial Comments: 33y F , hx of kidney stones, gall stnoes sp cholecystecomty, ovarian cysts presents with right sided abdominal pain since today. Patient reports that pain is located along right flank, RUQ, and epigastrum, 10/10 in intensity, shock like in quality, , patient has not taken anything for it. Denies radiation to back. Patient has h/o cholecystectomy, still has appendix. Denies drinking or recreational drug use however confirms smoking (1 ppd). Denies CP, SOB, N/V/D, fever or chills, pain or burning with urination, changes in bowel habits, blood in stool or in urine. Constitutional: No Weight Change, No Fever, No Chills, No Night Sweats, No Fatigue, No Malaise ENT/Mouth: No Hearing Changes, No Ear Pain, No Nasal Congestion, No Sinus Pain, No Hoarseness, No sore throat, No Rhinorrhea, No Swallowing Difficulty Eyes: No Eye Pain, No Swelling, No Redness, No Foreign Body, No Discharge, No Vision Changes Cardiovascular: No Chest Pain, No SOB, No PND, No Dyspnea on Exertion, No Orthopnea, No Claudication, No Edema, No Palpitations Respiratory: No Cough, No Sputum, No Wheezing, No Smoke Exposure, No Dyspnea Gastrointestinal: No Nausea, No Vomiting, No Diarrhea, No Constipation, + Pain, No Heartburn, No Anorexia, No Dysphagia, No Hematochezia, No Melena, No Flatulence, No Jaundice Genitourinary: No Dysmenorrhea, No DUB, No Dyspareunia, No Dysuria, No Urinary Frequency, No Hematuria, No Urinary Incontinence, No Urgency, No Flank Pain, No Urinary Flow Changes, No Hesitancy Musculoskeletal: No Arthralgias, No Myalgias, No Joint Swelling, No Joint Stiffness, No Back Pain, No Neck Pain, No Injury History Skin: No Skin Lesions, No Pruritis, No Hair Changes, No Breast/Skin Changes, No Nipple Discharge Neuro: No Weakness, No Numbness, No Paresthesias, No Loss of Consciousness, No Syncope, No Dizziness, No Headache, No Coordination Changes, No Recent Falls Psych: No Anxiety/Panic, No Depression, No Insomnia, No Personality Changes, No Delusions, No Rumination, No SI/HI/AH/VH, No Social Issues, No Memory Changes, No Violence/Abuse Hx., No Eating Concerns Heme/Lymph: No Bruising, No Bleeding, No Transfusions History, No Lymphade nopathy Endocrine: No Polyuria, No Polydipsia, No Temperature Intolerance 12/12/19 20:35 Past History - Medical History Allergies/Adverse Reactions: Allergies Allergy/AdvReac Type Severity Reaction Status Date / Time No Known Allergies Allergy Verified 03/07/19 18:12 Home Medications: Ambulatory Orders NK [No Known Home Medication] 05/22/19 Anemia: Yes (b12) Asthma: No Cancer: No Cardiac Disorders: No CVA: No COPD: No CHF: No DVT: No Dementia: No Diabetes: No GI Disorders: Yes (GERD) Disorders: No HTN: No Hypercholesterolemia: No Liver Disease: No Psychiatric Problems: Yes (ANXIETY) Seizures: No Thyroid Disease: No - Surgical History Abdominal Surgery: No Appendectomy: No Cardiac Surgery: No Cholecystectomy: Yes GI Surgery: Yes (Cholecystectomy,) Lung Surgery: No Neurologic Surgery: No Orthopedic Surgery: No - Reproductive History Is Patient Now?: No Cervical CA: No Dysfunctional Uterine Bleeding: No Ectopic : No Endometrial CA: No Therapeutic (s) & number: No Tubal Ligation: Yes - Immunization History Immunization Up to Date: Yes - Psycho-Social/Smoking History Smoking Status: Yes Smoking History: Current some day smoker Have you smoked in the past 12 months: Yes Number of Cigarettes Smoked Daily: 1 Cigars Per Day: 0 Information on smoking cessation initiated: Yes 'Breaking Loose' booklet given: 08/22/16 - Substance Abuse Hx (Audit-C & DAST Scrn) How often the patient has a drink containing alcohol: Never Score: In Men: 4 or > Positive; In Women: 3 or > Positive: 0 Screen Result (Pos requires Nsg. Audit-10AR): Negative *Physical Exam - Vital Signs Last Vital Signs Temp Pulse Resp BP Pulse Ox 98.4 F 104 H 20 134/99 99 12/12/19 19:59 12/12/19 19:59 12/12/19 19:59 12/12/19 19:59 12/12/19 19:59 - Physical Exam General Appearance: Yes: Appropriately Dressed, Mild Distress, Other HEENT: positive: EOMI, ARLETH, Normal ENT Inspection Neck: positive: Trachea midline, Normal Thyroid Respiratory/Chest: positive: Lungs Clear, Normal Breath Sounds Cardiovascular: positive: Regular Rhythm, Regular Rate, S1, S2 Gastrointestinal/Abdominal: positive: Tender, Flat, Tenderness Rectal Exam: positive: normal exam Musculoskeletal: positive: Normal Inspection, CVA Tenderness Extremity: positive: Normal Capillary Refill, Normal Inspection, Normal Range of Motion Integumentary: positive: Normal Color, Dry, Warm Neurologic: 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: 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, Fully Oriented, Alert, Normal Mood/Affect, Normal Response, Motor Strength 07/26 ED Treatment Course - LABORATORY CBC & Chemistry Diagram: 12/12/19 21:11 12/12/19 21:11 Medical Decision Making - Medical Decision Making 34 YOF h/o cholecystectomy, gastritis, esophageal spasm with abdominal pain of one day - vitals wnl - exam reveals ttp in RUQ and epigastrum - gastritis vs PUD vs pancreatitis vs gas - CBC, CMP, lipase, 1g tylenol, GI cocktail reassess: labs wnl, patient reports sx have improved Discharge - Discharge Information Problems reviewed: Yes Clinical Impression/Diagnosis: Abdominal pain - Admission No - Follow up/Referral Referrals: Bridgett Valencia MD [Primary Care Provider] - - Patient Discharge Instructions Patient Printed Discharge Instructions: Acute Abdominal Pain, DI for Abdominal Pain-Adult Additional Instructions: You were seen in the emergency department for abdominal pain. You received labs and medications to treat your symptoms. Your labs were unremarkable. You reported that your symptoms had improved. You were considered medically stable and safe to return home. Please return to the ER if your condition worsens, or if you experience chest pain, shortness of breath, vomiting, fever, chills, blood in urine or stool. - Post Discharge Activity
[2019-12-12] MEDS ORDERED: ACETAMINOPHEN 1000 MG/100 ML VIAL (NON FORMULARY) IVPB ONE (20:43)
[2019-12-12] MEDS ORDERED: FAMOTIDINE 20 MG TABLET PO ONE (20:59)
[2019-12-12] MEDS ORDERED: MAG HYDROX/AL HYDROX/SIMETH 30 ML UNIT-DOSE CUP PO ONE (20:59)
[2019-12-12] MEDS ORDERED: SODIUM CHLORIDE 1,000 ML IV SCH (21:00)
[2019-12-12] MEDS ORDERED: ACETAMINOPHEN INJECTION 100 ML IVPB ONE (21:07)
[2019-12-12] MEDS ORDERED: FAMOTIDINE 20 MG TABLET ONE (21:07)
[2019-12-12] MEDS ORDERED: MAG HYDROX/AL HYDROX/SIMETH 30 ML UNIT-DOSE CUP ONE (21:08)
--- NOTE | 2019-12-12 21:26 | PDOC ---
Documentation entered by Kady Gomez SCRIBE, acting as scribe for Deirdre Torrez MD. Deirdre Torrez MD: This documentation has been prepared by the leoraibePatricia Sydney, SCRIBE, under my direction and personally reviewed by me in its entirety. I confirm that the documentation accurately reflects all work, treatment, procedures, and medical decision making performed by me. Attending Attestation - Resident Resident Name: ConnerChay lin - ED Attending Attestation I have performed the following: I have examined & evaluated the patient, The case was reviewed & discussed with the resident, I agree w/resident's findings & plan, Exceptions are as noted - HPI HPI: 12/12/19 20:52 Patient is a 33 year old female with a significant past medical history of kidney stones, gallstones (s/p cholecystectomy), ovarian cysts who presents to the ED with one day of right-sided abdominal pain. As per patient, her 10/10 pain is located in her RUQ, epigastrum, and right flank, where she describes her symptoms as shock-like. Patient states she has not taken anything for her symptoms. Denies headache, fever, chills, shortness of breath, chest pain, nausea, vomiting, diarrhea, or urinary changes. Allergies: NKDA PCP: Dr. Valencia - Physicial Exam PE: 12/12/19 21:20 GENERAL: +morbidly obese Well-appearing, well-nourished. No apparent distress. HEENT: Normocephalic, atraumatic. PERRL, EOM intact. CARDIOVASCULAR: Normal S1, S2. Regular rate and rhythm. PULMONARY: Clear to auscultation bilaterally. ABDOMEN: Soft, non-distended, non-tender. EXTREMITIES: Normal ROM in all four extremities. No gross deformities. SKIN: Warm, dry. No rash NEUROLOGICAL: No focal neurological deficits. - Medical Decision Making 12/12/19 21:23 Pt states that she has GERD and that she had a cholecystectomy 2 yrs ago. Now with some RUQ sharp pain that goes back and forth across her abdomen. It is gone now. No fever, no vomiting and no flank pain Pt has no pain now. She moves her bowels, but eats meat and not enough vegies and fruits. Pt is obese. Pt did no heavy lifting Pt wants a couple days off work and skipped work today. Pt counseled to eat more healthfully and to attempt to eat smaller meals Pt admits she has gained weight recently. 12/12/19 22:56 lABS NORAML. ekg nsr; hr 64. <ShanDeirdre - Last Filed: 12/12/19 22:56> Discharge <Deirdre Torrez - Last Filed: 12/12/19 22:56> - Discharge Information Problems reviewed: Yes <Lynsey French - Last Filed: 12/12/19 23:39> - Discharge Information Clinical Impression/Diagnosis: Abdominal pain - Follow up/Referral Referrals: Bridgett Valencia MD [Primary Care Provider] - - Patient Discharge Instructions Patient Printed Discharge Instructions: Acute Abdominal Pain, DI for Abdominal Pain-Adult Additional Instructions: You were seen in the emergency department for abdominal pain. You received labs and medications to treat your symptoms. Your labs were unremarkable. You reported that your symptoms had improved. You were considered medically stable and safe to return home. Please return to the ER if your condition worsens, or if you experience chest pain, shortness of breath, vomiting, fever, chills, blood in urine or stool. - Post Discharge Activity Work/Back to School Note: Back to Work
[2019-12-12 21:56] LABS: BASO % 0.4 % (0-2.0); EOS % 2.1 % (0-4.5); HEMATOCRIT 33.9 % (32.4-45.2); HEMOGLOBIN 11.3 GM/dL (10.7-15.3); LYMPH % 23.8 % (8-40); MCH 28.4 pg (25.7-33.7); MCHC 33.5 g/dl (32.0-36.0); MEAN CELL VOLUME 84.8 fl (80-96); MEAN PLT VOLUME 8.3 fl (7.5-11.1); MONO % 7.5 % (3.8-10.2); NEUT % 66.2 % (42.8-82.8); PLATELET COUNT 314 K/MM3 (134-434); RDW 14.1 % (11.6-15.6)
[2019-12-12 22:22] LABS: ALBUMIN 3.4 g/dl (3.4-5.0); ALK PHOS 89 U/L (45-117); ANION GAP 5 MMOL/L (8-16); BILIRUBIN,TOTAL 0.4 mg/dL (0.2-1); BLOOD UREA NITROGEN 12.5 mg/dL (7-18); CALCIUM 8.7 mg/dL (8.5-10.1); CHLORIDE 108 mmol/L (98-107); CO2 27 mmol/L (21-32); CREATININE 0.8 mg/dL (0.55-1.3); GLUCOSE,RANDOM 92 mg/dL (74-106); LIPASE 119 U/L (73-393); POTASSIUM 4.2 mmol/L (3.5-5.1); SGOT/AST 16 U/L (15-37); SGPT/ALT 26 U/L (13-61); SODIUM 141 mmol/L (136-145); TOT PROT 6.8 g/dl (6.4-8.2)
[2019-12-12 23:49] LABS: PH,URINE 5.5 (5.0-8.0); URINE APPEARANCE CLEAR; URINE BILIRUBIN NEGATIVE (NEGATIVE); URINE COLOR YELLOW; URINE GLUCOSE (UA) NEGATIVE (NEGATIVE); URINE KETONE NEGATIVE (NEGATIVE); URINE LEUK ESTERASE NEGATIVE (NEGATIVE); URINE NITRITE NEGATIVE (NEGATIVE); URINE PROTEIN NEGATIVE (NEGATIVE)
--- NOTE | 2019-12-13 10:13 | EKG ---
Test Reason : Blood Pressure : / mmHG Vent. Rate : 064 BPM Atrial Rate : 064 BPM P-R Int : 154 ms QRS Dur : 104 ms QT Int : 408 ms P-R-T Axes : 030 061 037 degrees QTc Int : 420 ms NORMAL SINUS RHYTHM NORMAL ECG WHEN COMPARED WITH ECG OF 24-MAR-2019 14:54, T WAVE VARIATION Confirmed by PILO MUNOZ MD ([id number]) on 12/13/2019 10:13:13 AM Referred By: Confirmed By:PILO MUNOZ MD
== END 2019-12-12 23:29 | disposition home or self-care (01) ==
LOC: JER 19:56
PROC: 3E0333Z Introduction of Anti-inflammatory into Peripheral Vein, Percutaneous Approach (ICD-10-PCS; principal; 2019-12-12)
DX: R10.9 Unspecified abdominal pain (principal)
CPT/HCPCS: 36415; 80053; 81003; 82550; 82553; 82962; 83690; 84484; 84703; 85025; 87086; 93005; 93010; 99284-25; J0131

== ENCOUNTER 2020-06-22 06:07 | Emergency (ER) | payer OTHER ==
[2020-06-22 06:50] VITALS: BMI 24.7
[2020-06-22] MEDS ORDERED: SODIUM CHLORIDE 1,000 ML IV STA (08:06)
[2020-06-22] MEDS ORDERED: ACETAMINOPHEN 1000 MG/100 ML VIAL (NON FORMULARY) IVPB ONE (08:06)
[2020-06-22] MEDS ORDERED: METOCLOPRAMIDE HCL INJECTION 10 MG/2 ML VIAL IVPB ONE (08:06)
[2020-06-22] MEDS ORDERED: METOCLOPRAMIDE HCL INJECTION 10 MG/2 ML VIAL ONE (08:30)
[2020-06-22] MEDS ORDERED: ACETAMINOPHEN INJECTION 100 ML IVPB ONE (08:30)
[2020-06-22 09:25] LABS: BASO % 0.3 % (0-2.0); EOS % 2.8 % (0-4.5); HEMATOCRIT 34.6 % (32.4-45.2); HEMOGLOBIN 11.6 GM/dL (10.7-15.3); LYMPH % 20.3 % (8-40); MCHC 33.6 g/dl (32.0-36.0); MEAN CELL VOLUME 83.2 fl (80-96); MEAN PLT VOLUME 7.6 fl (7.5-11.1); MONO % 6.4 % (3.8-10.2); NEUT % 70.2 % (42.8-82.8); PH,URINE 5.5 (5.0-8.0); PLATELET COUNT 325 K/MM3 (134-434); RBC 4.15 M/mm3 (3.60-5.2); RDW 14.7 % (11.6-15.6); URINE APPEARANCE CLEAR; URINE BILIRUBIN NEGATIVE (NEGATIVE); URINE COLOR YELLOW; URINE GLUCOSE (UA) NEGATIVE (NEGATIVE); URINE KETONE NEGATIVE (NEGATIVE); URINE LEUK ESTERASE NEGATIVE (NEGATIVE); URINE NITRITE NEGATIVE (NEGATIVE); URINE PROTEIN NEGATIVE (NEGATIVE); URINE UROBILINOGEN 0.2 mg/dL (0.2-1.0); WHITE BLOOD COUNT 7.8 K/mm3 (4.0-10.0)
[2020-06-22 09:26] LABS: HCG,QUALITATIVE URINE Negative
[2020-06-22 09:48] LABS: ALBUMIN 3.4 g/dl (3.4-5.0); BILIRUBIN,TOTAL 0.5 mg/dL (0.2-1); BLOOD UREA NITROGEN 8.7 mg/dL (7-18); CALCIUM 8.7 mg/dL (8.5-10.1); CREATININE 0.6 mg/dL (0.55-1.3); POTASSIUM 4.3 mmol/L (3.5-5.1); TOT PROT 6.5 g/dl (6.4-8.2)
[2020-06-22] MEDS ORDERED: KETOROLAC TROMETHAMINE 15 MG/ML VIAL IVPUSH ONE (10:13)
[2020-06-22] MEDS ORDERED: KETOROLAC TROMETHAMINE 15 MG/ML VIAL ONE (10:25)
[2020-06-22 10:47] VITALS: BP 131/80; PULSE 65; TEMP 97.7
== END 2020-06-22 10:46 | disposition home or self-care (01) ==
LOC: JER 06:07
PROC: 3E033NZ Introduction of Analgesics, Hypnotics, Sedatives into Peripheral Vein, Percutaneous Approach (ICD-10-PCS; principal; 2020-06-22)
PROC: 3E033GC Introduction of Other Therapeutic Substance into Peripheral Vein, Percutaneous Approach (ICD-10-PCS; 2020-06-22)
PROC: 3E0333Z Introduction of Anti-inflammatory into Peripheral Vein, Percutaneous Approach (ICD-10-PCS; 2020-06-22)
PROC: 3E0337Z Introduction of Electrolytic and Water Balance Substance into Peripheral Vein, Percutaneous Approach (ICD-10-PCS; 2020-06-22)
DX: J32.9 Chronic sinusitis, unspecified (principal)
CPT/HCPCS: 36415; 70450-TC; 80053; 81003; 84703; 85025; 87086; 87186; 99285-25; J0131

== ENCOUNTER 2020-06-25 20:13 | Emergency (ER) | payer OTHER ==
[2020-06-25 20:54] VITALS: BP 170/89; PULSE 87; TEMP 98.5; BMI 46.0
[2020-06-27 07:12] LABS: SARS-CoV-2 NAA Not Detected (Not Detected)
== END 2020-06-25 23:17 | disposition home or self-care (01) ==
LOC: JER 20:13
DX: R51.9 Headache, unspecified (principal); Z20.822 Contact with and (suspected) exposure to COVID-19
CPT/HCPCS: 99283-25; C9803; U0003; U0005

== ENCOUNTER 2020-07-01 00:03 | Emergency (ER) | payer OTHER ==
[2020-07-01 00:52] VITALS: BP 141/92; PULSE 76; TEMP 98.2; BMI 47.9
[2020-07-01] MEDS ORDERED: MAG HYDROX/AL HYDROX/SIMETH 30 ML UNIT-DOSE CUP PO ONE (01:41)
[2020-07-01] MEDS ORDERED: ACETAMINOPHEN 1000 MG/100 ML VIAL (NON FORMULARY) IVPB ONE (01:41)
[2020-07-01] MEDS ORDERED: FAMOTIDINE 20 MG/50 ML IVPB 20 MG/50 ML MG IVPB ONE ×2 (01:41→01:56)
[2020-07-01] MEDS ORDERED: MAG HYDROX/AL HYDROX/SIMETH 30 ML UNIT-DOSE CUP ONE (01:56)
[2020-07-01] MEDS ORDERED: ACETAMINOPHEN INJECTION 100 ML IVPB ONE (01:56)
[2020-07-01 03:01] LABS: BASO % 0.3 % (0-2.0); EOS % 2.7 % (0-4.5); HEMATOCRIT 36.2 % (32.4-45.2); HEMOGLOBIN 12.1 GM/dL (10.7-15.3); LYMPH % 29.4 % (8-40); MCHC 33.4 g/dl (32.0-36.0); MEAN CELL VOLUME 83.8 fl (80-96); NEUT % 59.6 % (42.8-82.8); PLATELET COUNT 352 K/MM3 (134-434); RBC 4.32 M/mm3 (3.60-5.2); WHITE BLOOD COUNT 10.8 K/mm3 (4.0-10.0)
[2020-07-01 03:03] LABS: URINE APPEARANCE CLEAR; URINE BILIRUBIN NEGATIVE (NEGATIVE); URINE COLOR YELLOW; URINE GLUCOSE (UA) NEGATIVE (NEGATIVE); URINE KETONE NEGATIVE (NEGATIVE); URINE LEUK ESTERASE NEGATIVE (NEGATIVE); URINE NITRITE NEGATIVE (NEGATIVE); URINE PROTEIN NEGATIVE (NEGATIVE); URINE UROBILINOGEN 0.2 mg/dL (0.2-1.0)
[2020-07-01 03:15] LABS: CHLORIDE 105 mmol/L (98-107); SODIUM 137 mmol/L (136-145)
[2020-07-01 03:18] LABS: ALBUMIN 3.6 g/dl (3.4-5.0); ANION GAP 2 MMOL/L (8-16); BLOOD UREA NITROGEN 9.5 mg/dL (7-18); CALCIUM 8.8 mg/dL (8.5-10.1); CO2 30 mmol/L (21-32)
[2020-07-01 03:21] LABS: SGOT/AST 31 U/L (15-37); SGPT/ALT 34 U/L (13-61)
[2020-07-01 03:23] LABS: BILIRUBIN,TOTAL 0.5 mg/dL (0.2-1); TOT PROT 7.1 g/dl (6.4-8.2)
[2020-07-01 03:24] LABS: ALK PHOS 90 U/L (45-117)
[2020-07-01 03:26] LABS: CREATININE 0.6 mg/dL (0.55-1.3); GLUCOSE,RANDOM 88 mg/dL (74-106)
[2020-07-01] MEDS ORDERED: IBUPROFEN 400 MG TABLET (FP) PO ONE ×2 (03:40→03:45)
[2020-07-01] MEDS ORDERED: CLINDAMYCIN HCL 150 MG CAPSULE (FP) PO ONE (03:44)
[2020-07-01] MEDS ORDERED: CLINDAMYCIN HCL 150 MG CAPSULE (FP) ONE (03:45)
[2020-07-01] MEDS ORDERED: metroNIDAZOLE 250 MG TABLET ONE ×2 (04:05→04:06)
[2020-07-01] MEDS ORDERED: metroNIDAZOLE 250 MG TABLET PO ONE (04:05)
== END 2020-07-01 04:14 | disposition home or self-care (01) ==
LOC: JER 00:03
PROC: 3E0333Z Introduction of Anti-inflammatory into Peripheral Vein, Percutaneous Approach (ICD-10-PCS; principal; 2020-07-01)
PROC: 3E033GC Introduction of Other Therapeutic Substance into Peripheral Vein, Percutaneous Approach (ICD-10-PCS; 2020-07-01)
DX: K02.63 Dental caries on smooth surface penetrating into pulp (principal); R10.84 Generalized abdominal pain
CPT/HCPCS: 36415; 80053; 81003; 84484; 85025; 87086; 93005; 93010; 99284-25; J0131

== ENCOUNTER 2020-07-09 18:05 | Emergency (ER) | payer OTHER ==
[2020-07-09 18:19] VITALS: BP 109/75; PULSE 94; TEMP 97.5; BMI 47.5
[2020-07-09] MEDS ORDERED: ONDANSETRON 4 MG/2 ML VIAL IVPUSH ONE (18:39)
[2020-07-09] MEDS ORDERED: SODIUM CHLORIDE 1,000 ML IV STA (18:39)
[2020-07-09] MEDS ORDERED: ACETAMINOPHEN 1000 MG/100 ML VIAL (NON FORMULARY) IVPB ONE (18:39)
[2020-07-09] MEDS ORDERED: ACETAMINOPHEN INJECTION 100 ML IVPB ONE (19:28)
[2020-07-09] MEDS ORDERED: ONDANSETRON 4 MG/2 ML VIAL ONE (19:28)
[2020-07-09 19:48] LABS: BASO % 0.3 % (0-2.0); EOS % 2.4 % (0-4.5); HEMATOCRIT 35.2 % (32.4-45.2); HEMOGLOBIN 11.7 GM/dL (10.7-15.3); LYMPH % 23.5 % (8-40); MCHC 33.4 g/dl (32.0-36.0); MEAN PLT VOLUME 7.8 fl (7.5-11.1); MONO % 6.2 % (3.8-10.2); NEUT % 67.6 % (42.8-82.8); PLATELET COUNT 339 K/MM3 (134-434); RBC 4.19 M/mm3 (3.60-5.2); RDW 14.9 % (11.6-15.6); WHITE BLOOD COUNT 9.2 K/mm3 (4.0-10.0)
[2020-07-09 20:05] LABS: CHLORIDE 108 mmol/L (98-107); SODIUM 140 mmol/L (136-145)
[2020-07-09 20:08] LABS: CALCIUM 8.7 mg/dL (8.5-10.1)
[2020-07-09 20:09] LABS: ALBUMIN 3.4 g/dl (3.4-5.0); ANION GAP 5 MMOL/L (8-16); BLOOD UREA NITROGEN 10.6 mg/dL (7-18); CO2 27 mmol/L (21-32); GLUCOSE,RANDOM 108 mg/dL (74-106); LIPASE 96 U/L (73-393)
[2020-07-09 20:12] LABS: CREATININE 0.8 mg/dL (0.55-1.3); SGOT/AST 14 U/L (15-37); SGPT/ALT 24 U/L (13-61)
[2020-07-09 20:13] LABS: BILIRUBIN,TOTAL 0.8 mg/dL (0.2-1); TOT PROT 6.8 g/dl (6.4-8.2)
[2020-07-09 20:15] LABS: ALK PHOS 81 U/L (45-117)
[2020-07-09 21:28] LABS: PH,URINE 5.5 (5.0-8.0); URINE APPEARANCE CLEAR; URINE BILIRUBIN NEGATIVE (NEGATIVE); URINE COLOR YELLOW; URINE GLUCOSE (UA) NEGATIVE (NEGATIVE); URINE KETONE NEGATIVE (NEGATIVE); URINE LEUK ESTERASE NEGATIVE (NEGATIVE); URINE NITRITE NEGATIVE (NEGATIVE); URINE PROTEIN NEGATIVE (NEGATIVE)
[2020-07-09 21:36] LABS: HCG,QUALITATIVE URINE Negative
== END 2020-07-09 22:09 | disposition home or self-care (01) ==
LOC: JER 18:05
PROC: 3E0333Z Introduction of Anti-inflammatory into Peripheral Vein, Percutaneous Approach (ICD-10-PCS; principal; 2020-07-09)
PROC: 3E033GC Introduction of Other Therapeutic Substance into Peripheral Vein, Percutaneous Approach (ICD-10-PCS; 2020-07-09)
DX: R42 Dizziness and giddiness (principal); R10.13 Epigastric pain
CPT/HCPCS: 36415; 71046-TC-FY; 80053; 81003; 82550; 83690; 84484; 84703; 85025; 87086; 93005; 93010; 99285-25; J0131

== ENCOUNTER 2021-07-22 09:16 | Emergency (ER) | payer OTHER ==
[2021-07-22 09:31] VITALS: BMI 45.1
[2021-07-22] MEDS ORDERED: FAMOTIDINE 20 MG/50 ML IVPB 20 MG/50 ML MG IVPB ONE (09:48)
[2021-07-22] MEDS ORDERED: SODIUM CHLORIDE 0.9% 500 ML INFUS.BAG IV ONE ×2 (09:48→12:45)
[2021-07-22] MEDS ORDERED: ONDANSETRON 4 MG/2 ML VIAL IVPUSH ONE (09:48)
[2021-07-22] MEDS ORDERED: ONDANSETRON 4 MG/2 ML VIAL ONE (09:53)
[2021-07-22] MEDS ORDERED: FAMOTIDINE 10 MG/ML VIAL IVPB ONE (09:54)
[2021-07-22 11:26] LABS: HCG,QUALITATIVE URINE Negative
[2021-07-22 11:27] LABS: BASO % 0.4 % (0-2.0); EOS % 0.5 % (0-4.5); HEMATOCRIT 37.9 % (32.4-45.2); HEMOGLOBIN 12.8 GM/dL (10.7-15.3); MCH 27.9 pg (25.7-33.7); MCHC 33.7 g/dl (32.0-36.0); MEAN CELL VOLUME 82.8 fl (80-96); MEAN PLT VOLUME 7.7 fl (7.5-11.1); MONO % 5.3 % (3.8-10.2); NEUT % 78.8 % (42.8-82.8); PLATELET COUNT 376 10^3/uL (134-434); RBC 4.58 M/mm3 (3.60-5.2); RDW 14.5 % (11.6-15.6); WHITE BLOOD COUNT 13.5 K/mm3 (4.0-10.0)
[2021-07-22 11:29] LABS: EPI CELLS 9 /uL (0-25.1); HYALINE CASTS 2 /uL (0-3.1); PH,URINE 6.5 (5.0-8.0); URINE APPEARANCE CLEAR; URINE BACTERIA 62 /uL (0-1359); URINE BILIRUBIN NEGATIVE (NEGATIVE); URINE COLOR YELLOW; URINE GLUCOSE (UA) NEGATIVE (NEGATIVE); URINE KETONE 2+ (NEGATIVE); URINE LEUK ESTERASE NEGATIVE (NEGATIVE); URINE NITRITE NEGATIVE (NEGATIVE); URINE PROTEIN 1+ (NEGATIVE); URINE RBC 15 /uL (0-23.9); URINE UROBILINOGEN 0.2 mg/dL (0.2-1.0); URINE WBC 5 /uL (0-25.8)
[2021-07-22 11:32] LABS: OPIATES, URI NEGATIVE (NEGATIVE); PHENCYCLIDINE,URINE NEGATIVE (NEGATIVE)
[2021-07-22 11:36] LABS: COCAINE, UR NEGATIVE (NEGATIVE); METHADONE, UR NEGATIVE (NEGATIVE); URINE AMPHETAMINES POSITIVE (NEGATIVE); URINE BARBITURATES NEGATIVE (NEGATIVE); URINE BENZODIAZEPINES NEGATIVE (NEGATIVE)
[2021-07-22 11:39] LABS: ALBUMIN 3.9 g/dl (3.4-5.0); BLOOD UREA NITROGEN 5.5 mg/dL (7-18); CALCIUM 9.6 mg/dL (8.5-10.1)
[2021-07-22 11:42] LABS: CREATININE 0.7 mg/dL (0.55-1.3)
[2021-07-22 11:44] LABS: BILIRUBIN,TOTAL 0.5 mg/dL (0.2-1); TOT PROT 7.9 g/dl (6.4-8.2)
[2021-07-22] MEDS ORDERED: ACETAMINOPHEN 1000 MG/100 ML BAG IVPB ONE (12:45)
[2021-07-22 12:47] VITALS: BP 120/62; TEMP 98.2
[2021-07-22] MEDS ORDERED: ACETAMINOPHEN INJECTION 100 ML IVPB ONE (12:48)
[2021-07-22] MEDS ORDERED: MAG HYDROX/AL HYDROX/SIMETH 30 ML UNIT-DOSE CUP PO ONE (12:58)
[2021-07-22] MEDS ORDERED: MAG HYDROX/AL HYDROX/SIMETH 30 ML UNIT-DOSE CUP ONE (13:01)
[2021-07-22 14:51] VITALS: PULSE 88
== END 2021-07-22 14:30 | disposition home or self-care (01) ==
LOC: JER 09:16
PROC: 3E033GC Introduction of Other Therapeutic Substance into Peripheral Vein, Percutaneous Approach (ICD-10-PCS; principal; 2021-07-22)
DX: R10.13 Epigastric pain (principal)
CPT/HCPCS: 36415; 71046-TC-FY; 80053; 80307; 81003; 83690; 84484; 84703; 85025; 87086; 93005; 93010; 99285-25

== ENCOUNTER 2021-07-29 12:25 | Emergency (ER) | payer OTHER ==
[2021-07-29 12:36] VITALS: TEMP 98; BMI 46.0
[2021-07-29] MEDS ORDERED: KETOROLAC TROMETHAMINE 30 MG/1 ML VIAL IVPUSH ONE (13:51)
[2021-07-29] MEDS ORDERED: SODIUM CHLORIDE 0.9% 500 ML INFUS.BAG IV ONE (13:51)
[2021-07-29 14:14] LABS: BASO % 0.5 % (0-2.0); EOS % 3.1 % (0-4.5); HEMOGLOBIN 12.6 GM/dL (10.7-15.3); LYMPH % 23.8 % (8-40); MCH 27.6 pg (25.7-33.7); MCHC 33.2 g/dl (32.0-36.0); MEAN CELL VOLUME 83.2 fl (80-96); MONO % 8.4 % (3.8-10.2); NEUT % 64.2 % (42.8-82.8); PLATELET COUNT 344 10^3/uL (134-434); RBC 4.57 M/mm3 (3.60-5.2); RDW 14.3 % (11.6-15.6); WHITE BLOOD COUNT 5.6 K/mm3 (4.0-10.0)
[2021-07-29] MEDS ORDERED: KETOROLAC TROMETHAMINE 30 MG/1 ML VIAL ONE (14:33)
[2021-07-29 14:35] LABS: ALBUMIN 3.8 g/dl (3.4-5.0)
[2021-07-29 14:36] LABS: BLOOD UREA NITROGEN 9.3 mg/dL (7-18)
[2021-07-29 14:40] LABS: BILIRUBIN,TOTAL 0.5 mg/dL (0.2-1); CREATININE 0.7 mg/dL (0.55-1.3); TOT PROT 7.5 g/dl (6.4-8.2)
[2021-07-29 19:48] VITALS: BP 142/86; PULSE 87
== END 2021-07-29 19:48 | disposition home or self-care (01) ==
LOC: JERFT 12:25
PROC: 3E033GC Introduction of Other Therapeutic Substance into Peripheral Vein, Percutaneous Approach (ICD-10-PCS; principal; 2021-07-29)
DX: K11.20 Sialoadenitis, unspecified (principal)
CPT/HCPCS: 36415; 70487-TC; 80053; 84703; 85025; 86735; 87040; 93971; 99285-25; Q9967

== ENCOUNTER 2022-03-18 17:21 | Emergency (ER) | payer OTHER ==
[2022-03-18 17:38] VITALS: BP 152/85; PULSE 88; RESP 20; TEMP 98.6; BMI 46.0
== END 2022-03-18 18:45 | disposition home or self-care (01) ==
LOC: JER 17:21
DX: J20.9 Acute bronchitis, unspecified (principal)
CPT/HCPCS: 0241U-QW; 71046-TC-FY; 99284-25

== ENCOUNTER 2022-06-17 13:44 | Emergency (ER) | payer OTHER ==
[2022-06-17 14:09] VITALS: BMI 44.8
[2022-06-17] MEDS ORDERED: SODIUM CHLORIDE 0.9% 500 ML INFUS.BAG IV ONE (14:54)
[2022-06-17] MEDS ORDERED: METOCLOPRAMIDE HCL INJECTION 10 MG/2 ML VIAL IVPB ONE (14:54)
[2022-06-17] MEDS ORDERED: ACETAMINOPHEN 1000 MG/100 ML BAG IVPB ONE (14:54)
[2022-06-17] MEDS ORDERED: METOCLOPRAMIDE HCL INJECTION 10 MG/2 ML VIAL ONE (15:08)
[2022-06-17] MEDS ORDERED: ACETAMINOPHEN INJECTION 100 ML IVPB ONE (15:08)
[2022-06-17 15:23] LABS: BASO % 0.7 % (0-2.0); EOS % 2.9 % (0-4.5); HEMATOCRIT 38.7 % (32.4-45.2); HEMOGLOBIN 12.7 GM/dL (10.7-15.3); LYMPH % 20.5 % (8-40); MCHC 32.9 g/dl (32.0-36.0); MEAN PLT VOLUME 7.6 fl (7.5-11.1); MONO % 6.5 % (3.8-10.2); NEUT % 69.4 % (42.8-82.8); PLATELET COUNT 390 10^3/uL (134-434); RBC 4.72 M/mm3 (3.60-5.2); RDW 14.3 % (11.6-15.6); WHITE BLOOD COUNT 8.8 K/mm3 (4.0-10.0)
[2022-06-17 15:34] LABS: ALBUMIN 3.6 g/dl (3.4-5.0); BLOOD UREA NITROGEN 5.4 mg/dL (7-18); CALCIUM 9.2 mg/dL (8.5-10.1)
[2022-06-17 15:37] LABS: CREATININE 0.7 mg/dL (0.55-1.3)
[2022-06-17 15:38] LABS: BILIRUBIN,TOTAL 0.6 mg/dL (0.2-1); TOT PROT 7.1 g/dl (6.4-8.2)
[2022-06-17 17:05] VITALS: BP 142/85; PULSE 64; RESP 18; TEMP 97.1
== END 2022-06-17 17:07 | disposition home or self-care (01) ==
LOC: JER 13:44
PROC: 3E033NZ Introduction of Analgesics, Hypnotics, Sedatives into Peripheral Vein, Percutaneous Approach (ICD-10-PCS; principal; 2022-06-17)
PROC: 3E033GC Introduction of Other Therapeutic Substance into Peripheral Vein, Percutaneous Approach (ICD-10-PCS; 2022-06-17)
DX: R51.9 Headache, unspecified (principal); I10 Essential (primary) hypertension; R42 Dizziness and giddiness; Z20.822 Contact with and (suspected) exposure to COVID-19
CPT/HCPCS: 0241U-QW; 36415; 70450-TC; 71045-TC-FY; 80053; 82962; 84484; 84703; 85025; 93005; 93010; 99285-25